=== PATIENT | female | born 1940 | race Caucasian/White ===

== ENCOUNTER → 2018-04-18 | Outpatient (CLI) | payer MEDICARE ==
--- NOTE | 2018-04-19 16:42 | BD ---
EXAMINATION TYPE: Axial Bone Density DATE OF EXAM: 04/18/2018 COMPARISON: 2013 CLINICAL HISTORY: post menopausal Height: 4'11 Weight: 190 FRAX RISK QUESTIONS: History of Fracture in Adulthood: y Secondary Osteoporosis: RISK FACTORS HISTORY OF: History of Wrist Fracture: left When: Surgery to )/Wrist (/left): When: 1998 Active: n Diet low in dairy products/other sources of calcium: n Postmenopausal woman: y Frequent falls: y MEDICATIONS: Additional Medications: blood pressure, pain Additional History: EXAM MEASUREMENTS: Bone mineral densitometry was performed using the [employer] System. Bone mineral density as measured about the Lumbar spine is: ----- L1-L4(G/cm2): 1.598 T Score Values are as follows: ----- L2: 3.3 ----- L3: 2.5 ----- L4: 4.5 ----- L1-L4:3.5 Bone mineral density has: Increased 8.7% since study of: 12/07/2013 Bone mineral density about the R hip (g/cm2): 0.774 Bone mineral density about the L hip (g/cm2): 0.856 T Score values are as follows -----R Neck: -1.9 -----L Neck: -1.3 -----R Total: -1.5 -----L Total: -0.7 Bone mineral density has: Decreased -5.4% since study of: 12/07/2013 IMPRESSION: Osteopenia (T Score between -2.5 and -1). There is slightly increased risk of fracture and the patient may be considered for treatment. Re-Screen 2-5 years. NOTE: T-SCORE=SD OF THE YOUNG ADULT MEAN.
--- NOTE | 2018-04-20 12:08 | MM ---
Reason for exam: screening (asymptomatic). Last mammogram was performed 2 years and 5 months ago. History: Patient is postmenopausal. Benign MG stereo VAD BX LT of the left breast, December 25, 2013. Benign excisional biopsy of the left breast, 2003. Physical Findings: A clinical breast exam by your physician is recommended on an annual basis and results should be correlated with mammographic findings. MG 3D Screening Mammo W/Cad Bilateral CC and MLO view(s) were taken. Prior study comparison: November 05, 2015, bilateral MG diagnostic mammo w CAD [facility]. December 03, 2014, bilateral MG screening mammo w CAD. There are scattered fibroglandular densities. Finding: There are stable, fine, diffuse/scattered calcifications in both breasts. Previous mammotome biopsy in the left breast. Post surgical changes in the left breast. ASSESSMENT: Benign, BI-RAD 2 RECOMMENDATION: Routine screening mammogram of both breasts in 1 year.
== END ==
LOC: RADMAMWWP 14:45
PROVIDERS: ATTEND Family Medicine
DX: Z12.31 Encounter for screening mammogram for malignant neoplasm of breast (principal); M85.80 Other specified disorders of bone density and structure, unspecified site; Z78.0 Asymptomatic menopausal state
CPT/HCPCS: 77063; 77067; 77080

== ENCOUNTER → 2018-12-14 | Outpatient (CLI) | payer MEDICARE ==
--- NOTE | 2018-12-14 11:37 | US ---
EXAMINATION TYPE: US abdomen complete DATE OF EXAM: 12/14/2018 COMPARISON: us CLINICAL HISTORY: R10.11 right upper quad pain. EXAM MEASUREMENTS: Liver Length: 11.99 cm Gallbladder Wall: 0.17 cm CBD: 0.21 cm Spleen: cm Right Kidney: 10.4 x 4.0 x 4.8 cm cm Left Kidney: 10.2 x 4.4 x 4.4 cm cm Patient morbidly obese with severe overlying midline bowel gas. Technically difficult and limited hossein dy. Pancreas: Obscured by bowel gas Liver: Increased attenuation, decreased visualization of vessels suggestive of fatty infiltrate Gallbladder: wnl Evidence for sonographic Brooks's sign: no CBD: wnl Spleen: wnl Right Kidney: No hydronephrosis or masses seen Left Kidney: No hydronephrosis or masses seen, inferior pole obscured by bowel gas Upper IVC: wnl Abd Aorta: partially obscured by overlying bowel gas, portions visualized wnl The intrahepatic portion of the IVC and proximal abdominal aorta are within normal limits. There is no evidence of cholelithiasis. Common bile duct is unremarkable. The visualized portions of the pa ncreas are homogenous. The spleen is unremarkable. Kidneys are symmetric and free of hydronephrosis . No renal lesions are seen. IMPRESSION: 1. Hepatic steatosis
== END | disposition home or self-care (01) ==
LOC: RADUSWWP 10:10
PROVIDERS: ATTEND Nurse Practitioner Family
DX: K76.0 Fatty (change of) liver, not elsewhere classified (principal)
CPT/HCPCS: 76700

== ENCOUNTER → 2019-08-28 | Outpatient (CLI) | payer MEDICARE ==
--- NOTE | 2019-09-04 08:04 | MM ---
Reason for exam: screening (asymptomatic). Last mammogram was performed 1 year and 4 months ago. History: Patient is postmenopausal. Benign MG stereo VAD BX LT of the left breast, December 25, 2013. Benign excisional biopsy of the left breast, 2003. Physical Findings: A clinical breast exam by your physician is recommended on an annual basis and results should be correlated with mammographic findings. MG 3D Screening Mammo W/Cad Bilateral CC, MLO, and XCCL view(s) were taken. Prior study comparison: April 18, 2018, bilateral MG 3d screening mammo w/cad. November 05, 2015, bilateral MG diagnostic mammo w CAD [facility]. There are scattered fibroglandular densities. There is chronic nodularity bilaterally. Increasing grouped calcifications near a previous 2 o'clock left breast biopsy site. Surgical clips left axilla. ASSESSMENT: Incomplete: need additional imaging evaluation, BI-RAD 0 RECOMMENDATION: Special view mammogram of the left breast. (magnifications) [facility] will attempt to contact patient to return for supplemental views.
== END | disposition home or self-care (01) ==
LOC: RADMAMWWP 11:51
PROVIDERS: ATTEND Family Medicine
DX: Z12.31 Encounter for screening mammogram for malignant neoplasm of breast (principal)
CPT/HCPCS: 77063; 77067

== ENCOUNTER → 2019-09-20 | Outpatient (CLI) | payer MEDICARE ==
--- NOTE | 2019-09-21 09:24 | MM ---
Reason for exam: additional evaluation requested from abnormal screening. Last mammogram was performed 1 month ago. History: Patient is postmenopausal. Benign MG stereo VAD BX LT of the left breast, December 25, 2013. Benign excisional biopsy of the left breast, 2003. Physical Findings: Nurse did not find any significant physical abnormalities on exam. MG 3D Work Up W/Cad LT CC with magnification, MLO with magnification, and LM view(s) were taken of the left breast. Prior study comparison: August 28, 2019, bilateral MG 3d screening mammo w/cad. April 18, 2018, bilateral MG 3d screening mammo w/cad. There are scattered fibroglandular densities. Finding: There are typically benign round, coarse, grouped/clustered calcifications in the upper outer quadrant of the left breast consistent with dystrophic calcifications post biopsy. These results were verbally communicated with the patient and result sheet given to the patient on 09/20/19. ASSESSMENT: Probably benign, BI-RAD 3 RECOMMENDATION: Follow-up diagnostic mammogram of the left breast in 6 months.
== END | disposition home or self-care (01) ==
LOC: RADMAMWWP 13:51
PROVIDERS: ATTEND Family Medicine
DX: R92.8 Other abnormal and inconclusive findings on diagnostic imaging of breast (principal)
CPT/HCPCS: 77065; G0279; 77061

== ENCOUNTER → 2020-05-10 | Outpatient (CLI) | payer MEDICARE ==
--- NOTE | 2020-05-10 13:53 | MM ---
Reason for exam: screening (asymptomatic). Last mammogram was performed 8 months ago. History: Patient is postmenopausal. Benign MG stereo VAD BX LT of the left breast, December 25, 2013. Benign excisional biopsy of the left breast, 2003. Physical Findings: A clinical breast exam by your physician is recommended on an annual basis and results should be correlated with mammographic findings. MG 3D Diag Mammo W/Cad LT CC and MLO view(s) were taken of the left breast. Prior study comparison: September 20, 2019, left breast MG 3d work up w/cad LT. August 28, 2019, bilateral MG 3d screening mammo w/cad. There are scattered fibroglandular densities. Finding: There are stable coarse heterogeneous, grouped/clustered calcifications in the upper outer quadrant, middle position of the left breast. No significant changes in finding since September 20, 2019 and August 28, 2019. These results were verbally communicated with the patient and result sheet given to the patient on 05/10/20. ASSESSMENT: Benign, BI-RAD 2 RECOMMENDATION: Return to routine screening mammogram schedule for both breasts. Back on schedule for August 2020.
== END | disposition home or self-care (01) ==
LOC: RADMAMWWP 12:46
PROVIDERS: ATTEND Family Medicine
DX: R92.8 Other abnormal and inconclusive findings on diagnostic imaging of breast (principal)
CPT/HCPCS: 77065; G0279; 77061

== ENCOUNTER → 2020-11-22 | Outpatient (CLI) | payer MEDICARE ==
--- NOTE | 2020-11-25 10:21 | MM ---
Reason for exam: screening (asymptomatic). Last mammogram was performed 6 months ago. History: Patient is postmenopausal. Benign MG stereo VAD BX LT of the left breast, December 25, 2013. Benign excisional biopsy of the left breast, 2003. Physical Findings: A clinical breast exam by your physician is recommended on an annual basis and results should be correlated with mammographic findings. MG 3D Screening Mammo W/Cad Bilateral CC, MLO, and XCCL view(s) were taken. Prior study comparison: May 10, 2020, left breast MG 3d diag mammo w/cad LT. September 20, 2019, left breast MG 3d work up w/cad LT. The breast tissue is heterogeneously dense. This may lower the sensitivity of mammography. Stable benign calcifications. There is no discrete abnormality. No significant changes when compared with prior studies. ASSESSMENT: Benign, BI-RAD 2 RECOMMENDATION: Routine screening mammogram of both breasts in 1 year.
== END | disposition home or self-care (01) ==
LOC: RADMAMWWP 13:43
PROVIDERS: ATTEND Family Medicine
DX: Z12.31 Encounter for screening mammogram for malignant neoplasm of breast (principal); Z78.0 Asymptomatic menopausal state
CPT/HCPCS: 77063; 77067

== ENCOUNTER → 2022-07-28 | Outpatient (CLI) | payer MEDICARE ==
--- NOTE | 2022-07-29 08:55 | CT ---
EXAMINATION TYPE: CT abdomen pelvis w con DATE OF EXAM: 07/28/2022 COMPARISON: 03/27/2014 HISTORY: 81-year-old female R10.32, left LOWER ABDOMINAL PAIN TECHNIQUE: Contiguous axial scanning of the abdomen and pelvis following administration of 100 ml Iso bria 300 IV contrast. Delayed images through the kidneys and coronal/sagittal reconstructions perform ed. CT DLP: 1528.70 mGycm Automated exposure control for dose reduction was used. FINDINGS: Heart upper limits of normal in size without pericardial effusion. Lung bases clear without pleural e ffusion. Tiny hiatal hernia. A couple tiny benign hepatic cysts are present measuring up to 7 mm. Portal venous system is patent. No biliary ductal dilatation. The gallbladder, adrenal glands, right kidney, spleen, and pancreas within normal limits. Symmetric u ptake and excretion of contrast from both kidneys. Tiny 1.2 cm cortical cyst upper pole left kidney. No dilated small bowel, free fluid, or free air. No mesenteric or retroperitoneal lymphadenopathy. The appendix is not clearly identified. No secondary findings of acute appendicitis in the right lowe r quadrant. Oral contrast progressed to the mid transverse colon. There is mild overall stool burden. Left-sided colonic diverticulosis, greatest in the lower descending and proximal sigmoid colon. Ther e is previous staple line from prior resection and reanastomosis of the mid sigmoid colon and adjacen t surgical clips. No pericolonic inflammatory change. There is pelvic floor relaxation redemonstrated. Mild to moderate circumferential bladder wall thicke ange. Uterus surgically absent. Neither ovary clearly seen. No abnormal fluid collections pelvis or p elvic lymphadenopathy. Bones: Mild degenerative change of both hips. Advanced spondylotic change throughout the visualized l umbar spine. Dictation the lower thoracic spine. Possible multiple levels of severe secondary spinal canal stenosis in the lumbar spine. IMPRESSION: 1. LEFT-SIDED COLONIC DIVERTICULOSIS. PREVIOUS RESECTION AND RE-ANASTOMOSIS ALONG THE MID SIGMOID COL ON AND SOME ADJACENT SURGICAL CLIPS IN THE MESENTERY. NO CT EVIDENCE FOR ACUTE DIVERTICULITIS AT THIS TIME. 2. PELVIC FLOOR RELAXATION. STATUS POST HYSTERECTOMY. 3. CIRCUMFERENTIAL BLADDER WALL THICKENING MAY BE CHRONIC FROM THE PATIENT. CORRELATE TO EXCLUDE CYST ITIS. 4. ADVANCED SPONDYLOTIC CHANGE THROUGHOUT THE LUMBAR SPINE. 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 THERE M AY BE LEVELS OF FOCAL SEVERE SPINAL CANAL STENOSIS THROUGHOUT THE LUMBAR SPINE. 5. TINY HIATAL HERNIA.
== END | disposition home or self-care (01) ==
LOC: RADCTMAIN 12:01
PROVIDERS: ATTEND Family Medicine
DX: K44.9 Diaphragmatic hernia without obstruction or gangrene (principal); N32.89 Other specified disorders of bladder; K57.30 Diverticulosis of large intestine without perforation or abscess without bleeding; M47.816 Spondylosis without myelopathy or radiculopathy, lumbar region
CPT/HCPCS: 82565; 84520; 74177; 36415; Q9967

== ENCOUNTER → 2022-12-21 | Outpatient (CLI) | payer MEDICARE ==
--- NOTE | 2022-12-21 10:14 | MM ---
Reason for Exam: Screening (asymptomatic). Last mammogram was performed 2 year(s) and 1 month(s) ago. Patient History: Menarche at age 15. First Full-Term at age 25. Left ovary removed at age 58. Right ovary removed at age 58. Hysterectomy at age 58. Postmenopausal. 2003, Benign Excisional Biopsy on the left side. 12/25/2013, Benign Core Biopsy on the left side. Risk Values: Irena 5 year model risk: 2.2%. NCI Lifetime model risk: 3.4%. Prior Study Comparison: 09/20/2019 Left Diagnostic Mammogram, [facility]. 05/10/2020 Left Diagnostic Mammogram, [facility]. 11/22/2020 Bilateral Screening Mammogram, [facility]. Tissue Density: There are scattered fibroglandular densities. Findings: Analyzed By CAD. There is no suspicious group of microcalcifications or new suspicious mass in either breast. Stable benign calcifications within both breasts. Biopsy clips within the left breast. There is no suspicious group of microcalcifications or new suspicious mass in either breast. Stable benign calcifications within both breasts. Biopsy clips within the left breast. Surgical clips within the left axilla. There is no suspicious group of microcalcifications or new suspicious mass in either breast. Stable benign calcifications within both breasts. Biopsy clips within the left breast. Surgical clips within the left axilla. Chronic nodularity within the right breast. Overall Assessment: Benign, BI-RAD 2 Management: Screening Mammogram of both breasts in 1 year. A clinical breast exam by your physician is recommended on an annual basis and results should be correlated with mammographic findings. Note on Irena scores and lifetime risk: 1. A Irena score greater than 3% is considered moderate risk. If this is the case, consider specialist referral to assess eligibility for a risk reducing agent. If overall lifetime risk for the development of breast cancer is 20% or higher, the patient may qualify for future screening with alternating mammogram and breast MRI. Electronically signed and approved by: Jethro Mercado D.O.
== END | disposition home or self-care (01) ==
LOC: RADMAMWWP 09:45
PROVIDERS: ATTEND Family Medicine
DX: Z12.31 Encounter for screening mammogram for malignant neoplasm of breast (principal); Z78.0 Asymptomatic menopausal state
CPT/HCPCS: 77063; 77067

== ENCOUNTER → 2023-03-31 | Outpatient (CLI) | payer MEDICARE ==
--- NOTE | 2023-03-31 18:29 | BD ---
EXAMINATION TYPE: Axial Bone Density DATE OF EXAM: 03/31/2023 CLINICAL HISTORY: 82 years old Female. ICD-10 CODE: Z78.0 ASYMPTOMATIC MENOPAUSAL STATE Height: 60 Weight: 177 FRAX RISK QUESTIONS: Alcohol (3 or more units per day): no Family History (Parent hip fracture): no Glucocorticoids (More than 3mos): no (Ex: prednisone, prednisolone, methylprednisolone, dexamethasone, and hydrocortisone). History of Fracture in Adulthood: yes Secondary Osteoporosis: 1. Type 1 Diabetes: no 2. Hyperthyroidism: no 3. Menopause before 45: no 4. Malnutrition: no 5. Chronic liver disease: no Rheumatoid Arthritis: no Current Tobacco Use: no RISK FACTORS HISTORY OF: left wrist fx -1998 Surgery to Spine/Hip(right/left)/Wrist (right/left): no Additional History: EXAM MEASUREMENTS: Bone mineral densitometry was performed using the [employer] System. Bone mineral density as measured about the Lumbar spine is: ----- L1-L4(G/cm2): 1.741 T Score Values are as follows: ----- L1: 2.5 ----- L2: 2.8 ----- L3: 5.5 ----- L4: 7.1 ----- L1-L4: 4.7 Z Score Values are as follows: ----- L1: 3.8 ----- L2: 4.1 ----- L3: 6.9 ----- L4: 8.5 ----- L1-L4: 6.0 Bone mineral density has: increased 8.9 % since study of: 2019 Bone mineral density about the R hip (g/cm2): 0.700 Bone mineral density about the L hip (g/cm2): 0.787 T Score values are as follows: -----R Neck: -2.7 -----L Neck: -2.2 -----R Total: -2.4 -----L Total: -1.8 Z Score values are as follows: -----R Neck: -0.9 -----L Neck: -0.4 -----R Total: -0.8 -----L Total: -0.1 Bone mineral density has: decreased -14.7 % since study of: 2019 FRAX%s: The graph provided illustrates a 17.8% chance for a major osteoporotic fx and a 5.7% chance f or the hips probability for fx in 10 years time. IMPRESSION: Osteoporosis (T Score less than -2.5). There is increased fracture risk and therapy is usually indicated based on age. Re-Screen 1-2 years. NOTE: T-SCORE=SD OF THE YOUNG ADULT MEAN.
== END | disposition home or self-care (01) ==
LOC: RADBDWWP 12:44
PROVIDERS: ATTEND Family Medicine
DX: M81.0 Age-related osteoporosis without current pathological fracture (principal); Z78.0 Asymptomatic menopausal state
CPT/HCPCS: 77080

== ENCOUNTER 2023-05-14 21:49 | Observation (INO) | payer MEDICARE ==
--- NOTE | 2023-05-14 22:08 | ED ---
Chest Pain HPI - General Source: patient, RN notes reviewed Mode of arrival: EMS Limitations: no limitations <Mandy Kelly - Last Filed: 05/14/23 22:07> - General Source: patient, RN notes reviewed, old records reviewed <Ozzie Crawford - Last Filed: 05/15/23 03:58> - General Chief Complaint: Chest Pain Stated Complaint: chest pain Time Seen by Provider: 05/14/23 22:07 - History of Present Illness Initial Comments: Patient is an 82-year-old female presented ER via EMS with chief complaint chest pain. Patient states this started about 8 PM. (Mandy Kelly) Patient is an 82-year-old female who presents emergency department for chest pain. Received 324 mg of aspirin as well as nitro for the pain. States it is in the center of her chest with occasional radiation of the left shoulder. 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 Denies any cardiac history in the past. States this has happened previously though having the chest pain. Started at approximately 8 PM. Is improved at this time. Unknown if the nitro on the way here improved it. Presents for further evaluation. Describes the pain as sharp, achy (Ozzie Crawford) - Related Data Home Medications Medication Instructions Recorded Confirmed HYDROcodone/APAP 10-325MG [[place] 1 tab PO TID 05/19/22 05/19/22 10-325] Losartan Potassium [Cozaar] 100 mg PO DAILY 05/19/22 05/19/22 amLODIPine [Norvasc] 5 mg PO DAILY 05/19/22 05/19/22 Previous Rx's Medication Instructions Recorded Pantoprazole [Protonix] 40 mg PO DAILY #10 tab 05/19/22 Allergies Allergy/AdvReac Type Severity Reaction Status Date / Time No Known Allergies Allergy Verified 05/19/22 07:24 Review of Systems ROS Other: All systems not noted in ROS Statement are negative. <Mandy Kelly - Last Filed: 05/14/23 22:07> ROS Other: All systems not noted in ROS Statement are negative. <Ozzie Crawford - Last Filed: 05/15/23 03:58> ROS Statement: Those systems with pertinent positive or pertinent negative responses have been documented in the HPI. Review of Systems: CONST: Denies fever EYES: Denies blurry vision ENT: Denies nasal congestion C/V: Endorses chest pain RESP: Denies shortness of breath GI: Denies abdominal pain : Denies dysuria SKIN: Denies rash. MSK: Denies joint pain. NEURO: Denies headache (Ozzie Crawford) EKG Findings - EKG Comments: EKG Findings:: 12-lead Electrocardiogram Interpretation Note. EKG was reviewed and interpreted by myself. 12-lead ECG performed at 2208 is interpreted by me as revealing normal sinus rhythm at a rate of 89 beats per minute. [place] is normal. RI interval is 175 ms, QRS duration is 87 ms, QTc is 394 ms. PVC present.. There were no ST or T wave abnormalities to suggest myocardial ischemia or injury. R wave progression across the precordium was satisfactory. By my interpretation this EKG is non-diagnostic for obvious acute ischemia. - EKG Results: EKG: interpreted by ERMD <Ozzie Crawford - Last Filed: 05/15/23 03:58> Past Medical History Past Medical History: Chest Pain / Angina, GERD/Reflux, Hypertension, Pneumonia Additional Past Medical History / Comment(s): left ankle pain, DIVERTICULAR DISEASE,ARTHRITIS, Vertigo History of Any Multi-Drug Resistant Organisms: None Reported Past Surgical History: Appendectomy, Bladder Surgery, Heart Catheterization, Hysterectomy Additional Past Surgical History / Comment(s): BOWEL RESECTION, UMB HERNIA REPAIR, MILLER CATARACTS,COLONOSCOPY Past Anesthesia/Blood Transfusion Reactions: Motion Sickness Past Psychological History: Anxiety Past Alcohol Use History: None Reported Past Drug Use History: None Reported - Past Family History Mother Family Medical History: CVA/TIA, Dementia, Hypertension, Seizure Disorder Additional Family Medical History / Comment(s): AT AGE 83 Father Family Medical History: Diabetes Mellitus, Hypertension Additional Family Medical History / Comment(s): HERNIA <Mandy Kelly - Last Filed: 05/14/23 22:07> General Exam Limitations: no limitations <Mandy Kelly - Last Filed: 05/14/23 22:07> <Ozzie Crawford - Last Filed: 05/15/23 03:58> - General Exam Comments Initial Comments: Visual Physical Exam Vital signs reviewed General: Well-appearing, nontoxic, no acute distress. Head: Normocephalic, atraumatic Eyes: PERRLA, EOMI ENT: Airway patent Chest: Nonlabored breathing Skin: No visual rash, normal skin tone Neuro: Alert and oriented 3 Musculoskeletal: No gross abnormalities (Mandy Kelly) General: Appears in no acute distress. HEAD: Normal with no signs of head trauma. EYES: PERRLA, EOMI, conjunctiva normal, no discharge. ENT: Hearing grossly intact, normal oropharynx. RESPIRATORY: Clear breath sounds bilaterally. No wheezes, rales, or rhonchi. C/V: Regular rate and rhythm. S1 and S2 auscultated, no edema, peripheral pulses 2+ and intact throughout. Chest pain not reproducible on palpation. ABD: Abd is soft, nontender, nondistended EXT: Normal range of motion, no obvious deformity SKIN: No rashes or lesions observed on exposed skin. NEURO: Alert and oriented x 4. (Ozzie Crawford) Course Vital Signs 05/14/23 05/14/23 05/15/23 22:01 23:59 01:10 Temperature 98.5 F Pulse Rate 87 67 61 Respiratory 18 18 18 Rate Blood Pressure 124/67 148/88 142/74 O2 Sat by Pulse 98 97 97 Oximetry 05/15/23 03:00 Temperature Pulse Rate 62 Respiratory 18 Rate Blood Pressure 122/72 O2 Sat by Pulse 96 Oximetry Chest Pain MDM <Mandy Kelly - Last Filed: 05/14/23 22:07> <Ozzie Crawford - Last Filed: 05/15/23 03:58> - MDM I performed the quick note portion of the exam. Electronically signed by Mandy Kelly PA-C (Mandy Kelly) Was pt. sent in by a medical professional or institution ([facility], [employer], urgent care, hospital, or intermediate...) When possible be specific @ -No Did you speak to anyone other than the patient for history (EMS, parent, family, police, friend...)? What history was obtained from this source @ -No Did you review nursing and triage notes (agree or disagree)? Why? @ -I reviewed and agree with nursing and triage notes Were old charts reviewed (outside hosp., previous admission, EMS record, old EKG, old radiological studies, urgent care reports/EKG's, intermediate records)? Report findings @ -Old charts reviewed Differential Diagnosis (chest pain, altered mental status, abdominal pain women, abdominal pain men, vaginal bleeding, weakness, fever, dyspnea, syncope, headache, dizziness, GI bleed, back pain, seizure, CVA, palpatations, mental health, musculoskeletal)? @ -Differential Chest Pain: Stable Angina, Unstable Angina, STEMI, NSTEMI Aortic Dissection, Pneumothorax, Musculoskeletal, Esophageal Spasm GERD, Cholecystitis, Pancreatitis, Zoster, this is not meant to be an all-inclusive list. EKG interpreted by me (3pts min.). @ -As above X-rays interpreted by me (1pt min.). @ -Chest x-ray reveals no obvious acute cardiopulmonary process. Appears to be a atelectasis that she is having no upper respiratory symptoms. CT interpreted by me (1pt min.). @ -None done U/S interpreted by me (1pt. min.). @ -None done What testing was considered but not performed or refused? (CT, X-rays, U/S, labs)? Why? @ -None What meds were considered but not given or refused? Why? @ -None Did you discuss the management of the patient with other professionals (professionals i.e. , PA, [employer]GER [employer], lab, RT, psych nurse, director social service, fountain clerk, teacher, ski patrol officer, telephonic case manager)? Give summary @ -Discussed with the admitting team, Dr. Hill of [facility] who accepted the admission. Was smoking cessation discussed for >3mins.? @ -No Was critical care preformed (if so, how long)? @ -No Were there social determinants of health that impacted care today? How? (Homelessness, low income, unemployed, alcoholism, drug addiction, transportation, low edu. Level, literacy, decrease access to med. care, prison, rehab)? @ -No Was there de-escalation of care discussed even if they declined (Discuss DNR or withdrawal of care, Hospice)? DNR status @ -No What co-morbidities impacted this encounter? (DM, HTN, Smoking, COPD, CAD, Cancer, CVA, ARF, Chemo, Hep., AIDS, mental health diagnosis, sleep apnea, morbid obesity)? @ -None Was patient admitted / discharged? Hospital course, mention meds given and route, prescriptions, significant lab abnormalities, going to OR and other pertinent info. @ -Based on the patient's presentation and physical exam, presents with chest pain. We will obtain cardiopulmonary workup. She will be given nitroglycerin tablets. Originally seen as a quick note. Vital signs within acceptable limits. Patient is feeling improved versus earlier. Has been ongoing for multiple hours. She has already received aspirin from EMS. Additional nitro will be administered. Patient's labs remarkable for undetectable troponin. Slight leukocytosis. EKG shows no signs of acute ischemia. Chest x-ray shows bibasilar atelectasis versus pneumonia but she is having no upper respiratory symptoms and therefore I do believe it is likely atelectasis. Chest pain does improve with typical analgesia medications. I discussed results with the patient. Nitro did nothing for her pain however she is feeling improved at this time. I did recommend admission observation as her heart score is moderate. She was in agreement this plan. Cardiology will be consulted. I spoke with the admitting physician, Dr. Hill of [facility] who accepted the admission. Undiagnosed new problem with uncertain prognosis? @ -No Drug Therapy requiring intensive monitoring for toxicity (Heparin, Nitro, Insulin, Cardizem)? @ -No Were any procedures done? @ -No Diagnosis/symptom? @ -Chest pain Acute, or Chronic, or Acute on Chronic? @ -Acute Uncomplicated (without systemic symptoms) or Complicated (systemic symptoms)? @ -Complicated Side effects of treatment? @ -No Exacerbation, Progression, or Severe Exacerbation? @ -No Poses a threat to life or bodily function? How? (Chest pain, [place], [place], pneumonia, PE, COPD, DKA, ARF, appy, cholecystitis, CVA, Diverticulitis, Homicidal, Suicidal, threat to staff... and all critical care pts) @ -Possibly, yes (Ozzie Crawford) Disposition <Mandy Kelly - Last Filed: 05/14/23 22:07> Time of Disposition: 01:00 <Ozzie Crawford - Last Filed: 05/15/23 03:58> Clinical Impression: Chest pain Disposition: ADMITTED IP TO THIS HOSP Condition: Stable
[2023-05-14 22:22] LABS: Basophils # (A) 0.1 k/uL (0-0.2); Basophils % (A) 0 %; Eosinophils # (A) 0.2 k/uL (0-0.7); Eosinophils % (A) 2 %; HCT 38.5 % (34.0-46.0); Lymphocytes # (A) 1.3 k/uL (1.0-4.8); Lymphocytes % (A) 10 %; MCH 30.9 pg (25.0-35.0); MCHC 33.8 g/dL (31.0-37.0); MCV 91.4 fL (80.0-100.0); Mean Platelet Volume 7.4; Monocytes # (A) 0.3 k/uL (0-1.0); Monocytes % (A) 3 %; Neutrophils # (A) 11.4 k/uL (1.3-7.7); Neutrophils % (A) 85 %; Platelet Count 278 k/uL (150-450); RBC 4.21 m/uL (3.80-5.40); RDW 13.2 % (11.5-15.5); WBC 13.5 k/uL (3.8-10.6)
[2023-05-14 22:32] LABS: ALT 16 U/L (4-34); AST 28 U/L (14-36); African American GFR (CKD) 48 (>60 ml/min/1.73 sqM); Albumin 4.2 g/dL (3.5-5.0); Alkaline Phosphatase 115 U/L (38-126); Anion Gap 8 mmol/L; Blood Urea Nitrogen 37 mg/dL (7-17); Calcium 8.8 mg/dL (8.4-10.2); Carbon Dioxide 23 mmol/L (22-30); Chloride 105 mmol/L (98-107); Glucose 129 mg/dL (74-99); Non-African American GFR(CKD) 42 (>60 ml/min/1.73 sqM); Potassium 4.5 mmol/L (3.5-5.1); Sodium 136 mmol/L (137-145); Total Bilirubin 0.5 mg/dL (0.2-1.3); Total Protein 7.5 g/dL (6.3-8.2)
[2023-05-14 22:37] LABS: INR 0.9 (<1.2); Partial Thromboplastin Time 24.5 sec (22.0-30.0); Prothrombin Time 10.4 sec (10.0-12.5)
--- NOTE | 2023-05-14 23:10 | XR ---
EXAM: XR Chest, 2 Views CLINICAL HISTORY: ITS.REASON XR Reason: Chest Pain TECHNIQUE: Frontal and lateral views of the chest. COMPARISON: 05/19/2022 FINDINGS: Lungs: Mild bibasilar opacities. Pleural space: Unremarkable. No pneumothorax. Heart: No cardiomegaly. Bones/joints: Thoracic degenerative disc disease. Vasculature: Tortuous thoracic aorta. IMPRESSION: Mild bibasilar opacities. Atelectasis versus pneumonia.
[2023-05-15] MEDS: SODIUM CHLORIDE 0.9% 1,000 ML IV STA (00:45)
[2023-05-15] MEDS ORDERED: NALOXONE 0.4 MG/ML 1 ML VIAL IV PRN (01:05)
[2023-05-15] MEDS: NITROGLYCERIN SL TABS 0.4 MG TAB SUBLINGUAL PRN (01:08)
[2023-05-15] MEDS: KETOROLAC 15 MG/ML 1 ML VIAL IVP STA (02:10)
[2023-05-15] MEDS: HEPARIN SODIUM,PORCINE 5,000 UNIT/ML 1 ML VIAL SQ SCH (09:11)
[2023-05-15] MEDS ORDERED: ACETAMINOPHEN TAB 500 MG TAB PO PRN (11:47)
[2023-05-15] MEDS ORDERED: cloNIDine HCL 0.1 MG TAB PO PRN (11:47)
[2023-05-15] MEDS: HYDROcodone/APAP 10-325MG 1 EACH TAB PO PRN (12:11)
--- NOTE | 2023-05-15 12:49 | P.CRDCN ---
History of Present Illness Consult date: 05/15/23 Chief complaint: CP History of present illness: The patient is a pleasant 82-year-old female patient with a past medical history significant for hypertension presented to the hospital complaining of chest discomfort. She was in her usual state of health till yesterday when she was doing some home work including cooking and started experiencing discomfort in the chest. The discomfort was in the middle of the chest as a dull kind of discomfort radiated to her neck. No associated symptoms of shortness of breath or dizziness or lightheadedness or any feeling of heart racing or fluttering or any presyncope or syncope. She has no history of coronary artery disease or congestive heart failure or cardiac arrhythmia but does have hypertension and she is overweight. She underwent further workup including an EKG and that showed sinus mechanism with T wave inversion inferiorly similar to an EKG was performed in 2018 but different from an EKG was performed in 2022. Beside that her cardiac enzymes came in to be unremarkable. The chest x-ray did not show any acute abnormalities. The rest of the blood work came in to be unremarkable with currently she is chest pain-free. She was seen by our service in 2022 with chest discomfort and at that point she underwent an echo which revealed normal LV systolic function with no significant valvular abnormalities. She had a stress test which was dobutamine stress echocardiogram in 2018 came in to be unremarkable. The pressure has been elevated and consistent with a stage II hypertension in spite of being compliant with her medications. The examination revealed regular rhythm with a distant heart sounds and clear breathing sounds bilaterally and soft nontender abdomen and no bilateral lower extremities edema Assessment Chest discomfort Hypertension Overweight Plan Acute coronary syndrome was ruled out Increase the dose of amlodipine [facility] Follow-up with the patient Past Medical History Past Medical History: Chest Pain / Angina, GERD/Reflux, Hypertension, Pneumonia Additional Past Medical History / Comment(s): left ankle pain, DIVERTICULAR DISEASE,ARTHRITIS, Vertigo History of Any Multi-Drug Resistant Organisms: None Reported Past Surgical History: Appendectomy, Bladder Surgery, Heart Catheterization, Hysterectomy Additional Past Surgical History / Comment(s): BOWEL RESECTION, UMB HERNIA REPAIR, MILLER CATARACTS,COLONOSCOPY Past Anesthesia/Blood Transfusion Reactions: Motion Sickness Past Psychological History: Anxiety Past Alcohol Use History: None Reported Past Drug Use History: None Reported - Past Family History Mother Family Medical History: CVA/TIA, Dementia, Hypertension, Seizure Disorder Additional Family Medical History / Comment(s): AT AGE 83 Father Family Medical History: Diabetes Mellitus, Hypertension Additional Family Medical History / Comment(s): HERNIA Medications and Allergies Home Medications Medication Instructions Recorded Confirmed Type HYDROcodone/APAP 10-325MG [[place] 1 tab PO TID PRN 05/19/22 05/15/23 History 10-325] Losartan Potassium [Cozaar] 100 mg PO DAILY 05/19/22 05/15/23 History amLODIPine [Norvasc] 5 mg PO DAILY 05/19/22 05/15/23 History Acetaminophen Tab [Tylenol Tab] 500 mg PO Q6H PRN 05/15/23 05/15/23 History Ascorbic Acid [Vitamin C] 1,000 mg PO DAILY 05/15/23 05/15/23 History Cholecalciferol [Vitamin D3 (25 25 mcg PO DAILY 05/15/23 05/15/23 History Mcg = 1000 Iu)] Cyanocobalamin [Vitamin B-12] 500 mcg PO DAILY 05/15/23 05/15/23 History Gabapentin [Neurontin] 300 mg PO DAILY 05/15/23 05/15/23 History Naproxen Sodium [Aleve] 220 mg PO BID PRN 05/15/23 05/15/23 History cloNIDine HCL 0.1 mg PO TID PRN 05/15/23 05/15/23 History Allergies Allergy/AdvReac Type Severity Reaction Status Date / Time No Known Allergies Allergy Verified 05/15/23 10:44 Physical Exam Vitals: Vital Signs Temp Pulse Resp BP Pulse Ox 05/15/23 11:45 66 20 170/81 95 05/15/23 10:00 68 16 142/69 98 05/15/23 09:00 98 F 68 16 153/79 98 05/15/23 07:47 65 16 146/79 97 05/15/23 06:03 68 18 146/79 96 05/15/23 03:00 62 18 122/72 96 05/15/23 01:10 61 18 142/74 97 05/14/23 23:59 67 18 148/88 97 05/14/23 22:01 98.5 F 87 18 124/67 98 Intake and Output 05/14/23 05/15/23 05/15/23 22:59 06:59 14:59 Other: Weight 80.739 kg Results 05/14/23 22:13 05/14/23 22:13 Cardiac Enzymes 05/14/23 05/14/23 05/15/23 Range/Units 22:13 22:13 04:49 AST 28 (14-36) U/L Troponin I <0.012 <0.012 (0.000-0.034) ng/mL 05/15/23 Range/Units 09:12 AST (14-36) U/L Troponin I <0.012 (0.000-0.034) ng/mL Coagulation 05/14/23 Range/Units 22:13 PT 10.4 (10.0-12.5) sec APTT 24.5 (22.0-30.0) sec CBC 05/14/23 Range/Units 22:13 WBC 13.5 H (3.8-10.6) k/uL RBC 4.21 (3.80-5.40) m/uL Hgb 13.0 (11.4-16.0) gm/dL Hct 38.5 (34.0-46.0) % Plt Count 278 (150-450) k/uL Comprehensive Metabolic Panel 05/14/23 Range/Units 22:13 Sodium 136 L (137-145) mmol/L Potassium 4.5 (3.5-5.1) mmol/L Chloride 105 (98-107) mmol/L Carbon Dioxide 23 (22-30) mmol/L BUN 37 H (7-17) mg/dL Creatinine 1.23 H (0.52-1.04) mg/dL Glucose 129 H (74-99) mg/dL Calcium 8.8 (8.4-10.2) mg/dL AST 28 (14-36) U/L ALT 16 (4-34) U/L Alkaline Phosphatase 115 (38-126) U/L Total Protein 7.5 (6.3-8.2) g/dL Albumin 4.2 (3.5-5.0) g/dL Current Medications Generic Name Dose Route Start Last Admin Trade Name Freq PRN Reason Stop Dose Admin Acetaminophen 500 mg 05/15/23 11:47 Acetaminophen Tab 500 Mg Tab PO Q6H PRN Pain or Fever > 100.5 Hydrocodone Bitart/Acetaminophen 1 each 05/15/23 11:47 05/15/23 12:11 Hydrocodone/Apap 10-325mg 1 Each Tab PO 1 each TID PRN Administration Pain Amlodipine Besylate 5 mg 05/16/23 09:00 Amlodipine 5 Mg Tab PO DAILY [facility] Ascorbic Acid 1,000 mg 05/16/23 09:00 Ascorbic Acid 500 Mg Tab PO DAILY [facility] Cholecalciferol 25 mcg 05/16/23 09:00 Cholecalciferol 25 Mcg (1000 Iu) Tablet PO DAILY [facility] Clonidine 0.1 mg 05/15/23 11:47 Clonidine Hcl 0.1 Mg Tab PO TID PRN high bp Cyanocobalamin 500 mcg 05/16/23 09:00 Cyanocobalamin 500 Mcg Tab PO DAILY [facility] Gabapentin 300 mg 05/16/23 09:00 Gabapentin 300 Mg Cap PO DAILY [facility] Heparin Sodium (Porcine) 5,000 unit 05/15/23 09:00 05/15/23 09:11 Heparin Sodium,Porcine 5,000 Unit/Ml 1 Ml Vial SQ 5,000 unit Q12HR STEFF Administration Losartan Potassium 100 mg 05/16/23 09:00 Losartan 50 Mg Tab PO DAILY [facility] Naloxone HCl 0.2 mg 05/15/23 01:05 Naloxone 0.4 Mg/Ml 1 Ml Vial IV Q2M PRN Opioid Reversal Nitroglycerin 0.4 mg 05/15/23 00:28 05/15/23 01:08 Nitroglycerin Sl Tabs 0.4 Mg Tab SUBLINGUAL 0.4 mg Q5M PRN Administration Chest Pain Intake and Output 05/14/23 05/15/23 05/15/23 22:59 06:59 14:59 Other: Weight 80.739 kg 05/14/23 22:13 05/14/23 22:13
[2023-05-15] MEDS: GABAPENTIN 300 MG CAP PO STA (13:28)
[2023-05-15] MEDS: amLODIPine 10 MG TAB PO SCH (13:28)
[2023-05-15] MEDS ORDERED: AMINOPHYLLINE 500 MG/20 ML VIAL IV PRN (14:46)
[2023-05-15] MEDS ORDERED: CAFFEINE CITRATE 60 MG/3 ML VIAL IV PRN (14:46)
--- NOTE | 2023-05-15 18:50 | P.HPIM ---
History of Present Illness H&P Date: 05/15/23 Chief Complaint: Chest pain 82-year-old female presented ER via EMS with chief complaint chest pain. Patient states this started about 8 PM. (Mandy Klely) Patient is an 82-year-old female who presents emergency department for chest pain. Received 324 mg of aspirin as well as nitro for the pain. States it is in the center of her chest with occasional radiation of the left shoulder. 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 Denies any cardiac history in the past. States this has happened previo usly though having the chest pain. Started at approximately 8 PM. Is improved at this time. Unknown if the nitro on the way here improved it. Presents for further evaluation. Describes the pain as sharp, achy EKG and that showed sinus mechanism with T wave inversion inferiorly similar to an EKG was performed in 2018 but different from an EKG was performed in 2022. Blood work completed in ED reveals a WBC of 13.5, hemoglobin of 13 and platelet count of 78, sodium 136, potassium 4.5, BUNs/creatinine of 37/1.23, blood glucose of 129, troponin less than 0.012 Chest x-ray reveals mild bibasilar opacities, atelectasis versus pneumonia Review of Systems REVIEW OF SYSTEMS: CONSTITUTIONAL: No fever, no malaise, no fatigue. HEENT: No recent visual problems or hearing problems. Denied any sore throat. CARDIOVASCULAR: No chest pain, orthopnea, PND, no palpitations, no syncope. PULMONARY: No shortness of breath, no cough, no hemoptysis. GASTROINTESTINAL: No diarrhea, no nausea, no vomiting, no abdominal pain. NEUROLOGICAL: No headaches, no weakness, no numbness. HEMATOLOGICAL: Denies any bleeding or petechiae. GENITOURINARY: Denies any burning micturition, frequency, or urgency. MUSCULOSKELETAL/RHEUMATOLOGICAL: Denies any joint pain, swelling, or any muscle pain. ENDOCRINE: Denies any polyuria or polydipsia. The rest of the 14-point review of systems is negative. Past Medical History Past Medical History: Chest Pain / Angina, GERD/Reflux, Hypertension, Pneumonia Additional Past Medical History / Comment(s): left ankle pain, DIVERTICULAR DISEASE,ARTHRITIS, Vertigo History of Any Multi-Drug Resistant Organisms: None Reported Past Surgical History: Appendectomy, Bladder Surgery, Heart Catheterization, Hysterectomy Additional Past Surgical History / Comment(s): BOWEL RESECTION, UMB HERNIA REPAIR, MILLER CATARACTS,COLONOSCOPY Past Anesthesia/Blood Transfusion Reactions: Motion Sickness Past Psychological History: Anxiety Past Alcohol Use History: None Reported Past Drug Use History: None Reported - Past Family History Mother Family Medical History: CVA/TIA, Dementia, Hypertension, Seizure Disorder Additional Family Medical History / Comment(s): AT AGE 83 Father Family Medical History: Diabetes Mellitus, Hypertension Additional Family Medical History / Comment(s): HERNIA Medications and Allergies Home Medications Medication Instructions Recorded Confirmed Type HYDROcodone/APAP 10-325MG [[place] 1 tab PO TID PRN 05/19/22 05/15/23 History 10-325] Losartan Potassium [Cozaar] 100 mg PO DAILY 05/19/22 05/15/23 History amLODIPine [Norvasc] 5 mg PO DAILY 05/19/22 05/15/23 History Acetaminophen Tab [Tylenol Tab] 500 mg PO Q6H PRN 05/15/23 05/15/23 History Ascorbic Acid [Vitamin C] 1,000 mg PO DAILY 05/15/23 05/15/23 History Cholecalciferol [Vitamin D3 (25 25 mcg PO DAILY 05/15/23 05/15/23 History Mcg = 1000 Iu)] Cyanocobalamin [Vitamin B-12] 500 mcg PO DAILY 05/15/23 05/15/23 History Gabapentin [Neurontin] 300 mg PO DAILY 05/15/23 05/15/23 History Naproxen Sodium [Aleve] 220 mg PO BID PRN 05/15/23 05/15/23 History cloNIDine HCL 0.1 mg PO TID PRN 05/15/23 05/15/23 History Allergies Allergy/AdvReac Type Severity Reaction Status Date / Time No Known Allergies Allergy Verified 05/15/23 10:44 Physical Exam Vitals: Vital Signs Temp Pulse Resp BP Pulse Ox 05/15/23 11:45 66 20 170/81 95 05/15/23 10:00 68 16 142/69 98 05/15/23 09:00 98 F 68 16 153/79 98 05/15/23 07:47 65 16 146/79 97 05/15/23 06:03 68 18 146/79 96 05/15/23 03:00 62 18 122/72 96 03/02/24 01:10 61 18 142/74 97 05/14/23 23:59 67 18 148/88 97 05/14/23 22:01 98.5 F 87 18 124/67 98 Intake and Output 05/14/23 05/15/23 05/15/23 22:59 06:59 14:59 Other: Weight 80.739 kg General: Appears in no acute distress. HEAD: Normal with no signs of head trauma. EYES: PERRLA, EOMI, conjunctiva normal, no discharge. ENT: Hearing grossly intact, normal oropharynx. RESPIRATORY: Clear breath sounds bilaterally. No wheezes, rales, or rhonchi. C/V: Regular rate and rhythm. S1 and S2 auscultated, no edema, peripheral pulses 2+ and intact throughout. Chest pain not reproducible on palpation. ABD: Abd is soft, nontender, nondistended EXT: Normal range of motion, no obvious deformity SKIN: No rashes or lesions observed on exposed skin. NEURO: Alert and oriented x 4. Results CBC & Chem 7: 05/14/23 22:13 05/14/23 22:13 Labs: Abnormal Lab Results - Last 24 Hours (Table) 05/14/23 05/14/23 Range/Units 22:13 22:13 WBC 13.5 H (3.8-10.6) k/uL Neutrophils # 11.4 H (1.3-7.7) k/uL Sodium 136 L (137-145) mmol/L BUN 37 H (7-17) mg/dL Creatinine 1.23 H (0.52-1.04) mg/dL Glucose 129 H (74-99) mg/dL Assessment and Plan Assessment: 1. Chest pain; acute coronary syndrome has been ruled out -Patient has been admitted to telemetry; monitor EKG; troponin remains normal at less than 0.012 -- Cardiology is consulted; recommending Cardiolite stress test and 2D echo 2. Acute renal injury; we will start patient on slow IV fluid hydration with normal saline at a rate of 75 cc an hour; monitor strict GHISLAINE's, daily weights, renal function electrolytes; avoid nephrotoxins and hypotension 3. Uncontrolled hypertension; Norvasc has been increased to 10 mg daily; losartan 100 mg daily; continue home dose of clonidine 0.1 mg p.o. 3 times daily as needed 4. Peripheral neuropathy; Neurontin 300 mg daily 5. DJD; patient remains on home dose of [place] 6. Gastroesophageal reflux disease; PPI DVT prophylaxis; SCDs/subcu heparin CODE STATUS; full code
[2023-05-15] MEDS: SODIUM CHLORIDE 0.45% 1,000 ML IV SCH (22:30)
[2023-05-16 08:14] LABS: Basophils # (A) 0.1 k/uL (0-0.2); Basophils % (A) 1 %; Eosinophils # (A) 0.4 k/uL (0-0.7); Eosinophils % (A) 5 %; HGB 13.5 gm/dL (11.4-16.0); Lymphocytes # (A) 2.8 k/uL (1.0-4.8); Lymphocytes % (A) 30 %; MCH 30.6 pg (25.0-35.0); MCHC 32.9 g/dL (31.0-37.0); MCV 92.9 fL (80.0-100.0); Mean Platelet Volume 7.1; Monocytes # (A) 0.4 k/uL (0-1.0); Monocytes % (A) 5 %; Neutrophils # (A) 5.4 k/uL (1.3-7.7); Neutrophils % (A) 58 %; Platelet Count 285 k/uL (150-450); RBC 4.41 m/uL (3.80-5.40); RDW 13.2 % (11.5-15.5); WBC 9.3 k/uL (3.8-10.6)
[2023-05-16] MEDS: LOSARTAN 50 MG TAB PO SCH (08:15)
[2023-05-16] MEDS: GABAPENTIN 300 MG CAP PO SCH (08:16)
[2023-05-16] MEDS: CYANOCOBALAMIN 500 MCG TAB PO SCH (08:16)
[2023-05-16] MEDS: ASCORBIC ACID 500 MG TAB PO SCH (08:17)
[2023-05-16 08:26] LABS: African American GFR (CKD) 87 (>60 ml/min/1.73 sqM); Anion Gap 9 mmol/L; Blood Urea Nitrogen 24 mg/dL (7-17); Calcium 9.4 mg/dL (8.4-10.2); Carbon Dioxide 25 mmol/L (22-30); Chloride 107 mmol/L (98-107); Glucose 87 mg/dL (74-99); Non-African American GFR(CKD) 76 (>60 ml/min/1.73 sqM); Potassium 4.3 mmol/L (3.5-5.1); Sodium 141 mmol/L (137-145)
[2023-05-16] MEDS: CHOLECALCIFEROL 25 MCG (1000 IU) TABLET PO SCH (08:29)
[2023-05-16] MEDS ORDERED: amLODIPine 5 MG TAB PO SCH (09:00)
--- NOTE | 2023-05-16 17:27 | P.PN ---
Subjective Progress Note Date: 05/16/23 82-year-old female presented ER via EMS with chief complaint chest pain. Patient states this started about 8 PM. (Mandy Kelly) Patient is an 82-year-old female who presents emergency department for chest pain. Received 324 mg of aspirin as well as nitro for the pain. States it is in the center of her chest with occasional radiation of the left shoulder. 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 Denies any cardiac history in the past. States this has happened previously though having the chest pain. Started at approximately 8 PM. Is improved at this time. Unknown if the nitro on the way here improved it. Presents for further evaluation. Describes the pain as sharp, achy EKG and that showed sinus mechanism with T wave inversion inferiorly similar to an EKG was performed in 2018 but different from an EKG was performed in 2022. Blood work completed in ED reveals a WBC of 13.5, hemoglobin of 13 and platelet count of 78, sodium 136, potassium 4.5, BUNs/creatinine of 37/1.23, blood glucose of 129, troponin less than 0.012 Chest x-ray reveals mild bibasilar opacities, atelectasis versus pneumonia --Patient has been evaluated by cardiology and is recommended Lexiscan stress test which is scheduled for tomorrow -- Patient remains chest pain-free -- Amlodipine is increased to improve blood pressure control Objective - Vital Signs Vital signs: Vital Signs Temp 98.7 F 05/16/23 14:15 Pulse 72 05/16/23 14:15 Resp 16 05/16/23 14:15 BP 139/75 05/16/23 14:15 Pulse Ox 96 05/16/23 14:15 FiO2 Intake & Output 05/15/23 05/16/23 05/16/23 18:59 06:59 18:59 Other: Voiding Method Toilet # Voids 3 # Bowel Movements 0 - Exam General: Appears in no acute distress. HEAD: Normal with no signs of head trauma. EYES: PERRLA, EOMI, conjunctiva normal, no discharge. ENT: Hearing grossly intact, normal oropharynx. RESPIRATORY: Clear breath sounds bilaterally. No wheezes, rales, or rhonchi. C/V: Regular rate and rhythm. S1 and S2 auscultated, no edema, peripheral pulses 2+ and intact throughout. Chest pain not reproducible on palpation. ABD: Abd is soft, nontender, nondistended EXT: Normal range of motion, no obvious deformity SKIN: No rashes or lesions observed on exposed skin. NEURO: Alert and oriented x 4. - Labs CBC & Chem 7: 05/16/23 07:49 05/16/23 07:49 Labs: Abnormal Lab Results - Last 24 Hours (Table) 05/16/23 Range/Units 07:49 BUN 24 H (7-17) mg/dL Assessment and Plan Assessment: 1. Chest pain; acute coronary syndrome has been ruled out -Patient has been admitted to telemetry; monitor EKG; troponin remains normal at less than 0.012 -- Cardiology is consulted; recommending Cardiolite stress test and 2D echo 2. Acute renal injury; we will start patient on slow IV fluid hydration with normal saline at a rate of 75 cc an hour; monitor strict GHISLAINE's, daily weights, renal function electrolytes; avoid nephrotoxins and hypotension 3. Uncontrolled hypertension; Norvasc has been increased to 10 mg daily; losartan 100 mg daily; continue home dose of clonidine 0.1 mg p.o. 3 times daily as needed 4. Peripheral neuropathy; Neurontin 300 mg daily 5. DJD; patient remains on home dose of Cade 6. Gastroesophageal reflux disease; PPI DVT prophylaxis; SCDs/subcu heparin CODE STATUS; full code
--- NOTE | 2023-05-16 18:11 | P.PN ---
Subjective Progress Note Date: 05/16/23 Principal diagnosis: Chest pain The patient is a pleasant 82-year-old female patient with a past medical history significant for hypertension presented to the hospital complaining of chest discomfort. She was in her usual state of health till yesterday when she was doing some home work including cooking and started experiencing discomfort in the chest. The discomfort was in the middle of the chest as a dull kind of discomfort radiated to her neck. No associated symptoms of shortness of breath or dizziness or lightheadedness or any feeling of heart racing or fluttering or any presyncope or syncope. She has no history of coronary artery disease or congestive heart failure or cardiac arrhythmia but does have hypertension and she is overweight. She underwent further workup including an EKG and that showed sinus mechanism with T wave inversion inferiorly similar to an EKG was performed in 2018 but different from an EKG was performed in 2022. Beside that her cardiac enzymes came in to be unremarkable. The chest x-ray did not show any acute abnormalities. The rest of the blood work came in to be unremarkable with currently she is chest pain-free. She was seen by our service in 2022 with chest discomfort and at that point she underwent an echo which revealed normal LV systolic function with no significant valvular abnormalities. She had a stress test which was dobutamine stress echocardiogram in 2018 came in to be unremarkable. The pressure has been elevated and consistent with a stage II hypertension in spite of being compliant with her medications. The examination revealed regular rhythm with a distant heart sounds and clear breathing sounds bilaterally and soft nontender abdomen and no bilateral lower extremities edema May 16, 2023 The patient was seen and evaluated this afternoon. Currently she states she is chest pain-free. The pressure appears to be under reasonable control on the current medical regimen. No shortness of breath and no dizziness or lightheadedness and no feeling of heart racing or fluttering. She is scheduled to undergo a stress test tomorrow morning. Will follow-up with that. The physical examination is remarkable for regular rhythm with a distant heart sounds and clear breathing sounds bilaterally and no lower extremities edema noted Assessment Chest discomfort Hypertension Overweight Plan Acute coronary syndrome was ruled out Obtain Lexiscan Cardiolite Follow-up with the patient Objective - Vital Signs Vital signs: Vital Signs Temp 98.7 F 05/16/23 14:15 Pulse 72 05/16/23 14:15 Resp 16 05/16/23 14:15 BP 139/75 05/16/23 14:15 Pulse Ox 96 05/16/23 14:15 FiO2 Intake & Output 05/15/23 05/16/23 05/16/23 18:59 06:59 18:59 Other: Voiding Method Toilet # Voids 3 # Bowel Movements 0 - Labs CBC & Chem 7: 05/16/23 07:49 05/16/23 07:49 Labs: Abnormal Lab Results - Last 24 Hours (Table) 05/16/23 Range/Units 07:49 BUN 24 H (7-17) mg/dL
--- NOTE | 2023-05-16 19:55 | CA ---
Transthoracic Echo Report Name: Celine Aaron Age: 82 Gender: F : 1940 Exam Date: 05/15/2023 16:59 Exam Location: [facility] Ht (in): 60 Wt (lb): 178 Ordering Physician: Filemon Brody MD ([id number]) Attending/Referring Phys: African Studies Professor Faraz Baron RDCS Procedure CPT: Indications: Chest Pain Cardiac Hx: Technical Quality: Contrast 1: Definity Total Dose (mL): 2 Contrast 2: Total Dose (mL): MEASUREMENTS (Male / Female) Normal Values 2D ECHO LV Diastolic Diameter PLAX 5.4 cm 4.2 - 5.9 / 3.9 - 5.3 cm LV Systolic Diameter PLAX 3.7 cm IVS Diastolic Thickness 1.4 cm 0.6 - 1.0 / 0.6 - 0.9 cm LVPW Diastolic Thickness 1.4 cm 0.6 - 1.0 / 0.6 - 0.9 cm LV Relative Wall Thickness 0.5 LVOT Diameter 2.4 cm Aortic Root Diameter 3.3 cm LA Systolic Diameter LX 3.3 cm 3.0 - 4.0 / 2.7 - 3.8 cm DOPPLER AV Peak Velocity 109.4 cm/s AV Peak Gradient 4.8 mmHg AV Mean Velocity 78.7 cm/s AV Mean Gradient 2.7 mmHg AV Velocity Time Integral 25.0 cm LVOT Peak Velocity 96.7 cm/s LVOT Peak Gradient 3.7 mmHg LVOT Velocity Time Integral 23.1 cm LVOT Stroke Volume 105.9 cm??? LVOT Stroke Volume Index 59.6 ml/m??? LVOT Cardiac Index 3421.6 cm???/min???m??? AV Area Cont Eq vti 4.2 cm??? AV Area Cont Eq pk 4.0 cm??? Mitral E Point Velocity 85.8 cm/s Mitral A Point Velocity 103.5 cm/s Mitral E to A Ratio 0.8 MV Deceleration Time 267.8 ms MV E' Velocity 7.1 cm/s Mitral E to MV E' Ratio 12.1 TR Peak Velocity 247.0 cm/s TR Peak Gradient 24.4 mmHg PV Peak Velocity 70.0 cm/s PV Peak Gradient 2.0 mmHg FINDINGS Left Ventricle Moderately increased septal wall thickness. Moderately increased posterior wall thickness. Mildly increased left ventricular diastolic diameter. Left ventricular ejection fraction is estimated at 55-60 %. Right Ventricle Normal right ventricular size. Right Atrium Normal right atrial size. Left Atrium Normal left atrial size. Mitral Valve Trace mitral regurgitation. Aortic Valve Trace aortic regurgitation. Tricuspid Valve Mild tricuspid regurgitation. Pulmonic Valve Pulmonic valve not well visualized. Pericardium No pericardial effusion. Aorta Normal size aortic root. CONCLUSIONS Previous echo recorded on 05/19/2022. Technically difficult study for interpretation Normal LV systolic function Previewed by: Dr. Filemon Brody MD (Electronically Signed) Final Date: 16 May 2023 19:54
[2023-05-17] MEDS ORDERED: REGADENOSON 0.4 MG/5 ML SYRINGE IV PRN (07:00)
[2023-05-17] MEDS ORDERED: REGADENOSON 0.4 MG/5 ML SYRINGE IV ONE (08:00)
[2023-05-17 08:50] LABS: BUN/Creat Ratio 21.88 Ratio (12.00-20.00); Blood Urea Nitrogen 17.5 mg/dL (9.0-27.0); Calcium 9.3 mg/dL (8.7-10.3); Carbon Dioxide 26.1 mmol/L (21.6-31.8); Chloride 104 mmol/L (96-109); Glucose 85 mg/dL (70-110); Potassium 4.4 mmol/L (3.5-5.5); Sodium 144 mmol/L (135-145)
[2023-05-17 09:08] VITALS: RESP 16
--- NOTE | 2023-05-17 10:43 | P.PN ---
Subjective Progress Note Date: 05/17/23 Principal diagnosis: Chest pain The patient is a pleasant 82-year-old female patient with a past medical history significant for hypertension presented to the hospital complaining of chest discomfort. She was in her usual state of health till yesterday when she was doing some home work including cooking and started experiencing discomfort in the chest. The discomfort was in the middle of the chest as a dull kind of discomfort radiated to her neck. No associated symptoms of shortness of breath or dizziness or lightheadedness or any feeling of heart racing or fluttering or any presyncope or syncope. She has no history of coronary artery disease or congestive heart failure or cardiac arrhythmia but does have hypertension and she is overweight. She underwent further workup including an EKG and that showed sinus mechanism with T wave inversion inferiorly similar to an EKG was performed in 2018 but different from an EKG was performed in 2022. Beside that her cardiac enzymes came in to be unremarkable. The chest x-ray did not show any acute abnormalities. The rest of the blood work came in to be unremarkable with currently she is chest pain-free. She was seen by our service in 2022 with chest discomfort and at that point she underwent an echo which revealed normal LV systolic function with no significant valvular abnormalities. She had a stress test which was dobutamine stress echocardiogram in 2018 came in to be unremarkable. The pressure has been elevated and consistent with a stage II hypertension in spite of being compliant with her medications. The examination revealed regular rhythm with a distant heart sounds and clear breathing sounds bilaterally and soft nontender abdomen and no bilateral lower extremities edema May 16, 2023 The patient was seen and evaluated this afternoon. Currently she states she is chest pain-free. The pressure appears to be under reasonable control on the current medical regimen. No shortness of breath and no dizziness or lightheadedness and no feeling of heart racing or fluttering. She is scheduled to undergo a stress test tomorrow morning. Will follow-up with that. The physical examination is remarkable for regular rhythm with a distant heart sounds and clear breathing sounds bilaterally and no lower extremities edema noted 3/4 Patient is scheduled for Lexiscan stress test today. Blood pressure 129/86, heart rate 79, pulse ox 94% on room air. Repeat blood work reveals sodium 144, potassium 4.4, creatinine 0.8. Echocardiogram reveals EF 55 to 60%. Technically difficult study for interpretation. The physical examination is remarkable for regular rhythm with a distant heart sounds and clear breathing sounds bilaterally and no lower extremities edema noted Assessment Chest discomfort Hypertension Overweight Plan Acute coronary syndrome was ruled out Obtain Lexiscan Cardiolite today If Lexiscan stress test is unremarkable, patient is cleared for discharge and may follow-up in 1 to 2 weeks in the office. Nurse practitioner note has been reviewed, I agree with documented findings and plan of care. Patient was seen and examined. Objective - Vital Signs Vital signs: Vital Signs Temp 98.9 F 05/17/23 07:00 Pulse 79 05/17/23 07:00 Resp 16 05/17/23 07:00 BP 129/86 05/17/23 07:00 Pulse Ox 94 L 05/17/23 07:00 FiO2 Intake & Output 05/16/23 05/17/23 05/17/23 18:59 06:59 18:59 Other: Voiding Method Toilet # Voids 3 2 # Bowel Movements 0 - Labs CBC & Chem 7: 05/16/23 07:49 05/17/23 04:08 Labs: Abnormal Lab Results - Last 24 Hours (Table) 05/17/23 Range/Units 04:08 Anion Gap 13.90 H (4.00-12.00) mmol/L BUN/Creatinine Ratio 21.88 H (12.00-20.00) Ratio
--- NOTE | 2023-05-17 11:00 | CA ---
Lexiscan Nuclear Stress Test Report Name: Celine Aaron Exam Date: 05/17/2023 10:11 Exam Location: [facility] Ht (in): 60 Wt (lb): 178 BSA: 1.78 Ordering Phys: Filemon Brody MD Referring Phys: JUDY Technologist: ANICETO Age: 82 Gender: F : 1940 Procedure CPT: Indications: Reflex order-Stress test ICD-10 Codes: Patient History: Chest pain and shortness of breath Medications: Meds past 24 hrs: Pretest Chest Pain: STRESS TEST Lexiscan Protocol Exercise Duration (min:sec): 01:[address] Depressions (mm): Angina Score: Edwards Score: Resting HR (bpm): 69 Peak HR (bpm): 123 Resting BP (mmHg): 152 / 82 Peak BP (mmHg): 168 / 86 MPHR: 140 Target HR: 119 % MPHR: 88 METS: 1.0 Total Dose: Peak Dose: Atropine: Double Product: 44997 BP Response: Stress Termination: Infusion complete Stress Symptoms: Nausea and short of breath Stress Summary: ECG ANALYSIS Resting ECG: Normal sinus rhythm with nonspecific ST-T wave changes Stress ECG: Patient was given intravenous Lexiscan as a protocol did not have chest pain and the EKG has worsened compared to the baseline EKG CONCLUSIONS Inconclusive EKG part of the stress test due to baseline EKG abnormalities Cardiolite portion of the stress test will be reported separately Dr. Ace Hightower MD (Electronically Signed) Final Date: 17 May 2023 10:59
--- NOTE | 2023-05-17 13:22 | NM ---
EXAMINATION TYPE: NM stress lexiscan cardiolite DATE OF EXAM: 05/17/2023 COMPARISON: 10/22/2015 CLINICAL INDICATION: Female, 82 years old with history of Chest pain; TECHNIQUE: After the intravenous administration of 10.1 mCi Tc 99m Sestamibi - Cardiolite resting SP ECT images acquired 45 minutes post injection. The patient received 0.4mg Lexiscan, 25.0 mCi Tc 99m Sestamibi - Stress images obtained [address] injection FINDINGS: Review of stress and rest SPECT images demonstrates no distinct perfusion abnormality. The previous lateral wall defect is no longer identified. Gated analysis shows normal wall motion with an estimate d left ventricular ejection fraction of 64 %. TID is calculated at 0.89, within normal limits. IMPRESSION: No scintigraphic evidence for reversible ischemia. The previous lateral wall defect seen in 2015 is n o longer identified.
[2023-05-17 14:53] VITALS: BP 117/72; PULSE 73; TEMP 97.4
--- NOTE | 2023-05-18 06:39 | P.DS ---
Providers Date of admission: 05/15/23 01:06 Expected date of discharge: 05/17/23 Attending physician: Bryanna Lan Consults: 05/15/23 01:05 Consult Physician Routine Consulting Provider: [facility] Consult Reason/Comments: chest pain Do you want consulting provider notified?: Yes Primary care physician: Racquel Mxi Hospital Course: Final diagnosis 1. Chest pain; acute coronary syndrome has been ruled out, stress test was negative 2. Acute renal injury, improving 3. Uncontrolled hypertension 4. Peripheral neuropathy 5. DJD history 6. Gastroesophageal reflux disease GI prophylaxis DVT prophylaxis Full code Discharge disposition Patient is being discharged in a stable condition with guarded prognosis to home. Patient will follow-up with Dr. Mix in the outpatient setting upon discharge. Patient is to continue with current medications and outpatient follow up with cardiology as scheduled. Total time taken is greater than 35 minutes. Hospital course This is a 82-year-old female who was recently admitted with chest pain and being monitored by cardiology and underwent stress test which was negative. Patient has been cleared by cardiology for discharge home today and outpatient follow up. Please refer to consultation notes for further HPI. Currently no reports of chest pain, shortness of breath, or palpitations. Patient is afebrile. No reports of nausea or vomiting and patient is tolerating diet. Patient will be discharged home today. Guarded prognosis Physical exam: Gen: This is a 82-year-old female who is awake, alert and oriented x 3, well- developed, well-nourished, obese HEENT: Head is atraumatic, normocephalic. Pupils equal, round. Sclerae is anicteric. NECK: Supple. No JVD. No lymphadenopathy. No thyromegaly. LUNGS: Diminished breath sounds bilaterally otherwise clear to auscultation. No wheezes or rhonchi. No intercostal retractions. HEART: S1, S2 muffled ABDOMEN: Soft. Obese. Bowel sounds are present. No masses. No tenderness. EXTREMITIES: No pedal edema. No calf tenderness. NEUROLOGICAL: Patient is awake, alert and oriented x3. Cranial nerves 2 through 12 are grossly intact. Please refer to medication reconciliation sheet for a list of medications. The impression and plan of care has been dictated by Dorcas Zheng, Nurse Practitioner as directed. Dr. Riky MD I have performed a history and examination and MDM of this patient, discussed the same with the dictator, and agree with the dictator's assessment and plan as written ,documented as a scribe. Based on total visit time, I have performed more than 50% of the visit. Patient Condition at Discharge: Stable Plan - Discharge Summary Discharge Rx Participant: No New Discharge Prescriptions: New Nitroglycerin Sl Tabs [Nitrostat] 0.4 mg SUBLINGUAL Q5M PRN #20 tab PRN Reason: Chest Pain amLODIPine [Norvasc] 10 mg PO DAILY #30 tab Continue Losartan Potassium [Cozaar] 100 mg PO DAILY HYDROcodone/APAP 10-325MG [[place] 10-325] 1 tab PO TID PRN PRN Reason: Pain Cyanocobalamin [Vitamin B-12] 500 mcg PO DAILY Acetaminophen Tab [Tylenol] 500 mg PO Q6H PRN PRN Reason: Pain Or Fever > 100.5 cloNIDine HCL 0.1 mg PO TID PRN PRN Reason: high bp Ascorbic Acid [Vitamin C] 1,000 mg PO DAILY Naproxen Sodium [Aleve] 220 mg PO BID PRN PRN Reason: Pain Cholecalciferol [Vitamin D3 (25 Mcg = 1000 Iu)] 25 mcg PO DAILY Gabapentin [Neurontin] 300 mg PO DAILY Discontinued amLODIPine [Norvasc] 5 mg PO DAILY Discharge Medication List HYDROcodone/APAP 10-325MG [[place] 10-325] 1 tab PO TID PRN 05/19/22 [History] Losartan Potassium [Cozaar] 100 mg PO DAILY 05/19/22 [History] Acetaminophen Tab [Tylenol] 500 mg PO Q6H PRN 05/15/23 [History] Ascorbic Acid [Vitamin C] 1,000 mg PO DAILY 05/15/23 [History] Cholecalciferol [Vitamin D3 (25 Mcg = 1000 Iu)] 25 mcg PO DAILY 05/15/23 [History] Cyanocobalamin [Vitamin B-12] 500 mcg PO DAILY 05/15/23 [History] Gabapentin [Neurontin] 300 mg PO DAILY 05/15/23 [History] Naproxen Sodium [Aleve] 220 mg PO BID PRN 05/15/23 [History] cloNIDine HCL 0.1 mg PO TID PRN 05/15/23 [History] Nitroglycerin Sl Tabs [Nitrostat] 0.4 mg SUBLINGUAL Q5M PRN #20 tab 05/17/23 [Rx] amLODIPine [Norvasc] 10 mg PO DAILY #30 tab 05/17/23 [Rx] Follow up Appointment(s)/Referral(s): Filemon Brody MD [STAFF PHYSICIAN] - 1 Week (Office will call with appointment time and date.) Racquel Mix DO [Primary Care Provider] - 1-2 days Patient Instructions/Handouts: Chest Pain (DC) Activity/Diet/Wound Care/Special Instructions: Activity limited until follow-up Follow-up with primary care provider on discharge Follow-up with cardiology outpatient Continue taking medications as prescribed Discharge Disposition: HOME SELF-CARE
== END 2023-05-17 15:39 | disposition home or self-care (01) ==
LOC: EC 21:49 → 6NMEDSUR 05-15 01:06
PROVIDERS: ADMIT Hospitalist; ATTEND Hospitalist
DX: R07.89 Other chest pain (principal); K21.9 Gastro-esophageal reflux disease without esophagitis; I10 Essential (primary) hypertension; F41.9 Anxiety disorder, unspecified; N17.9 Acute kidney failure, unspecified; G62.9 Polyneuropathy, unspecified; E66.9 Obesity, unspecified; M19.032 Primary osteoarthritis, left wrist; Z87.01 Personal history of pneumonia (recurrent); Z79.899 Other long term (current) drug therapy
CPT/HCPCS: 96361 ×3; 96365; 96372 ×2; 99285; 36415; 93005; 93017; 80053; 80048 ×2; 83735; 84484 ×2; 85025 ×2; 85610; 85730; 84145; 71046; 78452; G0378 ×3; C8929; A9500; J1644 ×3; Q9957; J2785; J1885; 93306

== ENCOUNTER 2023-08-29 09:14 | Observation (INO) | payer MEDICARE ==
--- NOTE | 2023-08-29 09:46 | ED ---
General Adult HPI - General Chief complaint: Chest Pain Stated complaint: Chest Pain Time Seen by Provider: 08/29/23 09:20 Source: patient, RN notes reviewed, old records reviewed Mode of arrival: ambulatory Limitations: no limitations - History of Present Illness Initial comments: This is an 82-year-old female who presents to the emergency department stating that she had significant chest pain on Wednesday night. Patient states that it lasted for 5 to 10 minutes and went away she said it was quite significant and radiated across her chest. Patient states it felt like there was a vice squeezing her chest. Patient states she was also short of breath at that time. Patient states yesterday she did not feel back to her baseline but she did not have any significant chest pain. Patient states this morning she woke up and started having that left-sided chest pain again and shortness of breath so she decided to come to the emergency department. Patient is any fever or chills. Patient denies any abdominal pain patient has nausea vomiting. Patient states she does have a history of high blood pressure and recently had a stress test that was normal. - Related Data Home Medications Medication Instructions Recorded Confirmed HYDROcodone/APAP 10-325MG [[place] 1 tab PO TID PRN 05/19/22 05/15/23 10-325] Losartan Potassium [Cozaar] 100 mg PO DAILY 05/19/22 05/15/23 Acetaminophen Tab [Tylenol] 500 mg PO Q6H PRN 05/15/23 05/15/23 Ascorbic Acid [Vitamin C] 1,000 mg PO DAILY 05/15/23 05/15/23 Cholecalciferol [Vitamin D3 (25 25 mcg PO DAILY 05/15/23 05/15/23 Mcg = 1000 Iu)] Cyanocobalamin [Vitamin B-12] 500 mcg PO DAILY 05/15/23 05/15/23 Gabapentin [Neurontin] 300 mg PO DAILY 05/15/23 05/15/23 Naproxen Sodium [Aleve] 220 mg PO BID PRN 05/15/23 05/15/23 cloNIDine HCL 0.1 mg PO TID PRN 05/15/23 05/15/23 Previous Rx's Medication Instructions Recorded Nitroglycerin Sl Tabs [Nitrostat] 0.4 mg SUBLINGUAL Q5M PRN #20 tab 05/17/23 amLODIPine [Norvasc] 10 mg PO DAILY #30 tab 05/17/23 Allergies Allergy/AdvReac Type Severity Reaction Status Date / Time No Known Allergies Allergy Verified 08/29/23 09:18 Review of Systems ROS Statement: Those systems with pertinent positive or pertinent negative responses have been documented in the HPI. ROS Other: All systems not noted in ROS Statement are negative. Past Medical History Past Medical History: Chest Pain / Angina, GERD/Reflux, Hypertension, Pneumonia Additional Past Medical History / Comment(s): left ankle pain, DIVERTICULAR DISEASE,ARTHRITIS, Vertigo History of Any Multi-Drug Resistant Organisms: None Reported Past Surgical History: Appendectomy, Bladder Surgery, Heart Catheterization, Hysterectomy Additional Past Surgical History / Comment(s): BOWEL RESECTION, UMB HERNIA REPAIR, MILLER CATARACTS,COLONOSCOPY Past Anesthesia/Blood Transfusion Reactions: Motion Sickness Past Psychological History: Anxiety Smoking Status: Never smoker Past Alcohol Use History: None Reported Past Drug Use History: None Reported - Past Family History Mother Family Medical History: CVA/TIA, Dementia, Hypertension, Seizure Disorder Additional Family Medical History / Comment(s): AT AGE 83 Father Family Medical History: Diabetes Mellitus, Hypertension Additional Family Medical History / Comment(s): HERNIA General Exam - General Exam Comments Initial Comments: GENERAL: Patient is well-developed and well-nourished. Patient is nontoxic and well- hydrated and is in mild distress. ENT: Neck is soft and supple. No significant lymphadenopathy is noted. Oropharynx is clear. Moist mucous membranes. Neck has full range of motion without eliciting any pain. EYES: The sclera were anicteric and conjunctiva were pink and moist. Extraocular movements were intact and pupils were equal round and reactive to light. Eyelids were unremarkable. PULMONARY: Unlabored respirations. Good breath sounds bilaterally. No audible rales rhonchi or wheezing was noted. CARDIOVASCULAR: There is a regular rate and rhythm without any murmurs gallops or rubs. ABDOMEN: Soft and nontender with normal bowel sounds. SKIN: Skin is clear with no lesions or rashes and otherwise unremarkable. NEUROLOGIC: Patient is alert and oriented x3. Cranial nerves II through XII are grossly intact. Motor and sensory are also intact. Normal speech, volume and content. Symmetrical smile. MUSCULOSKELETAL: Normal extremities with adequate strength and full range of motion. LYMPHATICS: No significant lymphadenopathy is noted PSYCHIATRIC: Normal psychiatric evaluation. Limitations: no limitations Course Vital Signs 08/29/23 08/29/23 08/29/23 09:16 09:22 10:13 Temperature 98.1 F 98.6 F 98.9 F Pulse Rate 74 66 63 Respiratory 20 16 18 Rate Blood Pressure 168/111 133/86 127/68 O2 Sat by Pulse 96 95 96 Oximetry 08/29/23 11:53 Temperature 98.2 F Pulse Rate 80 Respiratory 17 Rate Blood Pressure 105/87 O2 Sat by Pulse 96 Oximetry Medical Decision Making - Medical Decision Making EKG is interpreted by myself but EKG shows a sinus rhythm at 76 bpm parables 169 QRS 75 QT interval is 369 QTc is 399. Patient's EKG shows T wave inversions in leads I to III and aVF as well as precordial leads Was pt. sent in by a medical professional or institution (JOANNE Bocanegra, ADHESIVE BANDAGE MAKING OPERATOR, urgent care, hospital, or assisted...) When possible be specific @ -No Did you speak to anyone other than the patient for history (EMS, parent, family, police, friend...)? What history was obtained from this source @ -No Did you review nursing and triage notes (agree or disagree)? Why? @ -I reviewed and agree with nursing and triage notes Were old charts reviewed (outside hosp., previous admission, EMS record, old EKG, old radiological studies, urgent care reports/EKG's, assisted records)? Report findings @ -I compared today's lab work with prior lab work from an admission and he saw no significant change Differential Diagnosis (chest pain, altered mental status, abdominal pain women, abdominal pain men, vaginal bleeding, weakness, fever, dyspnea, syncope, headache, dizziness, GI bleed, back pain, seizure, CVA, palpatations, mental health, musculoskeletal)? @ -Differential Chest Pain: Stable Angina, Unstable Angina, STEMI, NSTEMI Aortic Dissection, Pneumothorax, Musculoskeletal, Esophageal Spasm GERD, Cholecystitis, Pancreatitis, Zoster, this is not meant to be an all-inclusive list. EKG interpreted by me (3pts min.). @ -As above X-rays interpreted by me (1pt min.). @ -Chest x-ray shows no acute normality CT interpreted by me (1pt min.). @ -None done U/S interpreted by me (1pt. min.). @ -None done What testing was considered but not performed or refused? (CT, X-rays, U/S, labs)? Why? @ -None What meds were considered but not given or refused? Why? @ -None Did you discuss the management of the patient with other professionals (professionals i.e. , PA, ADHESIVE BANDAGE MAKING OPERATOR, lab, RT, psych nurse, hospital social worker, marine service station attendant, teacher, compliance review officer, case technician)? Give summary @ -I spoke with [facility] they agreed to admit the patient to the patient wrote admitting orders Was smoking cessation discussed for >3mins.? @ -No Was critical care preformed (if so, how long)? @ -No Were there social determinants of health that impacted care today? How? (Homelessness, low income, unemployed, alcoholism, drug addiction, transportation, low edu. Level, literacy, decrease access to med. care, residential, rehab)? @ -No Was there de-escalation of care discussed even if they declined (Discuss DNR or withdrawal of care, Hospice)? DNR status @ -No What co-morbidities impacted this encounter? (DM, HTN, Smoking, COPD, CAD, Cancer, CVA, ARF, Chemo, Hep., AIDS, mental health diagnosis, sleep apnea, morbid obesity)? @ -None Was patient admitted / discharged? Hospital course, mention meds given and route, prescriptions, significant lab abnormalities, going to OR and other pertinent info. @ -Patient was given aspirin Nitropaste patient was feeling better when I reexamined her lab work came back within normal range as did the x-ray but I spoke with [facility] we will admit the patient to rule out cardiac etiology of the pain. Patient will have a cardiology consult Undiagnosed new problem with uncertain prognosis? @ -No Drug Therapy requiring intensive monitoring for toxicity (Heparin, Nitro, Insulin, Cardizem)? @ -No Were any procedures done? @ -No Diagnosis/symptom? @ -Chest pain Acute, or Chronic, or Acute on Chronic? @ -Acute Uncomplicated (without systemic symptoms) or Complicated (systemic symptoms)? @ -Default Side effects of treatment? @ -No Exacerbation, Progression, or Severe Exacerbation? @ -No Poses a threat to life or bodily function? How? (Chest pain, [place], MD, pneumonia, PE, COPD, DKA, ARF, appy, cholecystitis, CVA, Diverticulitis, Homicidal, Suicidal, threat to staff... and all critical care pts) @ -Yes this can lead to an MD and endorgan dysfunction - Lab Data Result diagrams: 08/29/23 10:00 08/29/23 10:00 Lab Results 08/29/23 08/29/23 08/29/23 Range/Units 10:00 10:00 10:00 WBC 11.2 H (3.8-10.6) k/uL RBC 4.70 (3.80-5.40) m/uL Hgb 14.0 (11.4-16.0) gm/dL Hct 43.4 (34.0-46.0) % MCV 92.2 (80.0-100.0) fL MCH 29.8 (25.0-35.0) pg MCHC 32.3 (31.0-37.0) g/dL RDW 13.0 (11.5-15.5) % Plt Count 293 (150-450) k/uL MPV 7.0 Neutrophils % 76 % Lymphocytes % 16 % Monocytes % 4 % Eosinophils % 2 % Basophils % 1 % Neutrophils # 8.6 H (1.3-7.7) k/uL Lymphocytes # 1.7 (1.0-4.8) k/uL Monocytes # 0.4 (0-1.0) k/uL Eosinophils # 0.3 (0-0.7) k/uL Basophils # 0.1 (0-0.2) k/uL PT 10.5 (10.0-12.5) sec INR 1.0 (<1.2) APTT 25.3 (22.0-30.0) sec Sodium 141 (137-145) mmol/L Potassium 4.4 (3.5-5.1) mmol/L Chloride 109 H (98-107) mmol/L Carbon Dioxide 26 (22-30) mmol/L Anion Gap 6 mmol/L BUN 25 H (7-17) mg/dL Creatinine 1.02 (0.52-1.04) mg/dL Est GFR (CKD-EPI)AfAm 60 (>60 ml/min/1.73 sqM) Est GFR (CKD-EPI)NonAf 52 (>60 ml/min/1.73 sqM) Glucose 106 H (74-99) mg/dL Calcium 9.3 (8.4-10.2) mg/dL Magnesium 1.9 (1.6-2.3) mg/dL Total Bilirubin 0.8 (0.2-1.3) mg/dL AST 25 (14-36) U/L ALT 16 (4-34) U/L Alkaline Phosphatase 102 (38-126) U/L Troponin I (0.000-0.034) ng/mL NT-Pro-B Natriuret Pep 338 pg/mL Total Protein 7.9 (6.3-8.2) g/dL Albumin 4.3 (3.5-5.0) g/dL 08/29/23 Range/Units 10:00 WBC (3.8-10.6) k/uL RBC (3.80-5.40) m/uL Hgb (11.4-16.0) gm/dL Hct (34.0-46.0) % MCV (80.0-100.0) fL MCH (25.0-35.0) pg MCHC (31.0-37.0) g/dL RDW (11.5-15.5) % Plt Count (150-450) k/uL MPV Neutrophils % % Lymphocytes % % Monocytes % % Eosinophils % % Basophils % % Neutrophils # (1.3-7.7) k/uL Lymphocytes # (1.0-4.8) k/uL Monocytes # (0-1.0) k/uL Eosinophils # (0-0.7) k/uL Basophils # (0-0.2) k/uL PT (10.0-12.5) sec INR (<1.2) APTT (22.0-30.0) sec Sodium (137-145) mmol/L Potassium (3.5-5.1) mmol/L Chloride (98-107) mmol/L Carbon Dioxide (22-30) mmol/L Anion Gap mmol/L BUN (7-17) mg/dL Creatinine (0.52-1.04) mg/dL Est GFR (CKD-EPI)AfAm (>60 ml/min/1.73 sqM) Est GFR (CKD-EPI)NonAf (>60 ml/min/1.73 sqM) Glucose (74-99) mg/dL Calcium (8.4-10.2) mg/dL Magnesium (1.6-2.3) mg/dL Total Bilirubin (0.2-1.3) mg/dL AST (14-36) U/L ALT (4-34) U/L Alkaline Phosphatase (38-126) U/L Troponin I <0.012 (0.000-0.034) ng/mL NT-Pro-B Natriuret Pep pg/mL Total Protein (6.3-8.2) g/dL Albumin (3.5-5.0) g/dL Disposition Clinical Impression: Chest pain Disposition: ADMITTED IP TO THIS HOSP Referrals: Racquel Aggarwal DO [Primary Care Provider] - 1-2 days Time of Disposition: 13:04
[2023-08-29 10:11] LABS: Basophils # (A) 0.1 k/uL (0-0.2); Basophils % (A) 1 %; Eosinophils # (A) 0.3 k/uL (0-0.7); Eosinophils % (A) 2 %; HCT 43.4 % (34.0-46.0); Lymphocytes # (A) 1.7 k/uL (1.0-4.8); Lymphocytes % (A) 16 %; MCH 29.8 pg (25.0-35.0); MCHC 32.3 g/dL (31.0-37.0); MCV 92.2 fL (80.0-100.0); Monocytes # (A) 0.4 k/uL (0-1.0); Monocytes % (A) 4 %; Neutrophils # (A) 8.6 k/uL (1.3-7.7); Neutrophils % (A) 76 %; Platelet Count 293 k/uL (150-450); WBC 11.2 k/uL (3.8-10.6)
[2023-08-29] MEDS: ASPIRIN 81 MG PO STA (10:16)
[2023-08-29] MEDS: NITROGLYCERIN OINT 1 INCH/GM PACKET TOPICAL STA (10:17)
[2023-08-29 10:29] LABS: Partial Thromboplastin Time 25.3 sec (22.0-30.0); Prothrombin Time 10.5 sec (10.0-12.5)
[2023-08-29 10:32] LABS: ALT 16 U/L (4-34); AST 25 U/L (14-36); African American GFR (CKD) 60 (>60 ml/min/1.73 sqM); Albumin 4.3 g/dL (3.5-5.0); Alkaline Phosphatase 102 U/L (38-126); Anion Gap 6 mmol/L; Blood Urea Nitrogen 25 mg/dL (7-17); Calcium 9.3 mg/dL (8.4-10.2); Carbon Dioxide 26 mmol/L (22-30); Chloride 109 mmol/L (98-107); Glucose 106 mg/dL (74-99); Magnesium 1.9 mg/dL (1.6-2.3); Non-African American GFR(CKD) 52 (>60 ml/min/1.73 sqM); Potassium 4.4 mmol/L (3.5-5.1); Sodium 141 mmol/L (137-145); Total Bilirubin 0.8 mg/dL (0.2-1.3); Total Protein 7.9 g/dL (6.3-8.2)
[2023-08-29 10:40] LABS: NT-Pro-B-Type Natriuretic Pept 338 pg/mL
--- NOTE | 2023-08-29 11:22 | XR ---
EXAMINATION TYPE: XR chest 2V DATE OF EXAM: 08/29/2023 10:41 AM CLINICAL INDICATION:Female, 82 years old with history of Chest Pain; COMPARISON: Chest radiographs from 05/14/2023 TECHNIQUE: XR chest 2V Frontal and lateral views of the chest. FINDINGS: Lungs/Pleura: There is no evidence of pleural effusion, focal consolidation, or pneumothorax. Pulmonary vascularity: Unremarkable. Heart/mediastinum: Cardiomediastinal silhouette is unremarkable. Musculoskeletal: No acute osseous pathology. Large osteophytes project over the spine on lateral view IMPRESSION: No acute cardiopulmonary disease/process.
[2023-08-29] MEDS ORDERED: NITROGLYCERIN SL TABS 0.4 MG TAB SUBLINGUAL PRN (13:04)
--- NOTE | 2023-08-29 13:23 | P.HPIM ---
History of Present Illness H&P Date: 08/29/23 History of present illness; patient is a 82-year-old lady with past medical history significant for hypertension who presented to ER because of chest pain. Patient stated that she was all right when on Wednesday she started noticing that she was having right-sided chest pain which was squeezing in nature, intense, radiating across the chest, no aggravating or alleviating factor associated chest pain. Patient did feel short of breath at the time. Patient stated that the chest pain lasted a few minutes and after that it eased up. Patient was all right yesterday but still did not feel normal. This morning patient again had chest pain but this time was left-sided, pressure-like, nonradiating and no aggravating or relieving associated with this pain either. There was no complaint of nausea, vomiting, pain. No complaint of lightheadedness dizziness. Patient denies any swelling of feet. There is no complaint orthopnea or PND. Because of chest pain, patient came to the ER Initial lab work done in the ER showed BBC 11.2, hemoglobin 14, platelet count 293, sodium 141, potassium 4.4, BUN 25, creatinine 1.02, glucose 106, calcium 9.3, bilirubin 0.8, AST 25, ALT 16, troponin 0.012, proBNP 338, EKG done in the ER showed heart rate of 76 , no ST segment elevation or depression seen, no T-wave inversions seen. Chest x-ray done in the ER showed no acute cardiopulmonary process Patient admitted to internal medicine service REVIEW OF SYSTEMS: CONSTITUTIONAL: No fever, no malaise, no fatigue. HEENT: No recent visual problems or hearing problems. Denied any sore throat. CARDIOVASCULAR: As mentioned HPI PULMONARY: As mentioned in HPI GASTROINTESTINAL: No diarrhea, no nausea, no vomiting, no abdominal pain. NEUROLOGICAL: No headaches, no weakness, no numbness. HEMATOLOGICAL: Denies any bleeding or petechiae. GENITOURINARY: Denies any burning micturition, frequency, or urgency. MUSCULOSKELETAL/RHEUMATOLOGICAL: Denies any joint pain, swelling, or any muscle pain. ENDOCRINE: Denies any polyuria or polydipsia. The rest of the 14-point review of systems is negative. PHYSICAL EXAMINATION: GENERAL: The patient is alert and oriented x3, not in any acute distress. Well d eveloped, well nourished. HEENT: Pupils are round and equally reacting to light. EOMI. No scleral icterus. No conjunctival pallor. Normocephalic, atraumatic. No pharyngeal erythema. No thyromegaly. CARDIOVASCULAR: S1 and S2 present. No murmurs, rubs, or gallops. PULMONARY: Chest is clear to auscultation, no wheezing or crackles. ABDOMEN: Soft, nontender, nondistended, normoactive bowel sounds. No palpable organomegaly. MUSCULOSKELETAL: No joint swelling or deformity. EXTREMITIES: No cyanosis, clubbing, or pedal edema. NEUROLOGICAL: Gross neurological examination did not reveal any focal deficits. SKIN: No rashes. Assessment and plan Chest pain, rule out acute coronary syndrome Hypertension GERD Monitor vital signs Monitor CBC Monitor CMP Continue telemetry monitoring Trend troponin. Order D-dimer Ordered lipid panel Ordered HbA1c Ordered 2D echo Resume Home meds Consult cardiology Labs and medication were reviewed.. Continue same treatment. Continue with symptomatic treatment. Resume home medication. Monitor labs and vitals. DVT and GI prophylaxis. Further recommendations as per clinical course of the patient Dictation was produced using [employer] dictation software. please excuse any grammatical, word or spelling errors. Past Medical History Past Medical History: Chest Pain / Angina, GERD/Reflux, Hypertension, Pneumonia Additional Past Medical History / Comment(s): left ankle pain, DIVERTICULAR DI SEASE,ARTHRITIS, Vertigo History of Any Multi-Drug Resistant Organisms: None Reported Past Surgical History: Appendectomy, Bladder Surgery, Heart Catheterization, Hysterectomy Additional Past Surgical History / Comment(s): BOWEL RESECTION, UMB HERNIA REPAIR, MILLER CATARACTS,COLONOSCOPY Past Anesthesia/Blood Transfusion Reactions: Motion Sickness Past Psychological History: Anxiety Smoking Status: Never smoker Past Alcohol Use History: None Reported Past Drug Use History: None Reported - Past Family History Mother Family Medical History: CVA/TIA, Dementia, Hypertension, Seizure Disorder Additional Family Medical History / Comment(s): AT AGE 83 Father Family Medical History: Diabetes Mellitus, Hypertension Additional Family Medical History / Comment(s): HERNIA Medications and Allergies Home Medications Medication Instructions Recorded Confirmed Type HYDROcodone/APAP 10-325MG [[place] 1 tab PO TID PRN 05/19/22 05/15/23 History 10-325] Losartan Potassium [Cozaar] 100 mg PO DAILY 05/19/22 05/15/23 History Acetaminophen Tab [Tylenol] 500 mg PO Q6H PRN 05/15/23 05/15/23 History Ascorbic Acid [Vitamin C] 1,000 mg PO DAILY 05/15/23 05/15/23 History Cholecalciferol [Vitamin D3 (25 25 mcg PO DAILY 05/15/23 05/15/23 History Mcg = 1000 Iu)] Cyanocobalamin [Vitamin B-12] 500 mcg PO DAILY 05/15/23 05/15/23 History Gabapentin [Neurontin] 300 mg PO DAILY 05/15/23 05/15/23 History Naproxen Sodium [Aleve] 220 mg PO BID PRN 05/15/23 05/15/23 History cloNIDine HCL 0.1 mg PO TID PRN 05/15/23 05/15/23 History Nitroglycerin Sl Tabs [Nitrostat] 0.4 mg SUBLINGUAL Q5M PRN #20 tab 05/17/23 Rx amLODIPine [Norvasc] 10 mg PO DAILY #30 tab 05/17/23 Rx Allergies Allergy/AdvReac Type Severity Reaction Status Date / Time No Known Allergies Allergy Verified 08/29/23 09:18 Physical Exam Vitals: Vital Signs Temp Pulse Resp BP Pulse Ox 08/29/23 11:53 98.2 F 80 17 105/87 96 08/29/23 10:13 98.9 F 63 18 127/68 96 08/29/23 09:22 98.6 F 66 16 133/86 95 08/29/23 09:16 98.1 F 74 20 168/111 96 Intake and Output 08/28/23 08/29/23 08/29/23 22:59 06:59 14:59 Other: Weight 79.379 kg Results CBC & Chem 7: 08/29/23 10:00 08/29/23 10:00 Labs: Abnormal Lab Results - Last 24 Hours (Table) 08/29/23 08/29/23 Range/Units 10:00 10:00 WBC 11.2 H (3.8-10.6) k/uL Neutrophils # 8.6 H (1.3-7.7) k/uL Chloride 109 H (98-107) mmol/L BUN 25 H (7-17) mg/dL Glucose 106 H (74-99) mg/dL
--- NOTE | 2023-08-29 18:35 | CT ---
EXAMINATION TYPE: CT angio chest CT DLP: 533.2 mGycm, Automated exposure control for dose reduction was used. DATE OF EXAM: 08/29/2023 5:57 PM COMPARISON: Chest radiograph from same day. Multiple CTs of the chest with most recent on 05/19/2022. CLINICAL INDICATION:Female, 82 years old with history of PE; pain, dizziness, SOB. TECHNIQUE/CONTRAST: CTA scan of the thorax is performed with IV Contrast, patient injected with 80ml mL of Isovue 370, SD P images are created and reviewed these are created on a separate workstation.. FINDINGS: Pulmonary Artery: There is no evidence for a filling defect within the pulmonary vasculature to sugge st acute pulmonary embolism. The pulmonary artery is of normal size. Lungs/Pleura: No evidence of focal consolidation, pleural effusion or pneumothorax. Airway: Large airways are patent. Heart: Heart is within normal limits for size. Vasculature: No evidence of aortic aneurysm. Mediastinum: No gross evidence of adenopathy. Musculoskeletal: Moderate degenerative disc disease changes are present throughout the thoracolumbar spine. Soft Tissues/lymph nodes: Left axilla surgical clips. Lower neck: No significant findings. Upper Abdomen: No significant findings. IMPRESSION: No evidence of pulmonary embolism.
[2023-08-29] MEDS: NITROGLYCERIN OINT 1 INCH/GM PACKET TOPICAL SCH (18:44)
[2023-08-29] MEDS ORDERED: cloNIDine HCL 0.1 MG TAB PO PRN (20:19)
[2023-08-29] MEDS ORDERED: ACETAMINOPHEN TAB 500 MG TAB PO PRN (20:19)
[2023-08-29] MEDS: HYDROcodone/APAP 10-325MG 1 EACH TAB PO PRN (20:37)
[2023-08-29] MEDS: GABAPENTIN 300 MG CAP PO SCH (20:37)
[2023-08-30] MEDS ORDERED: ASPIRIN 325 MG TAB PO SCH (09:00)
[2023-08-30] MEDS: CHOLECALCIFEROL 25 MCG (1000 IU) TABLET PO SCH (09:18)
[2023-08-30] MEDS: ASCORBIC ACID 500 MG TAB PO SCH (09:18)
[2023-08-30] MEDS: CYANOCOBALAMIN 500 MCG TAB PO SCH (09:18)
[2023-08-30] MEDS: LOSARTAN 50 MG TAB PO SCH (09:18)
[2023-08-30] MEDS: amLODIPine 5 MG TAB PO SCH (09:18)
[2023-08-30] MEDS: ASPIRIN 81 MG PO SCH (09:19)
--- NOTE | 2023-08-30 10:00 | CA ---
Transthoracic Echo Report Name: Celine Aaron Age: 82 Gender: F : 1940 Exam Date: 08/30/2023 08:44 Exam Location: [facility] Ht (in): 60 Wt (lb): 175 Ordering Physician: Nasir Mccracken MD Attending/Referring Phys: Medical Record Transcriber Fifi Paul RDCS Procedure CPT: Indications: Chest Pain Cardiac Hx: Technical Quality: Fair Contrast 1: Total Dose (mL): Contrast 2: Total Dose (mL): MEASUREMENTS (Male / Female) Normal Values 2D ECHO LV Diastolic Diameter PLAX 4.6 cm 4.2 - 5.9 / 3.9 - 5.3 cm LV Systolic Diameter PLAX 3.1 cm IVS Diastolic Thickness 1.1 cm 0.6 - 1.0 / 0.6 - 0.9 cm LVPW Diastolic Thickness 1.1 cm 0.6 - 1.0 / 0.6 - 0.9 cm LV Relative Wall Thickness 0.5 RV Internal Dim ED PLAX 2.0 cm Aortic Root Diameter 3.3 cm LV Diastolic Volume MOD BP 53.2 cm??? 67 - 155 / 56 - 104 cm??? LV Systolic Volume MOD BP 17.1 cm??? 22 - 58 / 19 - 49 cm??? LV Ejection Fraction MOD BP 67.9 % >= 55 % LV Cardiac Index MOD BP 1159.6 cm???/min???m??? LV Diastolic Volume MOD 4C 50.0 cm??? LV Systolic Volume MOD 4C 18.4 cm??? LV Ejection Fraction MOD 4C 63.2 % LV Cardiac Index MOD 4C 1013.1 cm???/min???m??? LV Diastolic Length 4C 7.5 cm LV Systolic Length 4C 5.6 cm LV Diastolic Volume MOD 2C 52.6 cm??? LV Systolic Volume MOD 2C 16.0 cm??? LV Ejection Fraction MOD 2C 69.5 % LV Cardiac Index MOD 2C 1171.2 cm???/min???m??? LV Diastolic Length 2C 6.9 cm LV Systolic Length 2C 5.7 cm FINDINGS Left Ventricle Left ventricular ejection fraction is estimated at 60-65 %. Mildly increased septal wall thickness. Mildly increased posterior wall thickness. No obvious regional wall motion abnormalities. Left ventricular cavity size normal. Right Ventricle Normal right ventricular size. Right Atrium Normal right atrial size. Left Atrium Normal left atrial size. Mitral Valve Aortic Valve Tricuspid Valve Pulmonic Valve Pericardium No pericardial or pleural effusion. Aorta Normal size aortic root and proximal ascending aorta. CONCLUSIONS Normal LV systolic function. Mild LVH Previewed by: Dr. Filemon Brody MD (Electronically Signed) Final Date: 30 August 2023 09:59
[2023-08-30 10:15] LABS: Basophils # (A) 0.06 X 10*3/uL (0.00-0.10); Basophils % (A) 0.6 %; Eosinophils # (A) 0.43 X 10*3/uL (0.04-0.35); Eosinophils % (A) 4.2 %; HCT 37.9 % (37.2-46.3); HGB 12.6 g/dL (12.0-15.0); Lymphocytes # (A) 2.52 X 10*3/uL (0.90-5.00); Lymphocytes % (A) 24.3 %; MCH 30.4 pg (27.0-32.0); MCHC 33.2 g/dL (32.0-37.0); MCV 91.3 FL (80.0-97.0); Mean Platelet Volume 9.8 FL (9.5-12.2); Monocytes # (A) 0.79 X 10*3/uL (0.20-1.00); Monocytes % (A) 7.6 %; NRBC Per 100 WBC 0 X 10*3/uL (0.00-0.01); Neutrophils # (A) 6.51 X 10*3/uL (1.80-7.70); Neutrophils % (A) 62.8 %; Platelet Count 254 X 10*3/uL (140-440); RBC 4.15 X 10*6/uL (4.10-5.20); RDW 13.3 % (11.5-14.5); WBC 10.36 X 10*3/uL (4.50-10.00)
--- NOTE | 2023-08-30 10:15 | P.CRDCN ---
History of Present Illness History of present illness: HISTORY OF PRESENT ILLNESS: This is a 82-year-old female with a past medical history significant for hypertension. 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 We have been asked to see the patient in consultation for chest pain. Patient examined at the bedside. Patient states on Wednesday she began having pain in her chest. She states it felt like somebody was squeezing her left breast. She states that she sat down to rest and the pain eventually subsided. She states on Wednesday she began to feel short of breath and was having some left-sided pain. This morning she states she is still having trouble taking a full breath but denies any significant chest pain or pressure. Vital signs are stable. DIAGNOSTICS: - EKG reveals sinus mechanism with T wave inversions in inferior leads and precordial leads, new from 2022 - Chest xray negative for acute process - Chest CT: Negative for pulmonary embolism - Laboratory data: WBC 11.2. Hemoglobin 14.0. Platelet count 293. D-dimer 0.81. Sodium 141. Potassium 4.4. BUN 25. Creatinine 1.02. Magnesium 1.9. Troponin negative x 3. proBNP 338. - Current home cardiac medications include amlodipine 5 mg daily, clonidine 0.1 mg 3 times a day as needed, losartan 100 mg daily. - Most recent echocardiogram obtained in May 2023 revealing ejection fraction 55 to 60%, trace MR - Cardiac catheterization history: 2015 revealing no significant CAD - Patient underwent Lexiscan stress test on 05/17/2023 which was negative for reversible ischemia REVIEW OF SYSTEMS: At the time of my exam: CONSTITUTIONAL: Denies fever or chills. HEENT: Denies blurred vision, vision changes, or eye pain. Denies hemoptysis CARDIOVASCULAR: Denies chest pain. Denies orthopnea. Denies PND. Denies palpitations RESPIRATORY: Denies shortness of breath. GASTROINTESTINAL: Denies abdominal pain. Denies nausea or vomiting. HEMATOLOGIC: Denies bleeding disorders. GENITOURINARY: Denies any blood in urine. SKIN: Denies pruitis. Denies rash. PHYSICAL EXAM: VITAL SIGNS: Reviewed. GENERAL: Well-developed in no acute distress. HEENT: Head is normocephalic. Pupils are equal, round. Sclerae anicteric. Mucous membranes of the mouth are moist. Neck supple. No JVD or thyromegaly LUNGS: Respirations even and unlabored. Lungs essentially clear to auscultation bilaterally. HEART: Regular rate and rhythm. S1 and S2 heard. ABDOMEN: Soft. Nondistended. Nontender. EXTREMITIES: Normal range of motion. No clubbing or cyanosis. Peripheral pulses intact. No lower extremity edema NEUROLOGIC: Awake and alert. Oriented x 3. ASSESSMENT: Chest pain Hypertension Normal coronary arteries, per cath in 2016 Obesity: BMI 34.2 PLAN: An acute coronary event has been ruled out Resume home cardiac medications Patient with recent negative Lexiscan in May 2023. However due to patient's continued symptoms and EKG changes that are new from 2022, recommend cardiac catheterization for definitive diagnosis. Patient to think about procedure and will let staff know when she has made a decision. Further recommendations pending patient course Nurse practitioner note has been reviewed by physician. Signing provider agrees with the documented findings, assessment, and plan of care documented by CHIEF MECHANICAL OFFICER as a scribe. Past Medical History Past Medical History: Chest Pain / Angina, GERD/Reflux, Hypertension, Pneumonia Additional Past Medical History / Comment(s): left ankle pain, DIVERTICULAR D ISEASE,ARTHRITIS, Vertigo History of Any Multi-Drug Resistant Organisms: None Reported Past Surgical History: Appendectomy, Bladder Surgery, Heart Catheterization, Hysterectomy Additional Past Surgical History / Comment(s): BOWEL RESECTION, UMB HERNIA REPAIR, MILLER CATARACTS,COLONOSCOPY Past Anesthesia/Blood Transfusion Reactions: Motion Sickness Past Psychological History: Anxiety Smoking Status: Never smoker Past Alcohol Use History: None Reported Additional Past Alcohol Use History / Comment(s): STARTED SMOKED 1969, QUIT 1979 SMOKED 1 PACK PER WEEK Past Drug Use History: None Reported - Past Family History Mother Family Medical History: CVA/TIA, Dementia, Hypertension, Seizure Disorder Additional Family Medical History / Comment(s): AT AGE 83 Father Family Medical History: Diabetes Mellitus, Hypertension Additional Family Medical History / Comment(s): HERNIA Medications and Allergies Home Medications Medication Instructions Recorded Confirmed Type HYDROcodone/APAP 10-325MG [English 1 tab PO TID PRN 05/19/22 08/29/23 History 10-325] Losartan Potassium [Cozaar] 100 mg PO DAILY 05/19/22 08/29/23 History Acetaminophen Tab [Tylenol] 500 mg PO Q6H PRN 05/15/23 08/29/23 History Ascorbic Acid [Vitamin C] 1,000 mg PO DAILY 05/15/23 08/29/23 History Cholecalciferol [Vitamin D3 (25 25 mcg PO DAILY 05/15/23 08/29/23 History Mcg = 1000 Iu)] Cyanocobalamin [Vitamin B-12] 500 mcg PO DAILY 05/15/23 08/29/23 History Gabapentin [Neurontin] 300 mg PO HS 05/15/23 08/29/23 History Naproxen Sodium [Aleve] 220 mg PO BID PRN 05/15/23 08/29/23 History cloNIDine HCL 0.1 mg PO TID PRN 05/15/23 08/29/23 History Nitroglycerin Sl Tabs [Nitrostat] 0.4 mg SUBLINGUAL Q5M PRN #20 tab 05/17/23 08/29/23 Rx amLODIPine [Norvasc] 5 mg PO DAILY 08/29/23 08/29/23 History Allergies Allergy/AdvReac Type Severity Reaction Status Date / Time No Known Allergies Allergy Verified 08/29/23 18:00 Physical Exam Vitals: Vital Signs Temp Pulse Pulse Resp BP BP Pulse Ox 08/30/23 07:00 98.5 F 77 16 132/65 95 08/30/23 02:05 98.5 F 65 15 123/76 98 08/29/23 19:16 98.5 F 64 16 133/70 97 08/29/23 18:03 98.5 F 64 17 146/65 97 08/29/23 17:24 98.4 F 55 L 16 131/65 98 08/29/23 14:08 98.2 F 69 20 132/52 96 08/29/23 11:53 98.2 F 80 17 105/87 96 08/29/23 10:13 98.9 F 63 18 127/68 96 08/29/23 09:22 98.6 F 66 16 133/86 95 08/29/23 09:16 98.1 F 74 20 168/111 96 Intake and Output 08/29/23 08/30/23 08/30/23 22:59 06:59 14:59 Intake Total 120 Balance 120 Intake: Oral 120 Other: # Voids 1 1 Weight 79.379 kg Results 08/29/23 10:00 08/29/23 10:00 Cardiac Enzymes 08/29/23 08/29/23 08/29/23 Range/Units 10:00 10:00 13:42 AST 25 (14-36) U/L Troponin I <0.012 <0.012 (0.000-0.034) ng/mL 08/29/23 Range/Units 16:46 AST (14-36) U/L Troponin I <0.012 (0.000-0.034) ng/mL Coagulation 08/29/23 Range/Units 10:00 PT 10.5 (10.0-12.5) sec APTT 25.3 (22.0-30.0) sec CBC 08/29/23 Range/Units 10:00 WBC 11.2 H (3.8-10.6) k/uL RBC 4.70 (3.80-5.40) m/uL Hgb 14.0 (11.4-16.0) gm/dL Hct 43.4 (34.0-46.0) % Plt Count 293 (150-450) k/uL Comprehensive Metabolic Panel 08/29/23 Range/Units 10:00 Sodium 141 (137-145) mmol/L Potassium 4.4 (3.5-5.1) mmol/L Chloride 109 H (98-107) mmol/L Carbon Dioxide 26 (22-30) mmol/L BUN 25 H (7-17) mg/dL Creatinine 1.02 (0.52-1.04) mg/dL Glucose 106 H (74-99) mg/dL Calcium 9.3 (8.4-10.2) mg/dL AST 25 (14-36) U/L ALT 16 (4-34) U/L Alkaline Phosphatase 102 (38-126) U/L Total Protein 7.9 (6.3-8.2) g/dL Albumin 4.3 (3.5-5.0) g/dL Current Medications Generic Name Dose Route Start Last Admin Trade Name Freq PRN Reason Stop Dose Admin Acetaminophen 500 mg 08/29/23 20:19 Acetaminophen Tab 500 Mg Tab PO Q6H PRN Pain or Fever > 100.5 Hydrocodone Bitart/Acetaminophen 1 each 08/29/23 20:19 08/29/23 20:37 Hydrocodone/Apap 10-325mg 1 Each Tab PO 1 each TID PRN Administration Pain Amlodipine Besylate 5 mg 08/30/23 09:00 Amlodipine 5 Mg Tab PO DAILY [facility] Ascorbic Acid 1,000 mg 08/30/23 09:00 Ascorbic Acid 500 Mg Tab PO DAILY [facility] Aspirin 325 mg 08/30/23 09:00 Aspirin 325 Mg Tab PO DAILY [facility] Cholecalciferol 25 mcg 08/30/23 09:00 Cholecalciferol 25 Mcg (1000 Iu) Tablet PO DAILY [facility] Clonidine 0.1 mg 08/29/23 20:19 Clonidine Hcl 0.1 Mg Tab PO TID PRN high bp Cyanocobalamin 500 mcg 08/30/23 09:00 Cyanocobalamin 500 Mcg Tab PO DAILY [facility] Gabapentin 300 mg 08/29/23 21:00 08/29/23 20:37 Gabapentin 300 Mg Cap PO 300 mg HS [facility] Administration Losartan Potassium 100 mg 08/30/23 09:00 Losartan 50 Mg Tab PO DAILY [facility] Nitroglycerin 0.4 mg 08/29/23 13:04 Nitroglycerin Sl Tabs 0.4 Mg Tab SUBLINGUAL Q5M PRN Chest Pain Nitroglycerin 1 inch 08/29/23 18:00 08/30/23 05:01 Nitroglycerin Oint 1 Inch/Gm Packet TOPICAL Not Given Q6HR [facility] Intake and Output 08/29/23 08/30/23 08/30/23 22:59 06:59 14:59 Intake Total 120 Balance 120 Intake: Oral 120 Other: # Voids 1 1 Weight 79.379 kg 08/29/23 10:00 08/29/23 10:00
[2023-08-30 10:25] LABS: ALT 11 U/L (8-44); AST 17 U/L (13-35); Albumin 3.9 g/dL (3.8-4.9); Albumin/Globulin Ratio 1.34 Ratio (1.60-3.17); Alkaline Phosphatase 77 U/L (41-126); BUN/Creat Ratio 25.36 Ratio (12.00-20.00); Blood Urea Nitrogen 27.9 mg/dL (9.0-27.0); Calcium 8.9 mg/dL (8.7-10.3); Carbon Dioxide 24.5 mmol/L (21.6-31.8); Chloride 106 mmol/L (96-109); Chol/HDL Ratio 3.45 Ratio; Globulin 2.9 g/dL (1.6-3.3); Glucose 78 mg/dL (70-110); Potassium 4.3 mmol/L (3.5-5.5); Sodium 142 mmol/L (135-145); Total Bilirubin 0.4 mg/dL (0.3-1.2); Total Protein 6.8 g/dL (6.2-8.2)
[2023-08-30] MEDS ORDERED: NITROGLYCERIN SL TABS 0.4 MG TAB SUBLINGUAL PRN (11:24)
[2023-08-30] MEDS ORDERED: ALPRAZolam 0.5 MG TAB PO PRN (11:24)
[2023-08-30] MEDS ORDERED: ALPRAZolam 0.25 MG TAB PO PRN (11:24)
[2023-08-30 11:32] LABS: Glucose,Whole Blood 100 mg/dL (70-110)
[2023-08-30] MEDS: ASPIRIN 325 MG TAB PO STA (11:33)
[2023-08-30] MEDS: ATORVASTATIN 80 MG TAB PO STA (11:33)
[2023-08-30] MEDS: SODIUM CHLORIDE 0.9% 1,000 ML in EMPTY BAG 1 BAG IV SCH (11:34)
[2023-08-30] MEDS: SODIUM CHLORIDE 0.9% 1,000 ML IV ONE (11:52)
[2023-08-30] MEDS: MIDAZOLAM 2 MG/2 ML VIAL IVP ONE (12:18)
[2023-08-30] MEDS: VERAPAMIL SYRINGE (5 MG/10 ML) INTRAARTER ONE ×2 (12:20→12:21)
[2023-08-30] MEDS: LIDOCAINE 1% INJ 10MG/ML (30 ML VIAL-PF) SQ ONE (12:20)
[2023-08-30] MEDS: LIDOCAINE 1% INJ 10MG/ML (20 ML MDV) SQ ONE (12:39)
[2023-08-30] MEDS: fentaNYL (PF) 50 MCG/1 ML VIAL IVP ONE (12:41)
[2023-08-30] MEDS ORDERED: RX INFO: IV CONTRAST WAS GIVEN 1 EACH MISC MISCELLANE PRN (12:50)
--- NOTE | 2023-08-30 12:53 | P.PCN ---
Date of Procedure: 08/30/23 Operative Findings: CARDIAC CATHETERIZATION PERFORMING PHYSICIAN: Filemon Brody MD, RPVI PROCEDURE PERFORMED: 1. Selective right and left coronary angiogram 2. Left heart catheterization 3. Ultrasound-guided access of the right radial artery 4. Ultrasound-guided access of the right common femoral artery and right common femoral artery angiogram INDICATION: Unstable angina COMPLICATION: None APPROACH: Right radial artery LEVEL OF SEDATION: Moderate with a sedation length of 24 minutes PROCEDURE DESCRIPTION: After obtaining an informed consent, the patient was brought to cardiac engineering laboratory technician. Local anesthesia was performed using lidocaine subcutaneously. The right radial artery was cannulated using Seldinger technique, the guidewire passed easily, following that we advanced a 5-[place] sheath dilator assembly, the wire and dilator were removed and sheath was flushed. Following that, 2 mg of verapamil along with 5000 unit heparin were given. Attempting engaging the right coronary artery from right radial approach was unsuccessful and for that reason we decided to go from the right common femoral artery. The right common femoral artery was cannulated using micropuncture technique under ultrasound guidance the micropuncture wire passed easily and placed a 6 [place] 11 cm sheath at the right common femoral artery. Selective right and left coronary angiogram performed using JR4 and JL 4 catheters and left heart catheterization was performed using 6 [place] pigtail catheter The procedure was completed there was no complication. SELECTIVE CORONARY ANGIOGRAM: The right coronary artery: Large-caliber vessel and a dominant vessel and appears to be angiographically normal Left main: Short but angiographically normal The left circumflex: Is angiographically normal. Is a nondominant vessel. The left anterior descending artery: Large-caliber vessel and appears to be angiographically normal and gives rise into multiple diagonal branches HEMODYNAMICS: The LVEDP was 5 mmHg with no significant gradient across aortic valve CONCLUSION: 1. Normal coronary angiogram 2. Normal left-sided filling pressure POSTPROCEDURE MANAGEMENT: Medical treatment
[2023-08-30] MEDS: IOPAMIDOL-370 200ML BTL INJ ONE (13:00)
--- NOTE | 2023-08-30 13:25 | P.PN ---
Subjective Progress Note Date: 08/30/23 patient is a 82-year-old lady with past medical history significant for hypertension who presented to ER because of chest pain. Patient stated that she was all right when on Wednesday she started noticing that she was having right- sided chest pain which was squeezing in nature, intense, radiating across the chest, no aggravating or alleviating factor associated chest pain. Patient did feel short of breath at the time. Patient stated that the chest pain lasted a few minutes and after that it eased up. Patient was all right yesterday but still did not feel normal. This morning patient again had chest pain but this time was left-sided, pressure-like, nonradiating and no aggravating or relieving associated with this pain either. There was no complaint of nausea, vomiting, pain. No complaint of lightheadedness dizziness. Patient denies any swelling of feet. There is no complaint orthopnea or PND. Because of chest pain, patient came to the ER Initial lab work done in the ER showed BBC 11.2, hemoglobin 14, platelet count 293, sodium 141, potassium 4.4, BUN 25, creatinine 1.02, glucose 106, calcium 9.3, bilirubin 0.8, AST 25, ALT 16, troponin 0.012, proBNP 338, EKG done in the ER showed heart rate of 76 , no ST segment elevation or depression seen, no T-wave inversions seen. Chest x-ray done in the ER showed no acute cardiopulmonary process Patient admitted to internal medicine service 08/29. Patient seen and examined. CTA chest done was negative for PE. 2D echo done showed normal LV systolic function, mild LVH. REVIEW OF SYSTEMS: CONSTITUTIONAL: No fever, no malaise,. CARDIOVASCULAR: No chest pain, no palpitations, no syncope. PULMONARY: No shortness of breath, no cough, GASTROINTESTINAL: No diarrhea, no nausea, no vomiting, no abdominal pain. NEUROLOGICAL: No headaches, no weakness, PHYSICAL EXAMINATION: GENERAL: The patient is alert and oriented x3, not in any acute distress. Well developed, well nourished. HEENT: Pupils are round and equally reacting to light. EOMI. No scleral icterus. No conjunctival pallor. Normocephalic, atraumatic. No pharyngeal erythema. No thyromegaly. CARDIOVASCULAR: S1 and S2 present. No murmurs, rubs, or gallops. PULMONARY: Chest is clear to auscultation, no wheezing or crackles. ABDOMEN: Soft, nontender, nondistended, normoactive bowel sounds. No palpable organomegaly. MUSCULOSKELETAL: No joint swelling or deformity. EXTREMITIES: No cyanosis, clubbing, or pedal edema. NEUROLOGICAL: Gross neurological examination did not reveal any focal deficits. SKIN: No rashes. Assessment and plan Chest pain, rule out acute coronary syndrome Hypertension GERD Monitor vital signs Monitor CBC Monitor CMP Continue telemetry monitoring Continue aspirin Continue losartan, Norvasc, clonidine Cardiology eval the patient, recommended cardiac cath, patient still undecided about the procedure Labs and medication were reviewed.. Continue same treatment. Continue with symptomatic treatment. Resume home medication. Monitor labs and vitals. DVT and GI prophylaxis. Further recommendations as per clinical course of the pa bacilio Dictation was produced using [employer] dictation software. please excuse any grammatical, word or spelling errors. Objective - Vital Signs Vital signs: Vital Signs Temp 98.5 F 08/30/23 07:00 Pulse 77 08/30/23 07:00 Resp 16 08/30/23 07:00 BP 132/65 08/30/23 07:00 Pulse Ox 95 08/30/23 07:00 FiO2 Intake & Output 08/29/23 08/30/23 08/30/23 18:59 06:59 18:59 Intake Total 120 Balance 120 Weight 79.379 kg Intake: Oral 120 Other: # Voids 1 - Labs CBC & Chem 7: 08/30/23 05:49 08/30/23 05:49 Labs: Abnormal Lab Results - Last 24 Hours (Table) 08/29/23 08/29/23 08/30/23 Range/Units 10:00 13:42 05:49 WBC (4.50-10.00) X 10*3/uL Immature Gran # (0.00-0.04) X 10*3/uL Eosinophils # (0.04-0.35) X 10*3/uL D-Dimer 0.81 H (<0.60) mg/L FEU Chloride 109 H (98-107) mmol/L BUN 25 H 27.9 H (7-17) mg/dL Est GFR (CKD-EPI) 51 L (>=60) BUN/Creatinine Ratio 25.36 H (12.00-20.00) Ratio Glucose 106 H (74-99) mg/dL Albumin/Globulin Ratio 1.34 L (1.60-3.17) Ratio 08/30/23 Range/Units 05:49 WBC 10.36 H (4.50-10.00) X 10*3/uL Immature Gran # 0.05 H (0.00-0.04) X 10*3/uL Eosinophils # 0.43 H (0.04-0.35) X 10*3/uL D-Dimer (<0.60) mg/L FEU Chloride (98-107) mmol/L BUN (7-17) mg/dL Est GFR (CKD-EPI) (>=60) BUN/Creatinine Ratio (12.00-20.00) Ratio Glucose (74-99) mg/dL Albumin/Globulin Ratio (1.60-3.17) Ratio
[2023-08-30] MEDS: SODIUM CHLORIDE 0.9% 1,000 ML IV SCH (13:31)
[2023-08-30 15:23] VITALS: RESP 14; TEMP 98
[2023-08-30 17:44] VITALS: BP 147/77; PULSE 64
[2023-08-31] MEDS ORDERED: HEPARIN SODIUM,PORCINE 10,000 UNIT in SODIUM CHLORIDE 0.9% 1,000 ML IRRIGATION PRN (07:00)
[2023-08-31] MEDS ORDERED: HEPARIN SODIUM,PORCINE (1 ML) 2,500 UNIT in SODIUM CHLORIDE 0.9% 250 ML IRRIGATION PRN (07:00)
--- NOTE | 2023-08-31 09:56 | P.DS ---
Providers Date of admission: 08/29/23 13:04 Expected date of discharge: 08/30/23 Attending physician: Nasir Mccracken MD Consults: 08/29/23 13:04 Consult Physician Urgent Consulting Provider: [facility] Consult Reason/Comments: Chest pain Do you want consulting provider notified?: Yes Primary care physician: Racquel Aggarwal [facility] Course: Discharge diagnoses; Chest pain unstable angina Hypertension GERD Hospital course; patient is a 82-year-old lady with past medical history significant for hypertension who presented to ER because of chest pain. Patient stated that she was all right when on Wednesday she started noticing that she was having right- sided chest pain which was squeezing in nature, intense, radiating across the chest, no aggravating or alleviating factor associated chest pain. Patient did feel short of breath at the time. Patient stated that the chest pain lasted a few minutes and after that it eased up. Patient was all right yesterday but sti ll did not feel normal. This morning patient again had chest pain but this time was left-sided, pressure-like, nonradiating and no aggravating or relieving associated with this pain either. There was no complaint of nausea, vomiting, pain. No complaint of lightheadedness dizziness. Patient denies any swelling of feet. There is no complaint orthopnea or PND. Because of chest pain, patient came to the ER Initial lab work done in the ER showed BBC 11.2, hemoglobin 14, platelet count 293, sodium 141, potassium 4.4, BUN 25, creatinine 1.02, glucose 106, calcium 9.3, bilirubin 0.8, AST 25, ALT 16, troponin 0.012, proBNP 338, EKG done in the ER showed heart rate of 76 , no ST segment elevation or depression seen, no T-wave inversions seen. Chest x-ray done in the ER showed no acute cardiopulmonary process Patient admitted to internal medicine service 08/29. Patient seen and examined. CTA chest done was negative for PE. 2D echo done showed normal LV systolic function, mild LVH. Cath done showed normal coronaries. Cardiology cleared the patient for discharge PHYSICAL EXAMINATION: GENERAL: The patient is alert and oriented x3, not in any acute distress. Well developed, well nourished. HEENT: Pupils are round and equally reacting to light. EOMI. No scleral icterus. No conjunctival pallor. Normocephalic, atraumatic. No pharyngeal erythema. No thyromegaly. CARDIOVASCULAR: S1 and S2 present. No murmurs, rubs, or gallops. PULMONARY: Chest is clear to auscultation, no wheezing or crackles. ABDOMEN: Soft, nontender, nondistended, normoactive bowel sounds. No palpable organomegaly. MUSCULOSKELETAL: No joint swelling or deformity. EXTREMITIES: No cyanosis, clubbing, or pedal edema. NEUROLOGICAL: Gross neurological examination did not reveal any focal deficits. SKIN: No rashes. Dictation was produced using [employer] dictation software. please excuse any grammatical, word or spelling errors. Patient Condition at Discharge: Good Plan - Discharge Summary New Discharge Prescriptions: Continue Losartan Potassium [Cozaar] 100 mg PO DAILY HYDROcodone/APAP 10-325MG [Solomon 10-325] 1 tab PO TID PRN PRN Reason: Pain Cyanocobalamin [Vitamin B-12] 500 mcg PO DAILY Acetaminophen Tab [Tylenol] 500 mg PO Q6H PRN PRN Reason: Pain Or Fever > 100.5 cloNIDine HCL 0.1 mg PO TID PRN PRN Reason: high bp Ascorbic Acid [Vitamin C] 1,000 mg PO DAILY Nitroglycerin Sl Tabs [Nitrostat] 0.4 mg SUBLINGUAL Q5M PRN #20 tab PRN Reason: Chest Pain amLODIPine [Norvasc] 5 mg PO DAILY Naproxen Sodium [Aleve] 220 mg PO BID PRN PRN Reason: Pain Cholecalciferol [Vitamin D3 (25 Mcg = 1000 Iu)] 25 mcg PO DAILY Gabapentin [Neurontin] 300 mg PO HS Discharge Medication List HYDROcodone/APAP 10-325MG [Solomon 10-325] 1 tab PO TID PRN 05/19/22 [History] Losartan Potassium [Cozaar] 100 mg PO DAILY 05/19/22 [History] Acetaminophen Tab [Tylenol] 500 mg PO Q6H PRN 05/15/23 [History] Ascorbic Acid [Vitamin C] 1,000 mg PO DAILY 05/15/23 [History] Cholecalciferol [Vitamin D3 (25 Mcg = 1000 Iu)] 25 mcg PO DAILY 05/15/23 [History] Cyanocobalamin [Vitamin B-12] 500 mcg PO DAILY 05/15/23 [History] Gabapentin [Neurontin] 300 mg PO HS 05/15/23 [History] Naproxen Sodium [Aleve] 220 mg PO BID PRN 05/15/23 [History] cloNIDine HCL 0.1 mg PO TID PRN 05/15/23 [History] Nitroglycerin Sl Tabs [Nitrostat] 0.4 mg SUBLINGUAL Q5M PRN #20 tab 05/17/23 [Rx] amLODIPine [Norvasc] 5 mg PO DAILY 08/29/23 [History] Follow up Appointment(s)/Referral(s): Filemon Brody MD [STAFF PHYSICIAN] - 1 Week (office will call patient with appointment ) Racquel Aggarwal DO [Primary Care Provider] - 1-2 days Patient Instructions/Handouts: Chest Pain (DC), Heart Catheterization (DC) Discharge Disposition: HOME SELF-CARE
== END 2023-08-30 19:30 | disposition home or self-care (01) ==
LOC: EC 09:14 → 6NMEDSUR 13:04
PROVIDERS: ADMIT Internal Medicine; ATTEND Internal Medicine
DX: I25.110 Atherosclerotic heart disease of native coronary artery with unstable angina pectoris (principal); I10 Essential (primary) hypertension; K21.9 Gastro-esophageal reflux disease without esophagitis; Z90.49 Acquired absence of other specified parts of digestive tract; Z90.710 Acquired absence of both cervix and uterus; Z83.3 Family history of diabetes mellitus; Z82.0 Family history of epilepsy and other diseases of the nervous system; Z82.49 Family history of ischemic heart disease and other diseases of the circulatory system; Z79.899 Other long term (current) drug therapy; Z68.34 Body mass index [BMI] 34.0-34.9, adult; E66.9 Obesity, unspecified
CPT/HCPCS: 99285; 36415; 93005 ×2; 93306; 93458; 76937; 85379; 83880; 80061; 80053 ×2; 83735; 84484; 85025 ×2; 85610; 85730; 83036; 71046; 71275; G0378 ×2; C1769 ×4; C1894 ×2; J2250; J2001 ×2; Q9967 ×2; J3010

== ENCOUNTER 2023-09-05 21:20 | Emergency (ER) | payer MEDICARE ==
[2023-09-05 21:31] VITALS: TEMP 98.8
--- NOTE | 2023-09-05 21:31 | ED ---
Chest Pain HPI - General Stated Complaint: Chest pain Time Seen by Provider: 09/05/23 21:23 Source: patient, EMS, RN notes reviewed, old records reviewed Mode of arrival: EMS Limitations: no limitations - History of Present Illness Initial Comments: This is a 82-year-old female with history of hypertension coming in for chest pain today. Patient took aspirin prior to arrival nitro prior to arrival chest pain is right-sided squeezing and tight with no symptoms of shortness of breath. No recent fever cough or congestion no travel or sick contacts. Patient does have history of similar chest pain in the past with no cause found. Patient symptoms are improved on arrival to the ER MD Complaint: chest pain -: hour(s) Onset: during rest, during exertion Pain Location: right chest Severity: mild Severity scale (1-10): 2 Quality: aching Consistency: intermittent, now resolved Improves With: nothing Worsens With: nothing Other Symptoms: palpitations Treatments Prior to Arrival: none - Related Data Home Medications Medication Instructions Recorded Confirmed HYDROcodone/APAP 10-325MG [[place] 1 tab PO TID PRN 05/19/22 08/29/23 10-325] Losartan Potassium [Cozaar] 100 mg PO DAILY 05/19/22 08/29/23 Acetaminophen Tab [Tylenol] 500 mg PO Q6H PRN 05/15/23 08/29/23 Ascorbic Acid [Vitamin C] 1,000 mg PO DAILY 05/15/23 08/29/23 Cholecalciferol [Vitamin D3 (25 25 mcg PO DAILY 05/15/23 08/29/23 Mcg = 1000 Iu)] Cyanocobalamin [Vitamin B-12] 500 mcg PO DAILY 05/15/23 08/29/23 Gabapentin [Neurontin] 300 mg PO HS 05/15/23 08/29/23 Naproxen Sodium [Aleve] 220 mg PO BID PRN 05/15/23 08/29/23 cloNIDine HCL 0.1 mg PO TID PRN 05/15/23 08/29/23 amLODIPine [Norvasc] 5 mg PO DAILY 08/29/23 08/29/23 Previous Rx's Medication Instructions Recorded Nitroglycerin Sl Tabs [Nitrostat] 0.4 mg SUBLINGUAL Q5M PRN #20 tab 05/17/23 Allergies Allergy/AdvReac Type Severity Reaction Status Date / Time No Known Allergies Allergy Verified 08/29/23 18:00 Review of Systems ROS Statement: Those systems with pertinent positive or pertinent negative responses have been documented in the HPI. ROS Other: All systems not noted in ROS Statement are negative. EKG Findings - EKG Comments: EKG Findings:: EKG is sinus 62 WI 163 QRS 78 QTc 369 - EKG Results: EKG: interpreted by [facility] Past Medical History Past Medical History: Chest Pain / Angina, GERD/Reflux, Hypertension, Pneumonia Additional Past Medical History / Comment(s): left ankle pain, DIVERTICULAR DISEASE,ARTHRITIS, Vertigo History of Any Multi-Drug Resistant Organisms: None Reported Past Surgical History: Appendectomy, Bladder Surgery, Heart Catheterization, Hysterectomy Additional Past Surgical History / Comment(s): BOWEL RESECTION, UMB HERNIA REPAIR, MILLER CATARACTS,COLONOSCOPY Past Anesthesia/Blood Transfusion Reactions: Motion Sickness Past Psychological History: Anxiety Smoking Status: Never smoker Past Alcohol Use History: None Reported Past Drug Use History: None Reported - Past Family History Mother Family Medical History: CVA/TIA, Dementia, Hypertension, Seizure Disorder Additional Family Medical History / Comment(s): AT AGE 83 Father Family Medical History: Diabetes Mellitus, Hypertension Additional Family Medical History / Comment(s): HERNIA General Exam Limitations: no limitations General appearance: alert, in no apparent distress Head exam: Present: atraumatic, normocephalic, normal inspection Eye exam: Present: normal appearance, PERRL, EOMI. Absent: scleral icterus, conjunctival injection, periorbital swelling ENT exam: Present: normal exam, mucous membranes moist Neck exam: Present: normal inspection. Absent: tenderness, meningismus, lymphadenopathy Respiratory exam: Present: normal lung sounds bilaterally. Absent: respiratory distress, wheezes, rales, rhonchi, stridor Cardiovascular Exam: Present: regular rate, normal rhythm, normal heart sounds. Absent: systolic murmur, diastolic murmur, rubs, gallop, clicks GI/Abdominal exam: Present: soft, normal bowel sounds. Absent: distended, tenderness, guarding, rebound, rigid Extremities exam: Present: normal inspection, full ROM, normal capillary refill. Absent: tenderness, pedal edema, joint swelling, calf tenderness Back exam: Present: normal inspection Neurological exam: Present: alert, oriented X3, CN II-XII intact Psychiatric exam: Present: normal affect, normal mood Skin exam: Present: warm, dry, intact, normal color. Absent: rash Course Vital Signs 09/05/23 09/05/23 09/06/23 21:27 22:00 00:09 Temperature 98.8 F Pulse Rate 67 64 70 Respiratory 18 16 18 Rate Blood Pressure 151/82 153/82 134/62 O2 Sat by Pulse 97 94 L 97 Oximetry - Reevaluation(s) Reevaluation #1: Medical records reviewed Reevaluation #2: Patient symptoms are unchanged Reevaluation #3: Patient symptoms are improved patient informed of results and questions answered Reevaluation #4: Was pt. sent in by a medical professional or institution (, JOANNE, CHEMISTRY TECHNOLOGIST, urgent care, hospital, or residential...) When possible be specific @ -no Did you speak to anyone other than the patient for history (EMS, parent, family, police, friend...)? What history was obtained from this source @ -no Did you review nursing and triage notes (agree or disagree)? Why? @ -agree Are old charts reviewed (outside hosp., previous admission, EMS record, old EKG, old radiological studies, urgent care reports/EKG's, residential records)? Report findings @ -yes Differential Diagnosis (chest pain, altered mental status, abdominal pain women, abdominal pain men, vaginal bleeding, weakness, fever, dyspnea, syncope, headache, dizziness, GI bleed, back pain, seizure, CVA, palpatations, mental health, musculoskeletal)? @ -prior EKG interpreted by me (3pts min.). @ -yes X-rays interpreted by me (1pt min.). @ -yes negative for acute disease CT interpreted by me (1pt min.). @ -no U/S interpreted by me (1pt. min.). @ -no What testing was considered but not performed or refused? (CT, X-rays, U/S, labs)? Why? @ -none What meds were considered but not given or refused? Why? @ -none Did you discuss the management of the patient with other professionals (professionals i.e. JOANNE Bocanegra, CHEMISTRY TECHNOLOGIST, lab, RT, psych nurse, social services director, insurance verify rep, teacher, wildlife conservation officer, case packer and sealer)? Give summary @ -no Was smoking cessation discussed for >3mins.? @ -no Was critical care preformed (if so, how long)? @ -no Were there social determinants of health that impacted care today? How? (Homelessness, low income, unemployed, alcoholism, drug addiction, transportation, low edu. Level, literacy, decrease access to med. care, alf, rehab)? @ -none Was there de-escalation of care discussed even if they declined (Discuss DNR or withdrawal of care, Hospice)? DNR status @ -no What co-morbidities impacted this encounter? (DM, HTN, Smoking, COPD, CAD, Cancer, CVA, ARF, Chemo, Hep., AIDS, mental health diagnosis, sleep apnea, morbid obesity)? @ -none Was patient admitted / discharged? Hospital course, mention meds given and route, prescriptions, significant lab abnormalities, going to OR and other pertinent info. @ - 82 female to ER with chest pain, atypical chest pain with normal testing here in the ER, patient feels well can be discharged home Discharge Undiagnosed new problem with uncertain prognosis? @ -no Drug Therapy requiring intensive monitoring for toxicity (Heparin, Nitro, Insulin, Cardizem)? @ -no Were any procedures done? @ -no Diagnosis/symptom? @ - Acute, or Chronic, or Acute on Chronic? @ -Acute Uncomplicated (without systemic symptoms) or Complicated (systemic symptoms)? @ -Complicated Side effects of treatment? @ -no Exacerbation, Progression, or Severe Exacerbation? @ -exacerbation Poses a threat to life or bodily function? How? (Chest pain, USA, [place], pneumonia, PE, COPD, DKA, ARF, appy, cholecystitis, CVA, Diverticulitis, Homicidal, Suicidal, threat to staff... and all critical care pts) @ -yes seems of age chest pain 52 Reevaluation #5: Differential Chest Pain: Stable Angina, Unstable Angina, STEMI, NSTEMI Aortic Dissection, Pneumothorax, Musculoskeletal, Esophageal Spasm GERD, Cholecystitis, Pancreatitis, Zoster, this is not meant to be an all-inclusive list. Chest Pain MDM - MDM 82 female to ER with chest pain, atypical chest pain with normal testing here in the ER, patient feels well can be discharged home Disposition Clinical Impression: Chest pain, Atypical chest pain Disposition: HOME SELF-CARE Condition: Fair Instructions (If sedation given, give patient instructions): Chest Pain (ED) Is patient prescribed a controlled substance at d/c from ED?: No Referrals: Racquel Aggarwal DO [Primary Care Provider] - 1-2 days Time of Disposition: 23:45
[2023-09-05 22:28] LABS: Basophils # (A) 0.1 k/uL (0-0.2); Basophils % (A) 1 %; Eosinophils # (A) 0.6 k/uL (0-0.7); Eosinophils % (A) 5 %; HCT 38.7 % (34.0-46.0); HGB 12.5 gm/dL (11.4-16.0); Lymphocytes # (A) 2.8 k/uL (1.0-4.8); Lymphocytes % (A) 23 %; MCH 29.9 pg (25.0-35.0); MCHC 32.3 g/dL (31.0-37.0); MCV 92.4 fL (80.0-100.0); Mean Platelet Volume 7.6; Monocytes # (A) 0.7 k/uL (0-1.0); Monocytes % (A) 6 %; Neutrophils # (A) 7.7 k/uL (1.3-7.7); Neutrophils % (A) 63 %; Platelet Count 297 k/uL (150-450); RBC 4.19 m/uL (3.80-5.40); RDW 13.4 % (11.5-15.5); WBC 12.2 k/uL (3.8-10.6)
[2023-09-05 22:31] LABS: INR 0.9 (<1.2); Partial Thromboplastin Time 23.9 sec (22.0-30.0); Prothrombin Time 10.4 sec (10.0-12.5)
[2023-09-05 22:36] LABS: ALT 14 U/L (4-34); AST 24 U/L (14-36); African American GFR (CKD) 48 (>60 ml/min/1.73 sqM); Albumin 3.9 g/dL (3.5-5.0); Alkaline Phosphatase 111 U/L (38-126); Anion Gap 12 mmol/L; Blood Urea Nitrogen 28 mg/dL (7-17); Calcium 8.5 mg/dL (8.4-10.2); Carbon Dioxide 17 mmol/L (22-30); Chloride 108 mmol/L (98-107); Glucose 115 mg/dL (74-99); Magnesium 1.9 mg/dL (1.6-2.3); Non-African American GFR(CKD) 42 (>60 ml/min/1.73 sqM); Phosphorus 5.2 mg/dL (2.5-4.5); Potassium 3.8 mmol/L (3.5-5.1); Sodium 137 mmol/L (137-145); Total Bilirubin 0.4 mg/dL (0.2-1.3); Total Protein 6.9 g/dL (6.3-8.2)
[2023-09-05] MEDS: SODIUM CHLORIDE 0.9% 1,000 ML IV STA (22:37)
[2023-09-05 22:43] LABS: NT-Pro-B-Type Natriuretic Pept 413 pg/mL
[2023-09-06 00:10] VITALS: BP 134/62; PULSE 70; RESP 18
--- NOTE | 2023-09-06 11:13 | XR ---
EXAM: XR Chest, 2 Views CLINICAL HISTORY: ITS.REASON XR Reason: Weakness TECHNIQUE: Frontal and lateral views of the chest. COMPARISON: No relevant prior studies available. FINDINGS: Lungs: Retrocardiac opacity on the lateral view, concerning for LEFT lower lobe pneumonia. Pleural space: Unremarkable. No pneumothorax. Heart: Unremarkable. No cardiomegaly. Mediastinum: Unremarkable. Normal mediastinal contour. Bones/joints: Unremarkable. No acute fracture. IMPRESSION: Retrocardiac opacity on the lateral view, concerning for LEFT lower lobe pneumonia. Cardiomegaly.
== END 2023-09-06 00:28 | disposition home or self-care (01) ==
LOC: EC 21:20
DX: R07.89 Other chest pain (principal)
CPT/HCPCS: 36415; 71046; 80053; 83735; 83880; 84100; 84484; 85025; 85610; 85730; 93005; 96360; 96361; 99285

== ENCOUNTER → 2023-09-15 | Outpatient (CLI) | payer MEDICARE ==
--- NOTE | 2023-09-15 10:38 | MM ---
Reason for Exam: Clinical finding. Last screening mammogram was performed 9 month(s) ago. Patient History: Menarche at age 15. First Full-Term at age 25. Left ovary removed at age 58. Right ovary removed at age 58. Hysterectomy at age 58. Postmenopausal. 2003, Benign Excisional Biopsy on the left side. 12/25/2013, Benign Core Biopsy on the left side. Risk Values: Irena 5 year model risk: 1.3%. NCI Lifetime model risk: 2.1%. Prior Study Comparison: 11/09/2007 Bilateral Screening Mammogram, [facility]. 04/15/2009 Bilateral Screening Mammogram, [facility]. 07/02/2010 Bilateral Screening Mammogram, [facility]. 12/07/2013 Bilateral Screening Mammogram, [facility]. 12/12/2013 Left Diagnostic Mammogram, [facility]. 08/10/2014 Left Diagnostic Mammogram, [facility]. 12/03/2014 Bilateral Screening Mammogram, [facility] 11/05/2015 Bilateral Diagnostic Mammogram, [facility]. 04/18/2018 Bilateral Screening Mammogram, [facility]. 08/28/2019 Bilateral Screening Mammogram, [facility]. 09/20/2019 Left Diagnostic Mammogram, [facility]. 05/10/2020 Left Diagnostic Mammogram, [facility]. 11/22/2020 Bilateral Screening Mammogram, [facility]. 12/21/2022 Bilateral MG 3D screening mammo w/cad, [facility]. Tissue Density: There are scattered areas of fibroglandular density. Findings: Analyzed By CAD. Chronic nodularity on the right. 2 marker clips left breast from prior biopsies. The upper outer quadrant with its again noted to be adjacent to unchanged grouped microcalcifications and associated vague density. Surgical clips at the left axilla. No significant change from prior exams. Overall Assessment: Benign, BI-RAD 2 Management: Screening Mammogram of both breasts in 1 year. Further clinical management of patient's bilateral breast pain. Results were given to the patient verbally at the time of exam. Patient should continue monthly self-breast exams. A clinical breast exam by your physician is recommended on an annual basis. This exam should not preclude additional follow-up of suspicious palpable abnormalities. Note on Irena scores and lifetime risk: 1. A Irena score greater than 3% is considered moderate risk. If this is the case, consider specialist referral to assess eligibility for a risk reducing agent. 2. If overall lifetime risk for the development of breast cancer is 20% or higher, the patient may qualify for future screening with alternating mammogram and breast MRI. Electronically signed and approved by: Bre Park M.D. Radiologist
== END | disposition home or self-care (01) ==
LOC: RADMAMWWP 10:03
PROVIDERS: ATTEND Family Medicine
DX: R92.323 Mammographic fibroglandular density, bilateral breasts (principal); N64.4 Mastodynia; Z78.0 Asymptomatic menopausal state
CPT/HCPCS: 77066; G0279; 77062

== ENCOUNTER 2023-12-24 10:33 | Inpatient (IN) | payer MEDICARE ==
--- NOTE | 2023-12-24 11:22 | ED ---
Lower Extremity Injury HPI - General Chief Complaint: Extremity Injury, Lower Stated Complaint: L knee sore Time Seen by Provider: 12/24/23 10:51 Source: patient, RN notes reviewed Mode of arrival: wheelchair Limitations: no limitations - History of Present Illness Initial Comments: 83-year-old female presents to the emergency department with chief complaint of left knee pain. She reports that a week and a half ago she had a scab that progressively became red and swollen. She received antibiotics for which she is not sure the name of and shortly after developed leg weakness so her physician started her on amoxicillin left knee pain has progressively gotten worse with redness extending into the inner thigh which is associated with nausea, vomiti ng, and fever. She reports full range of motion to left knee, denies shortness of breath, chest pain, and syncope. - Related Data Home Medications Medication Instructions Recorded Confirmed HYDROcodone/APAP 10-325MG [[place] 1 tab PO TID PRN 05/19/22 12/24/23 10-325] Losartan Potassium [Cozaar] 100 mg PO DAILY 05/19/22 12/24/23 amLODIPine [Norvasc] 5 mg PO DAILY 08/29/23 12/24/23 Amoxic-Pot Clav 875-125Mg 1 tab PO BID 12/24/23 12/24/23 [Augmentin 875-125] Allergies Allergy/AdvReac Type Severity Reaction Status Date / Time cephalexin [From Keflex] AdvReac Unknown Verified 12/24/23 12:53 Review of Systems ROS Statement: Those systems with pertinent positive or pertinent negative responses have been documented in the HPI. ROS Other: All systems not noted in ROS Statement are negative. Past Medical History Past Medical History: Chest Pain / Angina, GERD/Reflux, Hypertension, Pneumonia Additional Past Medical History / Comment(s): left ankle pain, DIVERTICULAR DISEASE,ARTHRITIS, Vertigo History of Any Multi-Drug Resistant Organisms: None Reported Past Surgical History: Appendectomy, Bladder Surgery, Heart Catheterization, Hysterectomy Additional Past Surgical History / Comment(s): BOWEL RESECTION, UMB HERNIA REPAIR, MILLER CATARACTS,COLONOSCOPY Past Anesthesia/Blood Transfusion Reactions: Motion Sickness Past Psychological History: Anxiety Smoking Status: Never smoker Past Alcohol Use History: None Reported Past Drug Use History: None Reported - Past Family History Mother Family Medical History: CVA/TIA, Dementia, Hypertension, Seizure Disorder Additional Family Medical History / Comment(s): AT AGE 83 Father Family Medical History: Diabetes Mellitus, Hypertension Additional Family Medical History / Comment(s): HERNIA General Exam Limitations: no limitations Left Upper Leg exam: Present: tenderness, swelling, erythema Knee exam: Present: tenderness, swelling, erythema Lower Leg exam: Present: full ROM Ankle exam: Present: normal inspection Foot/Toe exam: Present: normal inspection Course Vital Signs 12/24/23 12/24/23 12/24/23 10:36 11:23 12:14 Temperature 99.1 F 98.6 F Pulse Rate 110 H 89 77 Respiratory 16 20 20 Rate Blood Pressure 138/92 134/81 134/61 O2 Sat by Pulse 96 96 95 Oximetry Medical Decision Making - Medical Decision Making Was pt. sent in by a medical professional or institution (, PA, SERVICE TECHNICIAN COPIER, urgent c are, hospital, or [facility]...) When possible be specific @ -No Did you speak to anyone other than the patient for history (EMS, parent, family, police, friend...)? What history was obtained from this source @ -No Did you review nursing and triage notes (agree or disagree)? Why? @ -I reviewed and agree with nursing and triage notes Were old charts reviewed (outside hosp., previous admission, EMS record, old EKG, old radiological studies, urgent care reports/EKG's, [facility] records)? Report findings @ -No old charts were reviewed Differential Diagnosis (chest pain, altered mental status, abdominal pain women, abdominal pain men, vaginal bleeding, weakness, fever, dyspnea, syncope, h eadache, dizziness, GI bleed, back pain, seizure, CVA, palpatations, mental health, musculoskeletal)? @ -Cellulitis, septic joint, erysipelas, sepsis EKG interpreted by me (3pts min.). @ -[None none X-rays interpreted by me (1pt min.). @ -X-ray left knee showing soft tissue swelling mild osteoarthritis CT interpreted by me (1pt min.). @ -None done U/S interpreted by me (1pt. min.). @ -None done What testing was considered but not performed or refused? (CT, X-rays, U/S, labs)? Why? @ -None What meds were considered but not given or refused? Why? @ -None Did you discuss the management of the patient with other professionals (professionals i.e. , PA, SERVICE TECHNICIAN COPIER, lab, RT, psych nurse, social media marketing specialist, health plan specialist, teacher, lead security officer, supportive employment case manager)? Give summary @ -EMH for admission Was smoking cessation discussed for >3mins.? @ -No Was critical care preformed (if so, how long)? @ -No Were there social determinants of health that impacted care today? How? (Homelessness, low income, unemployed, alcoholism, drug addiction, transportation, low edu. Level, literacy, decrease access to med. care, long term, rehab)? @ -No Was there de-escalation of care discussed even if they declined (Discuss DNR or withdrawal of care, Hospice)? DNR status @ -No What co-morbidities impacted this encounter? (DM, HTN, Smoking, COPD, CAD, Cancer, CVA, ARF, Chemo, Hep., AIDS, mental health diagnosis, sleep apnea, morbi d obesity)? @ -None Was patient admitted / discharged? Hospital course, mention meds given and route , prescriptions, significant lab abnormalities, going to OR and other pertinent info. @ -Admitted patient found to have significant leukocytosis, elevated CRP. Patient does have full range of motion of the joint with minimal discomfort. [place] less likely to be septic joint. Patient was started on vancomycin patient will need ID consult patient had repeat laboratory studies and further management Undiagnosed new problem with uncertain prognosis? @ -No Drug Therapy requiring intensive monitoring for toxicity (Heparin, Nitro, Insulin, Cardizem)? @ -No Were any procedures done? @ -No Diagnosis/symptom? @ -Left leg cellulitis, failure of outpatient treatment Acute, or Chronic, or Acute on Chronic? @ -Acute Uncomplicated (without systemic symptoms) or Complicated (systemic symptoms)? @ -Complicated Side effects of treatment? @ -No Exacerbation, Progression, or Severe Exacerbation? @ -No Poses a threat to life or bodily function? How? (Chest pain, [place], [place], pneumonia, PE, COPD, DKA, ARF, appy, cholecystitis, CVA, Diverticulitis, Homicidal, Suicidal, threat to staff... and all critical care pts) @ -Yes possible sepsis endorgan failure - Lab Data Result diagrams: 12/24/23 11:21 12/24/23 11:21 Lab Results 12/24/23 12/24/23 12/24/23 Range/Units 11:21 11:21 11:21 WBC 25.6 H (3.8-10.6) k/uL RBC 4.55 (3.80-5.40) m/uL Hgb 14.0 (11.4-16.0) gm/dL Hct 40.0 (34.0-46.0) % MCV 87.9 (80.0-100.0) fL MCH 30.7 (25.0-35.0) pg MCHC 34.9 (31.0-37.0) g/dL RDW 13.7 (11.5-15.5) % Plt Count 237 (150-450) k/uL MPV 7.6 Neutrophils % 89 % Lymphocytes % 5 % Monocytes % 4 % Eosinophils % 0 % Basophils % 0 % Neutrophils # 22.8 H (1.3-7.7) k/uL Lymphocytes # 1.3 (1.0-4.8) k/uL Monocytes # 1.0 (0-1.0) k/uL Eosinophils # 0.0 (0-0.7) k/uL Basophils # 0.0 (0-0.2) k/uL Sodium 137 (137-145) mmol/L Potassium 3.7 (3.5-5.1) mmol/L Chloride 107 (98-107) mmol/L Carbon Dioxide 20 L (22-30) mmol/L Anion Gap 10 mmol/L BUN 26 H (7-17) mg/dL Creatinine 0.92 (0.52-1.04) mg/dL Est GFR (CKD-EPI)AfAm 68 (>60 ml/min/1.73 sqM) Est GFR (CKD-EPI)NonAf 59 (>60 ml/min/1.73 sqM) Glucose 130 H (74-99) mg/dL Plasma Lactic Acid Sachin 1.5 (0.7-2.0) mmol/L Calcium 9.1 (8.4-10.2) mg/dL Total Bilirubin 0.8 (0.2-1.3) mg/dL AST 22 (14-36) U/L ALT 17 (4-34) U/L Alkaline Phosphatase 117 (38-126) U/L C-Reactive Protein 42.8 H (<1.0) mg/dL Total Protein 6.8 (6.3-8.2) g/dL Albumin 3.5 (3.5-5.0) g/dL Disposition Clinical Impression: Cellulitis of left knee, Failure of outpatient treatment Disposition: ADMITTED IP TO THIS HOSP Condition: Fair Referrals: Racquel Aggarwal DO [Primary Care Provider] - 1-2 days Time of Disposition: 13:14
[2023-12-24] MEDS: HYDROcodone/APAP 10-325MG 1 EACH TAB PO ONE (11:27)
[2023-12-24 11:41] LABS: Basophils % (A) 0 %; Eosinophils % (A) 0 %; Lymphocytes # (A) 1.3 k/uL (1.0-4.8); Lymphocytes % (A) 5 %; MCH 30.7 pg (25.0-35.0); MCHC 34.9 g/dL (31.0-37.0); MCV 87.9 fL (80.0-100.0); Mean Platelet Volume 7.6; Monocytes % (A) 4 %; Neutrophils # (A) 22.8 k/uL (1.3-7.7); Neutrophils % (A) 89 %; Platelet Count 237 k/uL (150-450); RBC 4.55 m/uL (3.80-5.40); RDW 13.7 % (11.5-15.5); WBC 25.6 k/uL (3.8-10.6)
--- NOTE | 2023-12-24 11:58 | XR ---
EXAMINATION TYPE: XR knee complete LT DATE OF EXAM: 12/24/2023 11:41 AM INDICATION: Patient age:Female; 83 years old; Reason for study: Knee pain; PH[facility]. COMPARISON: None. TECHNIQUE: The Left knee(s) was examined in Frontal, lateral and oblique projections. FINDINGS: Tricompartmental joint space narrowing with sclerosis and marginal osteophytosis. Most pr onounced involving the lateral tibiofemoral joint space. No acute fracture or dislocation. No joint e ffusion. Mild anterior knee soft tissue edema. No soft tissue gas. No osseous erosion. No radiopaque foreign body. IMPRESSION: 1. No acute osseous pathology. 2. Mild to moderate tricompartmental osteoarthritic changes. 3. Anterior knee soft tissue edema. [facility], , 12/24/2023 11:55 AM
[2023-12-24 12:06] LABS: ALT 17 U/L (4-34); AST 22 U/L (14-36); African American GFR (CKD) 68 (>60 ml/min/1.73 sqM); Albumin 3.5 g/dL (3.5-5.0); Alkaline Phosphatase 117 U/L (38-126); Anion Gap 10 mmol/L; Blood Urea Nitrogen 26 mg/dL (7-17); Calcium 9.1 mg/dL (8.4-10.2); Carbon Dioxide 20 mmol/L (22-30); Chloride 107 mmol/L (98-107); Glucose 130 mg/dL (74-99); Non-African American GFR(CKD) 59 (>60 ml/min/1.73 sqM); Potassium 3.7 mmol/L (3.5-5.1); Sodium 137 mmol/L (137-145); Total Bilirubin 0.8 mg/dL (0.2-1.3); Total Protein 6.8 g/dL (6.3-8.2)
[2023-12-24 13:01] LABS: C Reactive Protein 42.8 mg/dL (<1.0)
[2023-12-24] MEDS ORDERED: VANCOMYCIN 1,000 MG in SODIUM CHLORIDE 0.9% 250 ML IVPB STA (13:06)
[2023-12-24] MEDS ORDERED: VANCOMYCIN IV PER PHARMACY 1 EACH MISC MISCELLANE PRN ×2 (13:10→13:12)
[2023-12-24] MEDS ORDERED: HYDROmorphone 1 MG/ML 1 ML SYRINGE IVP PRN (13:14)
[2023-12-24] MEDS ORDERED: NALOXONE 0.4 MG/ML 1 ML VIAL IV PRN (13:14)
[2023-12-24] MEDS ORDERED: ONDANSETRON 4 MG/2 ML VIAL IVP PRN (13:14)
[2023-12-24] MEDS: HYDROmorphone 0.5 MG/0.5 ML SYRINGE IVP STA (13:57)
[2023-12-24] MEDS: VANCOMYCIN 1,500 MG in SODIUM CHLORIDE 0.9% 500 ML 500 ML IVPB ONE (14:02)
[2023-12-24] MEDS: HYDROmorphone 0.5 MG/0.5 ML SYRINGE IVP PRN (18:52)
--- NOTE | 2023-12-24 23:31 | P.HPIM ---
History of Present Illness H&P Date: 12/24/23 Chief Complaint: Fall 83-year-old female presents to the emergency department with chief complaint of left knee pain. She reports that a week and a half ago she had a scab that progressively became red and swollen. She received antibiotics for which she is not sure the name of and shortly after developed leg weakness so her physician started her on amoxicillin left knee pain has progressively gotten worse with redness extending into the inner thigh which is associated with nausea, vomiting, and fever. She reports full range of motion to left knee, denies shortness of breath, chest pain, and syncope. Admitted patient found to have significant leukocytosis, elevated CRP. Patient does have full range of motion of the joint with minimal discomfort. [place] less likely to be septic joint. Patient was started on vancomycin patient will need ID consult patient had repeat laboratory studies and further management Review of Systems Constitutional: Denies chills, Denies fever Cardiovascular: Denies chest pain, Denies shortness of breath Gastrointestinal: Denies abdominal pain Past Medical History Past Medical History: Chest Pain / Angina, GERD/Reflux, Hypertension, Pneumonia Additional Past Medical History / Comment(s): left ankle pain, DIVERTICULAR DISEASE,ARTHRITIS, Vertigo History of Any Multi-Drug Resistant Organisms: None Reported Past Surgical History: Appendectomy, Bladder Surgery, Heart Catheterization, Hysterectomy Additional Past Surgical History / Comment(s): BOWEL RESECTION, UMB HERNIA REPAIR, MILLER CATARACTS,COLONOSCOPY Past Anesthesia/Blood Transfusion Reactions: Motion Sickness Past Psychological History: Anxiety Smoking Status: Never smoker Past Alcohol Use History: None Reported Past Drug Use History: None Reported - Past Family History Mother Family Medical History: CVA/TIA, Dementia, Hypertension, Seizure Disorder Additional Family Medical History / Comment(s): AT AGE 83 Father Family Medical History: Diabetes Mellitus, Hypertension Additional Family Medical History / Comment(s): HERNIA Medications and Allergies Home Medications Medication Instructions Recorded Confirmed Type HYDROcodone/APAP 10-325MG [[place] 1 tab PO TID PRN 05/19/22 12/24/23 History 10-325] Losartan Potassium [Cozaar] 100 mg PO DAILY 05/19/22 12/24/23 History amLODIPine [Norvasc] 5 mg PO DAILY 08/29/23 12/24/23 History Amoxic-Pot Clav 875-125Mg 1 tab PO BID 12/24/23 12/24/23 History [Augmentin 875-125] Allergies Allergy/AdvReac Type Severity Reaction Status Date / Time cephalexin [From Keflex] AdvReac Unknown Verified 12/24/23 12:53 Physical Exam Vitals: Vital Signs Temp Pulse Resp BP Pulse Ox 12/24/23 12:14 77 20 134/61 95 12/24/23 11:23 98.6 F 89 20 134/81 96 12/24/23 10:36 99.1 F 110 H 16 138/92 96 Intake and Output 12/23/23 12/24/23 12/24/23 22:59 06:59 14:59 Other: Weight 80.739 kg - Constitutional General appearance: no acute distress - EENT Eyes: PERRLA - Neck Neck: no lymphadenopathy, normal ROM Carotids: negative: bruit present Thyroid: bilateral: normal size - Respiratory Respiratory: bilateral: CTA, rhonchi - Cardiovascular Rhythm: regular Heart sounds: normal: S1, S2 - Gastrointestinal General gastrointestinal: normal bowel sounds - Integumentary Integumentary: cellulitis, pale - Neurologic Neurologic: CNII-XII intact - Musculoskeletal Musculoskeletal: strength equal bilaterally - Psychiatric Psychiatric: A&O x's 3 Results CBC & Chem 7: 12/24/23 11:21 12/24/23 11:21 Labs: Abnormal Lab Results - Last 24 Hours (Table) 12/24/23 12/24/23 Range/Units 11:21 11:21 WBC 25.6 H (3.8-10.6) k/uL Neutrophils # 22.8 H (1.3-7.7) k/uL Carbon Dioxide 20 L (22-30) mmol/L BUN 26 H (7-17) mg/dL Glucose 130 H (74-99) mg/dL C-Reactive Protein 42.8 H (<1.0) mg/dL Assessment and Plan Assessment: 1. Cellulitis LLE; failing out patient treatment -- WBC markedly elevated upon presentation to ED --patient has been initiated in IV Vancomycin with pharmacy dosing service - will monitor CBC, CRP and procalcitonin -- will consult ID for further recommendations 2. Leukocytosis; likely related to cellulitis; will repeat and trend -- blood cultures ordered and pending 3. Hypertension; takes Norvasc and losartan; will resume DVT Prophylaxis; SCDs Code Status; Full Code
[2023-12-25 07:08] LABS: African American GFR (CKD) 89 (>60 ml/min/1.73 sqM); Anion Gap 7 mmol/L; Blood Urea Nitrogen 25 mg/dL (7-17); Calcium 8.4 mg/dL (8.4-10.2); Carbon Dioxide 20 mmol/L (22-30); Chloride 106 mmol/L (98-107); Glucose 104 mg/dL (74-99); Non-African American GFR(CKD) 77 (>60 ml/min/1.73 sqM); Potassium 3.4 mmol/L (3.5-5.1); Sodium 133 mmol/L (137-145)
[2023-12-25] MEDS: HYDROcodone/APAP 10-325MG 1 EACH TAB PO PRN (08:14)
[2023-12-25] MEDS: amLODIPine 5 MG TAB PO SCH (08:15)
[2023-12-25] MEDS: LOSARTAN 50 MG TAB PO SCH (08:15)
[2023-12-25 09:00] LABS: HCT 34.2 % (37.2-46.3); HGB 11.6 g/dL (12.0-15.0); MCH 28.7 pg (27.0-32.0); MCHC 33.9 g/dL (32.0-37.0); MCV 84.7 FL (80.0-97.0); Mean Platelet Volume 9.1 FL (9.5-12.2); NRBC Per 100 WBC 0 X 10*3/uL (0.00-0.01); Platelet Count 252 X 10*3/uL (140-440); RBC 4.04 X 10*6/uL (4.10-5.20); WBC 23.73 X 10*3/uL (4.50-10.00)
--- NOTE | 2023-12-25 09:29 | P.CONS ---
History of Present Illness - Reason for Consult Consult date: 12/24/23 Cellulitis Requesting physician: Elliott Mayo - Chief Complaint Right knee pain swelling redness x few days - History of Present Illness Patient is a 83-year-old female with a past medical history significant for hypertension reflux angina diverticular disease patient mention she noticed to have a small boil on the left knee area about a week and a half ago which she tried to squeeze out subsequent developing a scab apparently has been evaluated outpatient setting and has been treated with an antibiotic however the patient started having increasing swelling and redness to the left knee area day before presentation to the hospital patient was complaining of pain to be sharp almost 10 out of 10 worse with weightbearing with associated swelling and redness did not have any open wound or any drainage patient on presentation to hospital did have a low-grade fever of 99.1 F patient was mildly tachycardic but not hypotensive or hypoxic patient did have a white count of 25.6 with a left shift creatinine has been normal her liver enzymes are normal CRP is 42.8 patient did have knee x-ray no acute bony abnormality anterior knee soft tissue edema patient was started on vancomycin infectious disease was consulted for further management of antibiotic therapy Review of Systems Positive point and negatives has been mentioned in the HPI, complete review of systems was performed and all other systems are negative Past Medical History Past Medical History: Chest Pain / Angina, GERD/Reflux, Hypertension, Pneumonia Additional Past Medical History / Comment(s): left ankle pain, DIVERTICULAR DISEASE,ARTHRITIS, Vertigo History of Any Multi-Drug Resistant Organisms: None Reported Past Surgical History: Appendectomy, Bladder Surgery, Heart Catheterization, Hysterectomy Additional Past Surgical History / Comment(s): BOWEL RESECTION, UMB HERNIA REPAIR, MILLER CATARACTS,COLONOSCOPY Past Anesthesia/Blood Transfusion Reactions: Motion Sickness Past Psychological History: Anxiety Smoking Status: Never smoker Past Alcohol Use History: None Reported Past Drug Use History: None Reported - Past Family History Mother Family Medical History: CVA/TIA, Dementia, Hypertension, Seizure Disorder Additional Family Medical History / Comment(s): AT AGE 83 Father Family Medical History: Diabetes Mellitus, Hypertension Additional Family Medical History / Comment(s): HERNIA Medications and Allergies Home Medications Medication Instructions Recorded Confirmed Type HYDROcodone/APAP 10-325MG [[place] 1 tab PO TID PRN 05/19/22 12/24/23 History 10-325] Losartan Potassium [Cozaar] 100 mg PO DAILY 05/19/22 12/24/23 History amLODIPine [Norvasc] 5 mg PO DAILY 08/29/23 12/24/23 History Amoxic-Pot Clav 875-125Mg 1 tab PO BID 12/24/23 12/24/23 History [Augmentin 875-125] Allergies Allergy/AdvReac Type Severity Reaction Status Date / Time cephalexin [From Keflex] AdvReac Unknown Verified 12/24/23 12:53 Physical Exam Vitals: Vital Signs Temp Pulse Resp BP Pulse Ox 12/24/23 13:55 98.4 F 79 18 130/79 95 12/24/23 12:14 77 20 134/61 95 12/24/23 11:23 98.6 F 89 20 134/81 96 12/24/23 10:36 99.1 F 110 H 16 138/92 96 Intake and Output 12/23/23 12/24/23 12/24/23 22:59 06:59 14:59 Other: Weight 80.739 kg GENERAL DESCRIPTION: Elderly female lying in bed, no distress. No tachypnea or accessory muscle of respiration use. HEENT: Shows Pallor , no scleral icterus. Oral mucous membrane is dry. No pharyngeal erythema or thrush NECK: Trachea central, no thyromegaly. LUNGS: Unlabored breathing. Clear to auscultation anteriorly. No wheeze or crackle. HEART: S1, S2, regular rate and rhythm. No loud murmur ABDOMEN: Soft, no tenderness , guarding or rigidity, no organomegaly EXTREMITIES: Right knee did have diffuse swelling redness mostly marked the prepatellar area which is warm and tender to touch no drainage SKIN: No rash, no masses palpable. NEUROLOGICAL: The patient is awake, alert, oriented x3, mood and affect normal. Results CBC & Chem 7: 12/25/23 05:24 12/25/23 05:24 Labs: Abnormal Lab Results - Last 24 Hours (Table) 12/24/23 12/24/23 Range/Units 11:21 11:21 WBC 25.6 H (3.8-10.6) k/uL Neutrophils # 22.8 H (1.3-7.7) k/uL Carbon Dioxide 20 L (22-30) mmol/L BUN 26 H (7-17) mg/dL Glucose 130 H (74-99) mg/dL C-Reactive Protein 42.8 H (<1.0) mg/dL Assessment and Plan (1) Septic prepatellar bursitis of right knee Current Visit: Yes Status: Acute Code(s): M71.161 - OTHER INFECTIVE BURSITIS, RIGHT KNEE SNOMED Code(s): 9064669088322632 (2) Allergy to cephalosporin Current Visit: Yes Status: Acute Code(s): Z88.1 - ALLERGY STATUS TO OTHER ANTIBIOTIC AGENTS SNOMED Code(s): 849809823 (3) Cellulitis of left knee Current Visit: Yes Status: Acute Code(s): L03.116 - CELLULITIS OF LEFT LOWER LIMB SNOMED Code(s): 35733140276734090 (4) Failure of outpatient treatment Current Visit: Yes Status: Acute Code(s): Z78.9 - OTHER SPECIFIED HEALTH STATUS SNOMED Code(s): 812780595 Plan: 1patient presented to hospital with left knee pain swelling and redness suspicious for septic prepatellar bursitis failing outpatient oral antibiotic therapy. 2patient with cephalexin allergy that will limit the number of antibiotics safe to use. 3nursing staff has been advised to marjorie the area of redness. 4vancomycin pharmacy to dose with a target of 15 will be continued and clinical course monitor closely if no improvement may benefit from Ortho evaluation for possible I&D of the septic bursa. We will follow on clinical condition and cultures to further adjust medication if needed Thank you for this consultation we will follow the patient along with you Dictation was produced using [employer] dictation software. please excuse any grammatical, word or spelling errors. Time with Patient: Greater than 30
[2023-12-25 11:12] LABS: Basophils % (A) 0.4 %; Eosinophils # (A) 0.14 X 10*3/uL (0.04-0.35); Eosinophils % (A) 0.6 %; Lymphocytes # (A) 2.35 X 10*3/uL (0.90-5.00); Lymphocytes % (A) 9.9 %; Monocytes # (A) 1.57 X 10*3/uL (0.20-1.00); Monocytes % (A) 6.6 %; Neutrophils # (A) 19.35 X 10*3/uL (1.80-7.70); Neutrophils % (A) 81.6 %; RBC Morphology Normal (Normal)
[2023-12-25] MEDS: VANCOMYCIN 1,500 MG in SODIUM CHLORIDE 0.9% 500 ML 500 ML IVPB SCH (12:44)
[2023-12-25] MEDS: POTASSIUM CHLORIDE ER 20 MEQ TAB.ER PO STA (12:44)
--- NOTE | 2023-12-25 13:02 | P.PN ---
Subjective 83-year-old female presents to the emergency department with chief complaint of left knee pain. She reports that a week and a half ago she had a scab that progressively became red and swollen. She received antibiotics for which she is not sure the name of and shortly after developed leg weakness so her physician started her on amoxicillin left knee pain has progressively gotten worse with redness extending into the inner thigh which is associated with nausea, vomiting, and fever. She reports full range of motion to left knee, denies shortness of breath, chest pain, and syncope. Admitted patient found to have significant leukocytosis, elevated CRP. Patient does have full range of motion of the joint with minimal discomfort. [place] less likely to be septic joint. Patient was started on vancomycin patient will need ID consult patient had repeat laboratory studies and further management 12/24 Patient left knee cellulitis improving slowly and gradually She still has extensive cellulitis but is regressing compared to the demarcated line, she has a small dried scab in the middle. No purulent discharge No joint swelling. She remains on IV antibiotics per ID team. Currently on IV vancomycin. She was on Augmentin at home which was discontinued upon admission. She still extensive leukocytosis 25 down to 23,000. Hemoglobin down 14 down to 11.6 with elements of hemodilution. Sodium 133, potassium 3.4 being replaced. Liver enzymes not elevated. Objective - Vital Signs Vital signs: Vital Signs Temp 98.8 F 12/25/23 07:00 Pulse 96 12/25/23 07:00 Resp 16 12/25/23 07:00 BP 152/88 12/25/23 07:00 Pulse Ox 98 12/25/23 07:00 FiO2 Intake & Output 12/24/23 12/25/23 12/25/23 18:59 06:59 18:59 Intake Total 240 Balance 240 Weight 80.739 kg Intake: Oral 240 Other: Voiding Method Toilet Toilet # Voids 1 1 - Exam GENERAL: The patient is alert and oriented x3, not in any acute distress. Well developed, well nourished. HEENT: Pupils are round and equally reacting to light. EOMI. No scleral icterus. No conjunctival pallor. Normocephalic, atraumatic. No pharyngeal erythema. No thyromegaly. CARDIOVASCULAR: S1 and S2 present. No murmurs, rubs, or gallops. PULMONARY: Chest is clear to auscultation, no wheezing , no crackles. ABDOMEN: Soft, nontender, nondistended, normoactive bowel sounds. No palpable organomegaly. MUSCULOSKELETAL: No joint swelling or deformity. -EXTREMITIES: No cyanosis, clubbing, or pedal edema. Left knee cellulitis with central dry scab, small 1. Improving slowly NEUROLOGICAL: Gross neurological examination did not reveal any focal deficits. SKIN: No rashes. no petechiae. - Labs CBC & Chem 7: 12/25/23 05:24 12/25/23 05:24 Labs: Abnormal Lab Results - Last 24 Hours (Table) 12/24/23 12/24/23 12/25/23 Range/Units 11:21 11:21 05:24 WBC 25.6 H (3.8-10.6) k/uL RBC (4.10-5.20) X 10*6/uL Hgb (12.0-15.0) g/dL Hct (37.2-46.3) % MPV (9.5-12.2) FL Neutrophils # 22.8 H (1.3-7.7) k/uL Sodium 133 L (137-145) mmol/L Potassium 3.4 L (3.5-5.1) mmol/L Carbon Dioxide 20 L 20 L (22-30) mmol/L BUN 26 H 25 H (7-17) mg/dL Glucose 130 H 104 H (74-99) mg/dL C-Reactive Protein 42.8 H (<1.0) mg/dL 12/25/23 Range/Units 05:24 WBC 23.73 H (3.8-10.6) k/uL RBC 4.04 L (4.10-5.20) X 10*6/uL Hgb 11.6 L (12.0-15.0) g/dL Hct 34.2 L (37.2-46.3) % MPV 9.1 L (9.5-12.2) FL Neutrophils # (1.3-7.7) k/uL Sodium (137-145) mmol/L Potassium (3.5-5.1) mmol/L Carbon Dioxide (22-30) mmol/L BUN (7-17) mg/dL Glucose (74-99) mg/dL C-Reactive Protein (<1.0) mg/dL Assessment and Plan Assessment: 1. Cellulitis LLE; failing out patient treatment -- WBC markedly elevated upon presentation to ED --patient has been initiated in IV Vancomycin with pharmacy dosing service - will monitor CBC, CRP and procalcitonin -- will consult ID for further recommendations 2. Leukocytosis; likely related to cellulitis; will repeat and trend -- blood cultures ordered and pending 3. Hypertension; takes Norvasc and losartan; will resume DVT Prophylaxis; SCDs Code Status; Full Code
--- NOTE | 2023-12-25 15:10 | P.PN ---
Subjective Progress Note Date: 12/25/23 Principal diagnosis: Reason for follow-up is left knee septic prepatellar bursitis Patient is a 83-year-old female with a past medical history significant for hypertension reflux angina diverticular disease patient was admitted to hospital with left knee pain swelling redness has been diagnosed with left knee prepatellar bursitis/cellulitis On today's evaluation that is 12/25/2023,the patient denies any fever or any chills, patient is breathing comfortably on room air, the patient denies chest pain shortness of breath and no significant cough, patient denies abdominal pain, no nausea vomiting or diarrhea. Patient pain to the left knee has slightly decreased in intensity. Patient white count is 23.73, creatinine 0.74 Objective - Vital Signs Vital signs: Vital Signs Temp 98.4 F 12/25/23 14:47 Pulse 87 12/25/23 14:47 Resp 16 12/25/23 14:47 BP 136/75 12/25/23 14:47 Pulse Ox 98 12/25/23 14:47 FiO2 Intake & Output 12/24/23 12/25/23 12/25/23 18:59 06:59 18:59 Intake Total 240 120 Balance 240 120 Weight 80.739 kg Intake: Oral 240 120 Other: Voiding Method Toilet Toilet # Voids 1 2 - Exam GENERAL DESCRIPTION: An elderly female lying in bed in no distress RESPIRATORY SYSTEM: Unlabored breathing , decreased breath sounds at bases HEART: S1 S2 regular rate and rhythm , ABDOMEN: Soft , no tenderness EXTREMITIES: Left knee swelling redness slightly decreased no drainage - Labs CBC & Chem 7: 12/25/23 05:24 12/25/23 05:24 Labs: Abnormal Lab Results - Last 24 Hours (Table) 12/25/23 12/25/23 Range/Units 05:24 05:24 WBC 23.73 H (4.50-10.00) X 10*3/uL RBC 4.04 L (4.10-5.20) X 10*6/uL Hgb 11.6 L (12.0-15.0) g/dL Hct 34.2 L (37.2-46.3) % MPV 9.1 L (9.5-12.2) FL Immature Gran # 0.22 H (0.00-0.04) X 10*3/uL Neutrophils # 19.35 H (1.80-7.70) X 10*3/uL Monocytes # 1.57 H (0.20-1.00) X 10*3/uL Sodium 133 L (137-145) mmol/L Potassium 3.4 L (3.5-5.1) mmol/L Carbon Dioxide 20 L (22-30) mmol/L BUN 25 H (7-17) mg/dL Glucose 104 H (74-99) mg/dL Assessment and Plan (1) Septic prepatellar bursitis of right knee Current Visit: Yes Status: Acute Code(s): M71.161 - OTHER INFECTIVE BURSITIS, RIGHT KNEE SNOMED Code(s): 6816847812031192 (2) Allergy to cephalosporin Current Visit: Yes Status: Acute Code(s): Z88.1 - ALLERGY STATUS TO OTHER ANTIBIOTIC AGENTS SNOMED Code(s): 228046998 (3) Cellulitis of left knee Current Visit: Yes Status: Acute Code(s): L03.116 - CELLULITIS OF LEFT LOWER LIMB SNOMED Code(s): 62092413894825774 (4) Failure of outpatient treatment Current Visit: Yes Status: Acute Code(s): Z78.9 - OTHER SPECIFIED HEALTH STATUS SNOMED Code(s): 698511628 Plan: 1patient presented to hospital with left knee pain swelling and redness suspicious for septic prepatellar bursitis failing outpatient oral antibiotic therapy. 2patient with cephalexin allergy that will limit the number of antibiotics safe to use. 3patient did have slight decrease in the redness to the left knee we will continue vancomycin pharmacy to dose with a target of 15 and monitor getting her course closely Dictation was produced using [employer] software. please excuse any grammatical, word or spelling errors. Time with Patient: Less than 30
[2023-12-25] MEDS: GABAPENTIN 100 MG CAP PO SCH (17:05)
[2023-12-26 06:24] LABS: African American GFR (CKD) 46 (>60 ml/min/1.73 sqM); Anion Gap 6 mmol/L; Blood Urea Nitrogen 24 mg/dL (7-17); Calcium 8.4 mg/dL (8.4-10.2); Carbon Dioxide 22 mmol/L (22-30); Chloride 109 mmol/L (98-107); Glucose 102 mg/dL (74-99); Non-African American GFR(CKD) 40 (>60 ml/min/1.73 sqM); Potassium 4.2 mmol/L (3.5-5.1); Sodium 137 mmol/L (137-145)
[2023-12-26 09:51] LABS: HCT 35.8 % (37.2-46.3); HGB 11.9 g/dL (12.0-15.0); MCHC 33.2 g/dL (32.0-37.0); MCV 87.3 FL (80.0-97.0); Mean Platelet Volume 9.1 FL (9.5-12.2); NRBC Per 100 WBC 0 X 10*3/uL (0.00-0.01); Platelet Count 292 X 10*3/uL (140-440); RDW 14.1 % (11.5-14.5)
[2023-12-26 10:32] LABS: Basophils # (A) 0.11 X 10*3/uL (0.00-0.10); Basophils % (A) 0.5 %; Eosinophils # (A) 0.34 X 10*3/uL (0.04-0.35); Eosinophils % (A) 1.7 %; Lymphocytes # (A) 2.76 X 10*3/uL (0.90-5.00); Lymphocytes % (A) 13.7 %; Monocytes # (A) 1.39 X 10*3/uL (0.20-1.00); Monocytes % (A) 6.9 %; Neutrophils % (A) 74.7 %; RBC Morphology Normal (Normal)
--- NOTE | 2023-12-26 16:09 | P.PN ---
Subjective Progress Note Date: 12/26/23 Principal diagnosis: Reason for follow-up is left knee septic prepatellar bursitis Patient is a 83-year-old female with a past medical history significant for hypertension reflux angina diverticular disease patient was admitted to hospital with left knee pain swelling redness has been diagnosed with left knee prepatellar bursitis/cellulitis On today's evaluation that is 12/26/2023,the patient remains to be afebrile, patient is on room air not requiring supplemental oxygen and denies any shortness of breath no chest pain or cough.Patient denies having any nausea or vomiting, no abdominal pain and no diarrhea left knee pain has slightly decreased in intensity. Patient white count is down to 20,000, creatinine is 1.26 blood culture have been negative so far Objective - Vital Signs Vital signs: Vital Signs Temp 99.5 F 12/26/23 15:00 Pulse 100 12/26/23 15:00 Resp 16 12/26/23 15:00 BP 153/70 12/26/23 15:00 Pulse Ox 97 12/26/23 15:00 FiO2 Intake & Output 12/25/23 12/26/23 12/26/23 18:59 06:59 18:59 Intake Total 240 358 Balance 240 358 Intake: Oral 240 358 Other: Voiding Method Toilet # Voids 2 2 2 - Exam GENERAL DESCRIPTION: An elderly female lying in bed in no distress RESPIRATORY SYSTEM: Unlabored breathing , decreased breath sounds at bases HEART: S1 S2 regular rate and rhythm , ABDOMEN: Soft , no tenderness EXTREMITIES: Left knee swelling redness slightly decreased no drainage - Labs CBC & Chem 7: 12/26/23 05:50 12/26/23 05:50 Labs: Abnormal Lab Results - Last 24 Hours (Table) 12/26/23 12/26/23 Range/Units 05:50 05:50 WBC 20.20 H (4.50-10.00) X 10*3/uL Hgb 11.9 L (12.0-15.0) g/dL Hct 35.8 L (37.2-46.3) % MPV 9.1 L (9.5-12.2) FL Immature Gran # 0.50 H (0.00-0.04) X 10*3/uL Neutrophils # 15.10 H (1.80-7.70) X 10*3/uL Monocytes # 1.39 H (0.20-1.00) X 10*3/uL Basophils # 0.11 H (0.00-0.10) X 10*3/uL Chloride 109 H (98-107) mmol/L BUN 24 H (7-17) mg/dL Creatinine 1.26 H (0.52-1.04) mg/dL Glucose 102 H (74-99) mg/dL Microbiology - Last 24 Hours (Table) 12/24/23 11:21 Blood Culture - Preliminary Blood Assessment and Plan (1) Septic prepatellar bursitis of right knee Current Visit: Yes Status: Acute Code(s): M71.161 - OTHER INFECTIVE BURSITIS, RIGHT KNEE SNOMED Code(s): 8522426101379876 (2) Allergy to cephalosporin Current Visit: Yes Status: Acute Code(s): Z88.1 - ALLERGY STATUS TO OTHER ANTIBIOTIC AGENTS SNOMED Code(s): 151410862 (3) Cellulitis of left knee Current Visit: Yes Status: Acute Code(s): L03.116 - CELLULITIS OF LEFT LOWER LIMB SNOMED Code(s): 25483385326722980 (4) Failure of outpatient treatment Current Visit: Yes Status: Acute Code(s): Z78.9 - OTHER SPECIFIED HEALTH STATUS SNOMED Code(s): 433629848 Plan: 1patient presented to hospital with left knee pain swelling and redness suspicious for septic prepatellar bursitis failing outpatient oral antibiotic therapy. 2patient with cephalexin allergy that will limit the number of antibiotics safe to use. 3patient did have rather slow clinical improvement and white count still elevated we will recommend obtaining orthopedic evaluation for possible drainage and culture continue with vancomycin Dictation was produced using [employer] software. please excuse any grammatical, word or spelling errors. Time with Patient: Less than 30
[2023-12-26] MEDS: SODIUM CHLORIDE 0.9% 1,000 ML IV SCH (18:47)
[2023-12-26 20:11] LABS: Appearance,Urine Clear (Clear); Bilirubin,Urine Negative (Negative); Blood,Urine Negative (Negative); Color,Urine Colorless; Glucose,Urine (UA) Negative (Negative); Ketones,Urine Negative (Negative); Leukocyte Esterase,Urine Negative (Negative); Nitrite,Urine Negative (Negative); Protein,Urine Trace (Negative); Specific Gravity,Urine 1.012 (1.001-1.035); Urobilinogen,Urine <2.0 mg/dL (<2.0)
--- NOTE | 2023-12-26 23:06 | P.PN ---
Subjective 83-year-old female presents to the emergency department with chief complaint of left knee pain. She reports that a week and a half ago she had a scab that progressively became red and swollen. She received antibiotics for which she is not sure the name of and shortly after developed leg weakness so her physician started her on amoxicillin left knee pain has progressively gotten worse with redness extending into the inner thigh which is associated with nausea, vomiting, and fever. She reports full range of motion to left knee, denies shortness of breath, chest pain, and syncope. Admitted patient found to have significant leukocytosis, elevated CRP. Patient does have full range of motion of the joint with minimal discomfort. [place] less likely to be septic joint. Patient was started on vancomycin patient will need ID consult patient had repeat laboratory studies and further management 12/24 Patient left knee cellulitis improving slowly and gradually She still has extensive cellulitis but is regressing compared to the demarcated line, she has a small dried scab in the middle. No purulent discharge No joint swelling. She remains on IV antibiotics per ID team. Currently on IV vancomycin. She was on Augmentin at home which was discontinued upon admission. She still extensive leukocytosis 25 down to 23,000. Hemoglobin down 14 down to 11.6 with elements of hemodilution. Sodium 133, potassium 3.4 being replaced. Liver enzymes not elevated. 1013 Patient left knee cellulitis improving slowly and gradually Hemoglobin stable Leukocytosis improving down to 20K Creatinine went up to 1.2, will restart the patient on normal saline and check creatinine tomorrow if worse will consider nephrology consult In the meantime we will check urine analysis which was normal, will check postvoid residual which was not elevated at 120 mL Patient continue with antibiotics per ID team, currently on IV vancomycin Discussed with the staff Review of systems CONSTITUTIONAL: No fever, no malaise, no fatigue. HEENT: No recent visual problems or hearing problems. Denied any sore throat. CARDIOVASCULAR: No orthopnea, PND, no palpitations, no syncope. PULMONARY: No shortness of breath, no cough, no hemoptysis. GASTROINTESTINAL: No diarrhea, no nausea, no vomiting, no abdominal pain. Normoactive bowel sounds. NEUROLOGICAL: No headaches, no weakness, no numbness. HEMATOLOGICAL: Denies any bleeding or petechia Active Medications Generic Name Dose Route Start Last Admin Trade Name Freq PRN Reason Stop Dose Admin Hydrocodone Bitart/Acetaminophen 1 each 12/24/23 13:35 12/26/23 20:01 Hydrocodone/Apap 10-325mg 1 Each Tab PO 1 each TID PRN Administration Pain Amlodipine Besylate 5 mg 12/25/23 09:00 12/26/23 08:12 Amlodipine 5 Mg Tab PO 5 mg DAILY STEFF Administration Gabapentin 200 mg 12/25/23 17:30 12/26/23 20:01 Gabapentin 100 Mg Cap PO 200 mg BID STEFF Administration Hydromorphone HCl 0.5 mg 12/24/23 13:14 12/25/23 01:14 Hydromorphone 0.5 Mg/0.5 Ml Syringe IVP 0.5 mg Q3HR PRN Administration Moderate Pain (Scale 4 to 6) Hydromorphone HCl 1 mg 12/24/23 13:14 Hydromorphone 1 Mg/Ml 1 Ml Syringe IVP Q3HR PRN Severe Pain (Scale 7 to 10) Vancomycin HCl 1,500 mg/ 500 mls @ 167 mls/hr 12/25/23 12:00 12/26/23 13:21 Sodium Chloride IVPB 167 mls/hr Q24H STEFF Administration Sodium Chloride 1,000 mls @ 75 mls/hr 12/26/23 18:00 12/26/23 18:47 Saline 0.9% IV 75 mls/hr .[id number] STEFF Administration Losartan Potassium 100 mg 12/25/23 09:00 12/26/23 08:12 Losartan 50 Mg Tab PO 100 mg DAILY STEFF Administration Miscellaneous Information 0 each 12/27/23 11:00 Vancomycin Trough Due 1 Each Misc MISCELLANE 12/27/23 11:01 DIRECTED ONE Naloxone HCl 0.2 mg 12/24/23 13:14 Naloxone 0.4 Mg/Ml 1 Ml Vial IV Q2M PRN Opioid Reversal Ondansetron HCl 4 mg 12/24/23 13:14 Ondansetron 4 Mg/2 Ml Vial IVP Q8HR PRN Nausea And Vomiting Objective - Vital Signs Vital signs: Vital Signs Temp 98.8 F 12/26/23 07:00 Pulse 81 12/26/23 07:00 Resp 16 12/26/23 07:00 BP 145/74 12/26/23 07:00 Pulse Ox 97 12/26/23 07:00 FiO2 Intake & Output 12/25/23 12/26/23 12/26/23 18:59 06:59 18:59 Intake Total 240 118 Balance 240 118 Intake: Oral 240 118 Other: Voiding Method Toilet # Voids 2 2 - Exam GENERAL: The patient is alert and oriented x3, not in any acute distress. Well developed, well nourished. HEENT: Pupils are round and equally reacting to light. EOMI. No scleral icterus. No conjunctival pallor. Normocephalic, atraumatic. No pharyngeal erythema. No thyromegaly. CARDIOVASCULAR: S1 and S2 present. No murmurs, rubs, or gallops. PULMONARY: Chest is clear to auscultation, no wheezing , no crackles. ABDOMEN: Soft, nontender, nondistended, normoactive bowel sounds. No palpable organomegaly. MUSCULOSKELETAL: No joint swelling or deformity. -EXTREMITIES: No cyanosis, clubbing, or pedal edema. Left knee cellulitis with central dry scab, small 1. Improving slowly NEUROLOGICAL: Gross neurological examination did not reveal any focal deficits. SKIN: No rashes. no petechiae. - Labs CBC & Chem 7: 12/26/23 05:50 12/26/23 05:50 Labs: Abnormal Lab Results - Last 24 Hours (Table) 12/25/23 12/26/23 Range/Units 05:24 05:50 Immature Gran # 0.22 H (0.00-0.04) X 10*3/uL Neutrophils # 19.35 H (1.80-7.70) X 10*3/uL Monocytes # 1.57 H (0.20-1.00) X 10*3/uL Chloride 109 H (98-107) mmol/L BUN 24 H (7-17) mg/dL Creatinine 1.26 H (0.52-1.04) mg/dL Glucose 102 H (74-99) mg/dL Microbiology - Last 24 Hours (Table) 12/24/23 11:21 Blood Culture - Preliminary Blood Assessment and Plan Assessment: 1. Cellulitis LLE; failing out patient treatment -- WBC markedly elevated upon presentation to ED --patient has been initiated in IV Vancomycin with pharmacy dosing service - will monitor CBC, CRP and procalcitonin -- will consult ID for further recommendations 2. Leukocytosis; likely related to cellulitis; will repeat and trend -- blood cultures ordered and pending 3. Hypertension; takes Norvasc and losartan; will resume 4. Acute kidney injury -- Will check urine analysis and bladder scan and they were unremarkable -- Start the patient on normal saline 75 mL/h -- Monitor creatinine level tomorrow, if no improvement or worsening then consid er nephrology consult DVT Prophylaxis; SCDs Code Status; Full Code
[2023-12-27 08:42] LABS: HGB 11.9 g/dL (12.0-15.0); MCH 28.8 pg (27.0-32.0); MCHC 33.1 g/dL (32.0-37.0); MCV 87.2 FL (80.0-97.0); Mean Platelet Volume 9.1 FL (9.5-12.2); NRBC Per 100 WBC 0 X 10*3/uL (0.00-0.01); Platelet Count 334 X 10*3/uL (140-440); RBC 4.13 X 10*6/uL (4.10-5.20); WBC 19.53 X 10*3/uL (4.50-10.00)
[2023-12-27 08:46] LABS: BUN/Creat Ratio 15.54 Ratio (12.00-20.00); Blood Urea Nitrogen 20.2 mg/dL (9.0-27.0); Calcium 8.5 mg/dL (8.7-10.3); Carbon Dioxide 19.6 mmol/L (21.6-31.8); Chloride 105 mmol/L (96-109); Glucose 88 mg/dL (70-110); Potassium 4.6 mmol/L (3.5-5.5); Sodium 136 mmol/L (135-145)
[2023-12-27 11:09] LABS: Basophils # (A) 0.15 X 10*3/uL (0.00-0.10); Basophils % (A) 0.8 %; Eosinophils # (A) 0.45 X 10*3/uL (0.04-0.35); Eosinophils % (A) 2.3 %; Lymphocytes # (A) 3.76 X 10*3/uL (0.90-5.00); Lymphocytes % (A) 19.3 %; Monocytes % (A) 6.1 %; Neutrophils # (A) 13.23 X 10*3/uL (1.80-7.70); Neutrophils % (A) 67.7 %
[2023-12-27 11:10] LABS: RBC Morphology Normal (Normal)
[2023-12-27 11:33] LABS: African American GFR (CKD) 49 (>60 ml/min/1.73 sqM); Non-African American GFR(CKD) 42 (>60 ml/min/1.73 sqM)
[2023-12-27] MEDS: VANCOMYCIN TROUGH DUE 1 EACH MISC MISCELLANE ONE (12:33)
--- NOTE | 2023-12-27 17:03 | P.HPOR ---
History of Present Illness H&P Date: 12/27/23 Chief Complaint: Left knee prepatellar bursitis Patient is a very pleasant 83-year-old female with a multiple chronic medical conditions who was admitted to hospital with left knee pain, swelling, redness has been diagnosed with left knee prepatellar bursitis/cellulitis. Patient states a couple weeks ago she scratched her knee and developed redness a couple days afterward. Her knee has became painful, swollen, warm, and has pain with range of motion. Past Medical History Past Medical History: Chest Pain / Angina, GERD/Reflux, Hypertension, Pneumonia Additional Past Medical History / Comment(s): left ankle pain, DIVERTICULAR DISEASE,ARTHRITIS, Vertigo History of Any Multi-Drug Resistant Organisms: None Reported Past Surgical History: Appendectomy, Bladder Surgery, Heart Catheterization, Hysterectomy Additional Past Surgical History / Comment(s): BOWEL RESECTION, UMB HERNIA REPAIR, MILLER CATARACTS,COLONOSCOPY Past Anesthesia/Blood Transfusion Reactions: Motion Sickness Past Psychological History: Anxiety Smoking Status: Never smoker Past Alcohol Use History: None Reported Past Drug Use History: None Reported - Past Family History Mother Family Medical History: CVA/TIA, Dementia, Hypertension, Seizure Disorder Additional Family Medical History / Comment(s): AT AGE 83 Father Family Medical History: Diabetes Mellitus, Hypertension Additional Family Medical History / Comment(s): HERNIA Medications and Allergies Home Medications Medication Instructions Recorded Confirmed Type HYDROcodone/APAP 10-325MG [[place] 1 tab PO TID PRN 05/19/22 12/24/23 History 10-325] Losartan Potassium [Cozaar] 100 mg PO DAILY 05/19/22 12/24/23 History amLODIPine [Norvasc] 5 mg PO DAILY 08/29/23 12/24/23 History Amoxic-Pot Clav 875-125Mg 1 tab PO BID 12/24/23 12/24/23 History [Augmentin 875-125] Allergies Allergy/AdvReac Type Severity Reaction Status Date / Time cephalexin [From Keflex] AdvReac Unknown Verified 12/24/23 12:53 Physical Examination A focused exam of the left lower extremity was performed at bedside today. Patient was resting in bed comfortably. No acute distress. Patient was awake, alert, and able to answer questions. On inspection there was erythema and diffuse swelling over the left anterior knee. Palpation over the prepatellar bursa had a small amount of fluctuance. Patient's left knee was warm compared to the right. Patient had no pain with logroll. Patient had pain with knee flexion and extension. Patient had no pain with plantarflexion or dorsiflexion. Patient's foot was well-perfused with brisk capillary refill under 2 seconds. Patient's femoral nerve function was grossly intact. Results - Labs Labs: Abnormal Lab Results - Last 24 Hours (Table) 12/26/23 12/27/23 12/27/23 Range/Units 18:44 05:02 05:02 WBC 19.53 H (4.50-10.00) X 10*3/uL Hgb 11.9 L (12.0-15.0) g/dL Hct 36.0 L (37.2-46.3) % MPV 9.1 L (9.5-12.2) FL Immature Gran # 0.74 H (0.00-0.04) X 10*3/uL Neutrophils # 13.23 H (1.80-7.70) X 10*3/uL Monocytes # 1.20 H (0.20-1.00) X 10*3/uL Eosinophils # 0.45 H (0.04-0.35) X 10*3/uL Basophils # 0.15 H (0.00-0.10) X 10*3/uL Carbon Dioxide 19.6 L (21.6-31.8) mmol/L Creatinine (0.52-1.04) mg/dL Est GFR (CKD-EPI) 41 L (>=60) Calcium 8.5 L (8.7-10.3) mg/dL Urine Protein Trace H (Negative) 12/27/23 Range/Units 10:45 WBC (4.50-10.00) X 10*3/uL Hgb (12.0-15.0) g/dL Hct (37.2-46.3) % MPV (9.5-12.2) FL Immature Gran # (0.00-0.04) X 10*3/uL Neutrophils # (1.80-7.70) X 10*3/uL Monocytes # (0.20-1.00) X 10*3/uL Eosinophils # (0.04-0.35) X 10*3/uL Basophils # (0.00-0.10) X 10*3/uL Carbon Dioxide (21.6-31.8) mmol/L Creatinine 1.21 H (0.52-1.04) mg/dL Est GFR (CKD-EPI) (>=60) Calcium (8.7-10.3) mg/dL Urine Protein (Negative) Microbiology - Last 24 Hours (Table) 12/24/23 11:21 Blood Culture - Preliminary Blood H & H 12/24/23 12/25/23 12/26/23 Range/Units 11:21 05:24 05:50 Hgb 14.0 11.6 L 11.9 L (11.4-16.0) gm/dL Hct 40.0 34.2 L 35.8 L (34.0-46.0) % 12/27/23 Range/Units 05:02 Hgb 11.9 L (11.4-16.0) gm/dL Hct 36.0 L (34.0-46.0) % Result Diagrams: 12/27/23 05:02 12/27/23 10:45 Assessment and Plan Assessment: left knee septic prepatellar bursitis Plan: Patient history, and exam findings were discussed with patient at length. N.p.o. after midnight. Plan for incision and drainage and irrigation of the left knee prepatellar bursa on 12/28/[address] Juan José Hsieh. Thank you for the consult.
--- NOTE | 2023-12-27 21:28 | P.PN ---
Subjective 83-year-old female presents to the emergency department with chief complaint of left knee pain. She reports that a week and a half ago she had a scab that progressively became red and swollen. She received antibiotics for which she is not sure the name of and shortly after developed leg weakness so her physician started her on amoxicillin left knee pain has progressively gotten worse with redness extending into the inner thigh which is associated with nausea, vomiting, and fever. She reports full range of motion to left knee, denies shortness of breath, chest pain, and syncope. Admitted patient found to have significant leukocytosis, elevated CRP. Patient does have full range of motion of the joint with minimal discomfort. [place] less likely to be septic joint. Patient was started on vancomycin patient will need ID consult patient had repeat laboratory studies and further management 12/24 Patient left knee cellulitis improving slowly and gradually She still has extensive cellulitis but is regressing compared to the demarcated line, she has a small dried scab in the middle. No purulent discharge No joint swelling. She remains on IV antibiotics per ID team. Currently on IV vancomycin. She was on Augmentin at home which was discontinued upon admission. She still extensive leukocytosis 25 down to 23,000. Hemoglobin down 14 down to 11.6 with elements of hemodilution. Sodium 133, potassium 3.4 being replaced. Liver enzymes not elevated. 1013 Patient left knee cellulitis improving slowly and gradually Hemoglobin stable Leukocytosis improving down to 20K Creatinine went up to 1.2, will restart the patient on normal saline and check creatinine tomorrow if worse will consider nephrology consult In the meantime we will check urine analysis which was normal, will check postvoid residual which was not elevated at 120 mL Patient continue with antibiotics per ID team, currently on IV vancomycin Discussed with the staff 12/26 Patient has more localized area of significant inflammation including redness swelling and tenderness, mainly above the knee. Suspicious for bursitis, orthopedic team are planning for I&D tomorrow Kidney level and function monitored, creatinine better today 1.21. Patient continued on normal saline 75 mL/h. Patient continued on IV vancomycin pending final results of culture per ID team. Risk of nephrotoxicity explained for the patient in details and she is aware and stated back to me. Patient agreeable with the current plan. UA is negative and reviewed, bladder scan is negative with a postvoid residual at 120. Patient still have significant leukocytosis at 19,000. Active Medications Generic Name Dose Route Start Last Admin Trade Name Freq PRN Reason Stop Dose Admin Hydrocodone Bitart/Acetaminophen 1 each 12/24/23 13:35 12/27/23 20:39 Hydrocodone/Apap 10-325mg 1 Each Tab PO 1 each TID PRN Administration Pain Amlodipine Besylate 5 mg 12/25/23 09:00 12/27/23 09:47 Amlodipine 5 Mg Tab PO 5 mg DAILY STEFF Administration Gabapentin 200 mg 12/25/23 17:30 12/27/23 20:39 Gabapentin 100 Mg Cap PO 200 mg BID STEFF Administration Hydromorphone HCl 0.5 mg 12/24/23 13:14 12/25/23 01:14 Hydromorphone 0.5 Mg/0.5 Ml Syringe IVP 0.5 mg Q3HR PRN Administration Moderate Pain (Scale 4 to 6) Hydromorphone HCl 1 mg 12/24/23 13:14 Hydromorphone 1 Mg/Ml 1 Ml Syringe IVP Q3HR PRN Severe Pain (Scale 7 to 10) Sodium Chloride 1,000 mls @ 75 mls/hr 12/26/23 18:00 12/27/23 20:43 Saline 0.9% IV 75 mls/hr .[id number] STEFF Administration Vancomycin HCl 1,500 mg/ 500 mls @ 167 mls/hr 12/28/23 09:00 Sodium Chloride IVPB Q24HR STEFF Losartan Potassium 100 mg 12/25/23 09:00 12/27/23 09:47 Losartan 50 Mg Tab PO 100 mg DAILY STEFF Administration Naloxone HCl 0.2 mg 12/24/23 13:14 Naloxone 0.4 Mg/Ml 1 Ml Vial IV Q2M PRN Opioid Reversal Ondansetron HCl 4 mg 12/24/23 13:14 Ondansetron 4 Mg/2 Ml Vial IVP Q8HR PRN Nausea And Vomiting Objective - Vital Signs Vital signs: Vital Signs Temp 98.4 F 12/27/23 07:00 Pulse 76 12/27/23 07:00 Resp 16 12/27/23 07:00 BP 151/79 12/27/23 07:00 Pulse Ox 98 12/27/23 07:00 FiO2 Intake & Output 12/26/23 12/27/23 12/27/23 18:59 06:59 18:59 Intake Total 358 240 118 Output Total 120 Balance 358 120 118 Intake: Oral 358 240 118 Output: Post Void Residual 120 Other: Voiding Method Toilet # Voids 2 2 # Bowel Movements 1 - Exam GENERAL: The patient is alert and oriented x3, not in any acute distress. Well developed, well nourished. HEENT: Pupils are round and equally reacting to light. EOMI. No scleral icterus. No conjunctival pallor. Normocephalic, atraumatic. No pharyngeal erythema. No thyromegaly. CARDIOVASCULAR: S1 and S2 present. No murmurs, rubs, or gallops. PULMONARY: Chest is clear to auscultation, no wheezing , no crackles. ABDOMEN: Soft, nontender, nondistended, normoactive bowel sounds. No palpable organomegaly. MUSCULOSKELETAL: No joint swelling or deformity. -EXTREMITIES: No cyanosis, clubbing, or pedal edema. Left knee cellulitis with central dry scab, small 1. Improving slowly NEUROLOGICAL: Gross neurological examination did not reveal any focal deficits. SKIN: No rashes. no petechiae. - Labs CBC & Chem 7: 12/27/23 05:02 12/27/23 10:45 Labs: Abnormal Lab Results - Last 24 Hours (Table) 12/26/23 12/27/23 12/27/23 Range/Units 18:44 05:02 05:02 WBC 19.53 H (4.50-10.00) X 10*3/uL Hgb 11.9 L (12.0-15.0) g/dL Hct 36.0 L (37.2-46.3) % MPV 9.1 L (9.5-12.2) FL Immature Gran # 0.74 H (0.00-0.04) X 10*3/uL Neutrophils # 13.23 H (1.80-7.70) X 10*3/uL Monocytes # 1.20 H (0.20-1.00) X 10*3/uL Eosinophils # 0.45 H (0.04-0.35) X 10*3/uL Basophils # 0.15 H (0.00-0.10) X 10*3/uL Carbon Dioxide 19.6 L (21.6-31.8) mmol/L Creatinine (0.52-1.04) mg/dL Est GFR (CKD-EPI) 41 L (>=60) Calcium 8.5 L (8.7-10.3) mg/dL Urine Protein Trace H (Negative) 12/27/23 Range/Units 10:45 WBC (4.50-10.00) X 10*3/uL Hgb (12.0-15.0) g/dL Hct (37.2-46.3) % MPV (9.5-12.2) FL Immature Gran # (0.00-0.04) X 10*3/uL Neutrophils # (1.80-7.70) X 10*3/uL Monocytes # (0.20-1.00) X 10*3/uL Eosinophils # (0.04-0.35) X 10*3/uL Basophils # (0.00-0.10) X 10*3/uL Carbon Dioxide (21.6-31.8) mmol/L Creatinine 1.21 H (0.52-1.04) mg/dL Est GFR (CKD-EPI) (>=60) Calcium (8.7-10.3) mg/dL Urine Protein (Negative) Microbiology - Last 24 Hours (Table) 12/24/23 11:21 Blood Culture - Preliminary Blood Assessment and Plan Assessment: 1. Cellulitis LLE; failing out patient treatment. Acute septic bursitis of the left knee is suspected -- WBC markedly elevated upon presentation to ED --patient has been initiated in IV Vancomycin with pharmacy dosing service - will monitor CBC, CRP and procalcitonin -- will consult ID for further recommendations --By orthopedic team 2. Leukocytosis; likely related to cellulitis; will repeat and trend -- blood cultures ordered and pending 3. Hypertension; takes Norvasc and losartan; will resume 4. Acute kidney injury -- Will check urine analysis and bladder scan and they were unremarkable -- Start the patient on normal saline 75 mL/h -- Monitor creatinine level tomorrow, if no improvement or worsening then consider nephrology consult DVT Prophylaxis; SCDs Code Status; Full Code
--- NOTE | 2023-12-27 22:23 | P.PN ---
Subjective Progress Note Date: 12/27/23 Principal diagnosis: Reason for follow-up is left knee septic prepatellar bursitis Patient is a 83-year-old female with a past medical history significant for hypertension reflux angina diverticular disease patient was admitted to hospital with left knee pain swelling redness has been diagnosed with left knee prepatellar bursitis/cellulitis On today's evaluation that is 12/27/2023, the patient continues to be afebrile, the patient is on room air and breathing comfortably, the Pt denies having any chest pain or cough, the patient denies having any abdominal pain no vomiting or any diarrhea pain to the left knee has slight decrease in intensity. Patient weight was 19.53 creatinine is 1.3 Vanco trough on the low side blood cultures are pending Objective - Vital Signs Vital signs: Vital Signs Temp 98.4 F 12/27/23 07:00 Pulse 76 12/27/23 07:00 Resp 16 12/27/23 07:00 BP 151/79 12/27/23 07:00 Pulse Ox 98 12/27/23 07:00 FiO2 Intake & Output 12/26/23 12/27/23 12/27/23 18:59 06:59 18:59 Intake Total 358 240 118 Output Total 120 Balance 358 120 118 Intake: Oral 358 240 118 Output: Post Void Residual 120 Other: Voiding Method Toilet # Voids 2 2 # Bowel Movements 1 - Exam GENERAL DESCRIPTION: An elderly female lying in bed in no distress RESPIRATORY SYSTEM: Unlabored breathing , decreased breath sounds at bases HEART: S1 S2 regular rate and rhythm , ABDOMEN: Soft , no tenderness EXTREMITIES: Left knee swelling redness slightly decreased no drainage - Labs CBC & Chem 7: 12/27/23 05:02 12/27/23 10:45 Labs: Abnormal Lab Results - Last 24 Hours (Table) 12/26/23 12/27/23 12/27/23 Range/Units 18:44 05:02 05:02 WBC 19.53 H (4.50-10.00) X 10*3/uL Hgb 11.9 L (12.0-15.0) g/dL Hct 36.0 L (37.2-46.3) % MPV 9.1 L (9.5-12.2) FL Immature Gran # 0.74 H (0.00-0.04) X 10*3/uL Neutrophils # 13.23 H (1.80-7.70) X 10*3/uL Monocytes # 1.20 H (0.20-1.00) X 10*3/uL Eosinophils # 0.45 H (0.04-0.35) X 10*3/uL Basophils # 0.15 H (0.00-0.10) X 10*3/uL Carbon Dioxide 19.6 L (21.6-31.8) mmol/L Creatinine (0.52-1.04) mg/dL Est GFR (CKD-EPI) 41 L (>=60) Calcium 8.5 L (8.7-10.3) mg/dL Urine Protein Trace H (Negative) 12/27/23 Range/Units 10:45 WBC (4.50-10.00) X 10*3/uL Hgb (12.0-15.0) g/dL Hct (37.2-46.3) % MPV (9.5-12.2) FL Immature Gran # (0.00-0.04) X 10*3/uL Neutrophils # (1.80-7.70) X 10*3/uL Monocytes # (0.20-1.00) X 10*3/uL Eosinophils # (0.04-0.35) X 10*3/uL Basophils # (0.00-0.10) X 10*3/uL Carbon Dioxide (21.6-31.8) mmol/L Creatinine 1.21 H (0.52-1.04) mg/dL Est GFR (CKD-EPI) (>=60) Calcium (8.7-10.3) mg/dL Urine Protein (Negative) Microbiology - Last 24 Hours (Table) 12/24/23 11:21 Blood Culture - Preliminary Blood Assessment and Plan (1) Septic prepatellar bursitis of right knee Current Visit: Yes Status: Acute Code(s): M71.161 - OTHER INFECTIVE BUR SITIS, RIGHT KNEE SNOMED Code(s): 2875702803849448 (2) Allergy to cephalosporin Current Visit: Yes Status: Acute Code(s): Z88.1 - ALLERGY STATUS TO OTHER ANTIBIOTIC AGENTS SNOMED Code(s): 303859132 (3) Cellulitis of left knee Current Visit: Yes Status: Acute Code(s): L03.116 - CELLULITIS OF LEFT LOWER LIMB SNOMED Code(s): 00149145358825305 (4) Failure of outpatient treatment Current Visit: Yes Status: Acute Code(s): Z78.9 - OTHER SPECIFIED HEALTH STATUS SNOMED Code(s): 600018371 Plan: 1patient presented to hospital with left knee pain swelling and redness suspici ous for septic prepatellar bursitis failing outpatient oral antibiotic therapy. 2patient with cephalexin allergy that will limit the number of antibiotics safe to use. 3we will obtain orthopedic evaluation for possible drainage and culture in view of the slow clinical response and continue with vancomycin Dictation was produced using [employer] dictation software. please excuse any grammatical, word or spelling errors. Time with Patient: Less than 30
[2023-12-28 07:00] LABS: African American GFR (CKD) 54 (>60 ml/min/1.73 sqM); Anion Gap 8 mmol/L; Blood Urea Nitrogen 19 mg/dL (7-17); Calcium 8.5 mg/dL (8.4-10.2); Carbon Dioxide 23 mmol/L (22-30); Chloride 108 mmol/L (98-107); Glucose 84 mg/dL (74-99); Non-African American GFR(CKD) 47 (>60 ml/min/1.73 sqM); Potassium 4.2 mmol/L (3.5-5.1); Sodium 139 mmol/L (137-145)
[2023-12-28 07:13] LABS: C Reactive Protein 6.4 mg/dL (<1.0)
[2023-12-28] MEDS: VANCOMYCIN 1,500 MG in SODIUM CHLORIDE 0.9% 500 ML 500 ML IVPB SCH (08:33)
[2023-12-28 09:24] LABS: HCT 34.1 % (37.2-46.3); HGB 11.3 g/dL (12.0-15.0); MCH 28.9 pg (27.0-32.0); MCHC 33.1 g/dL (32.0-37.0); MCV 87.2 FL (80.0-97.0); Mean Platelet Volume 8.7 FL (9.5-12.2); NRBC Per 100 WBC 0 X 10*3/uL (0.00-0.01); Platelet Count 357 X 10*3/uL (140-440); RBC 3.91 X 10*6/uL (4.10-5.20); WBC 15.98 X 10*3/uL (4.50-10.00)
--- NOTE | 2023-12-28 10:42 | P.PN ---
Subjective Patient is resting in bed. She says her knee feels better. Nursing also thinks the patient's knee looks better. Objective - Vital Signs Vital signs: Vital Signs Temp 98.2 F 12/28/23 07:00 Pulse 80 12/28/23 07:00 Resp 18 12/28/23 07:00 BP 134/81 12/28/23 07:00 Pulse Ox 99 12/28/23 07:00 FiO2 Intake & Output 12/27/23 12/28/23 12/28/23 18:59 06:59 18:59 Intake Total 354 Balance 354 Intake: Oral 354 Other: Voiding Method Toilet # Voids 4 4 1 # Bowel Movements 1 - Exam Resting comfortably in bed. NAD. AAOx3 LEFT LE: On inspection of the knee there is erythema and warmth over the anterior knee. There is a small scab over the prepatellar bursa. THERE IS NO FLUCTUANCE or FLUID collection over the anterior knee. There is NO KNEE EFFUSION. There is no pain with PROM of the knee. - Labs CBC & Chem 7: 12/28/23 05:45 12/28/23 05:45 Labs: Abnormal Lab Results - Last 24 Hours (Table) 12/27/23 12/27/23 12/28/23 Range/Units 05:02 10:45 05:45 WBC (4.50-10.00) X 10*3/uL RBC (4.10-5.20) X 10*6/uL Hgb (12.0-15.0) g/dL Hct (37.2-46.3) % MPV (9.5-12.2) FL Immature Gran # 0.74 H (0.00-0.04) X 10*3/uL Neutrophils # 13.23 H (1.80-7.70) X 10*3/uL Monocytes # 1.20 H (0.20-1.00) X 10*3/uL Eosinophils # 0.45 H (0.04-0.35) X 10*3/uL Basophils # 0.15 H (0.00-0.10) X 10*3/uL Chloride 108 H (98-107) mmol/L BUN 19 H (7-17) mg/dL Creatinine 1.21 H 1.10 H (0.52-1.04) mg/dL C-Reactive Protein 6.4 H (<1.0) mg/dL 12/28/23 Range/Units 05:45 WBC 15.98 H (4.50-10.00) X 10*3/uL RBC 3.91 L (4.10-5.20) X 10*6/uL Hgb 11.3 L (12.0-15.0) g/dL Hct 34.1 L (37.2-46.3) % MPV 8.7 L (9.5-12.2) FL Immature Gran # (0.00-0.04) X 10*3/uL Neutrophils # (1.80-7.70) X 10*3/uL Monocytes # (0.20-1.00) X 10*3/uL Eosinophils # (0.04-0.35) X 10*3/uL Basophils # (0.00-0.10) X 10*3/uL Chloride (98-107) mmol/L BUN (7-17) mg/dL Creatinine (0.52-1.04) mg/dL C-Reactive Protein (<1.0) mg/dL Microbiology - Last 24 Hours (Table) 12/24/23 11:21 Blood Culture - Preliminary Blood Assessment and Plan Assessment: Right knee cellulitis Plan: The patient's exam this morning is most consistent with cellulitis. There is no fluctuance or fluid collection in the prepatellar bursa on exam this morning so the patient would not benefit from I&D at this time. I have no plans for surgical debridement. I'd recommend warm compresses and antibiotics per ID. We will continue to follow and reassess if her condition worsens. Her NPO diet order can be canceled and she can resume her prior diet.
[2023-12-28 11:36] LABS: Basophils # (A) 0.12 X 10*3/uL (0.00-0.10); Basophils % (A) 0.8 %; Eosinophils # (A) 0.46 X 10*3/uL (0.04-0.35); Eosinophils % (A) 2.9 %; Monocytes # (A) 1.52 X 10*3/uL (0.20-1.00); Monocytes % (A) 9.5 %; Neutrophils # (A) 9.97 X 10*3/uL (1.80-7.70); Neutrophils % (A) 62.4 %
--- NOTE | 2023-12-28 16:11 | P.PN ---
Subjective Progress Note Date: 12/28/23 Principal diagnosis: Reason for follow-up is left knee septic prepatellar bursitis Patient is a 83-year-old female with a past medical history significant for hypertension reflux angina diverticular disease patient was admitted to hospital with left knee pain swelling redness has been diagnosed with left knee prepatellar bursitis/cellulitis On today's evaluation that is 12/28/2023, Patient is afebrile patient is currently on room air and denies having any shortness of breath, the patient denies any chest pain or cough, the patient denies any nausea vomiting did not have any abdominal pain and no diarrhea, pain to left knee has slight decreased intensity. Patient white consult 15.98, creatinine is 1.10 Objective - Vital Signs Vital signs: Vital Signs Temp 98.6 F 12/28/23 14:30 Pulse 82 12/28/23 14:30 Resp 19 12/28/23 14:30 BP 147/75 12/28/23 14:30 Pulse Ox 97 12/28/23 14:30 FiO2 Intake & Output 12/27/23 12/28/23 12/28/23 18:59 06:59 18:59 Intake Total 354 118 Balance 354 118 Intake: Oral 354 118 Other: Voiding Method Toilet # Voids 4 4 2 # Bowel Movements 1 - Exam GENERAL DESCRIPTION: An elderly female lying in bed in no distress RESPIRATORY SYSTEM: Unlabored breathing , decreased breath sounds at bases HEART: S1 S2 regular rate and rhythm , ABDOMEN: Soft , no tenderness EXTREMITIES: Left knee swelling redness slightly decreased no drainage - Labs CBC & Chem 7: 12/28/23 05:45 12/28/23 05:45 Labs: Abnormal Lab Results - Last 24 Hours (Table) 12/28/23 12/28/23 Range/Units 05:45 05:45 WBC 15.98 H (4.50-10.00) X 10*3/uL RBC 3.91 L (4.10-5.20) X 10*6/uL Hgb 11.3 L (12.0-15.0) g/dL Hct 34.1 L (37.2-46.3) % MPV 8.7 L (9.5-12.2) FL Immature Gran # 0.71 H (0.00-0.04) X 10*3/uL Neutrophils # 9.97 H (1.80-7.70) X 10*3/uL Monocytes # 1.52 H (0.20-1.00) X 10*3/uL Eosinophils # 0.46 H (0.04-0.35) X 10*3/uL Basophils # 0.12 H (0.00-0.10) X 10*3/uL Chloride 108 H (98-107) mmol/L BUN 19 H (7-17) mg/dL Creatinine 1.10 H (0.52-1.04) mg/dL C-Reactive Protein 6.4 H (<1.0) mg/dL Microbiology - Last 24 Hours (Table) 12/24/23 11:21 Blood Culture - Preliminary Blood Assessment and Plan (1) Septic prepatellar bursitis of right knee Current Visit: Yes Status: Acute Code(s): M71.161 - OTHER INFECTIVE BURSITIS, RIGHT KNEE SNOMED Code(s): 4335637080450000 (2) Allergy to cephalosporin Current Visit: Yes Status: Acute Code(s): Z88.1 - ALLERGY STATUS TO OTHER ANTIBIOTIC AGENTS SNOMED Code(s): 233588762 (3) Cellulitis of left knee Current Visit: Yes Status: Acute Code(s): L03.116 - CELLULITIS OF LEFT LOWER LIMB SNOMED Code(s): 49613970728299738 (4) Failure of outpatient treatment Current Visit: Yes Status: Acute Code(s): Z78.9 - OTHER SPECIFIED HEALTH STATUS SNOMED Code(s): 058099273 Plan: 1patient presented to hospital with left knee pain swelling and redness suspicious for septic prepatellar bursitis failing outpatient oral antibiotic therapy. 2patient with cephalexin allergy that will limit the number of antibiotics safe to use. 3patient has been eval by therapy recommending no I&D for now continue with the vancomycin we will need a midline and a short course of IV daptomycin on discharge Dictation was produced using [employer] dictation software. please excuse any grammatical, word or spelling errors. Time with Patient: Less than 30
[2023-12-28 18:57] LABS: Erythrocyte Sedimentation Rate 68 mm/Hr (0-30)
--- NOTE | 2023-12-28 19:44 | P.PN ---
Subjective 83-year-old female presents to the emergency department with chief complaint of left knee pain. She reports that a week and a half ago she had a scab that progressively became red and swollen. She received antibiotics for which she is not sure the name of and shortly after developed leg weakness so her physician started her on amoxicillin left knee pain has progressively gotten worse with redness extending into the inner thigh which is associated with nausea, vomiting, and fever. She reports full range of motion to left knee, denies shortness of breath, chest pain, and syncope. Admitted patient found to have significant leukocytosis, elevated CRP. Patient does have full range of motion of the joint with minimal discomfort. [place] less likely to be septic joint. Patient was started on vancomycin patient will need ID consult patient had repeat laboratory studies and further management 12/24 Patient left knee cellulitis improving slowly and gradually She still has extensive cellulitis but is regressing compared to the demarcated line, she has a small dried scab in the middle. No purulent discharge No joint swelling. She remains on IV antibiotics per ID team. Currently on IV vancomycin. She was on Augmentin at home which was discontinued upon admission. She still extensive leukocytosis 25 down to 23,000. Hemoglobin down 14 down to 11.6 with elements of hemodilution. Sodium 133, potassium 3.4 being replaced. Liver enzymes not elevated. 1013 Patient left knee cellulitis improving slowly and gradually Hemoglobin stable Leukocytosis improving down to 20K Creatinine went up to 1.2, will restart the patient on normal saline and check creatinine tomorrow if worse will consider nephrology consult In the meantime we will check urine analysis which was normal, will check postvoid residual which was not elevated at 120 mL Patient continue with antibiotics per ID team, currently on IV vancomycin Discussed with the staff 12/26 Patient has more localized area of significant inflammation including redness swelling and tenderness, mainly above the knee. Suspicious for bursitis, orthopedic team are planning for I&D tomorrow Kidney level and function monitored, creatinine better today 1.21. Patient continued on normal saline 75 mL/h. Patient continued on IV vancomycin pending final results of culture per ID team. Risk of nephrotoxicity explained for the patient in details and she is aware and stated back to me. Patient agreeable with the current plan. UA is negative and reviewed, bladder scan is negative with a postvoid residual at 120. Patient still have significant leukocytosis at 19,000. 12/27 Patient left knee cellulitis continue to improve slowly and gradually. She still have significant cellulitis on the top of her knee with warmth tenderness and swelling However the swelling is not to the degree that required I&D as per orthopedic team. Currently continued with IV vancomycin. Plan for midline and short course of daptomycin per ID team recommendation. Plan discussed with the patient with risk-benefit and she agrees Active Medications Generic Name Dose Route Start Last Admin Trade Name Freq PRN Reason Stop Dose Admin Hydrocodone Bitart/Acetaminophen 1 each 12/24/23 13:35 12/27/23 20:39 Hydrocodone/Apap 10-325mg 1 Each Tab PO 1 each TID PRN Administration Pain Amlodipine Besylate 5 mg 12/25/23 09:00 12/27/23 09:47 Amlodipine 5 Mg Tab PO 5 mg DAILY STEFF Administration Gabapentin 200 mg 12/25/23 17:30 12/27/23 20:39 Gabapentin 100 Mg Cap PO 200 mg BID STEFF Administration Hydromorphone HCl 0.5 mg 12/24/23 13:14 12/25/23 01:14 Hydromorphone 0.5 Mg/0.5 Ml Syringe IVP 0.5 mg Q3HR PRN Administration Moderate Pain (Scale 4 to 6) Hydromorphone HCl 1 mg 12/24/23 13:14 Hydromorphone 1 Mg/Ml 1 Ml Syringe IVP Q3HR PRN Severe Pain (Scale 7 to 10) Sodium Chloride 1,000 mls @ 75 mls/hr 12/26/23 18:00 12/27/23 20:43 Saline 0.9% IV 75 mls/hr .[id number] STEFF Administration Vancomycin HCl 1,500 mg/ 500 mls @ 167 mls/hr 12/28/23 09:00 Sodium Chloride IVPB Q24HR STEFF Losartan Potassium 100 mg 12/25/23 09:00 12/27/23 09:47 Losartan 50 Mg Tab PO 100 mg DAILY STEFF Administration Naloxone HCl 0.2 mg 12/24/23 13:14 Naloxone 0.4 Mg/Ml 1 Ml Vial IV Q2M PRN Opioid Reversal Ondansetron HCl 4 mg 12/24/23 13:14 Ondansetron 4 Mg/2 Ml Vial IVP Q8HR PRN Nausea And Vomiting Objective - Vital Signs Vital signs: Vital Signs Temp 98.6 F 12/28/23 14:30 Pulse 82 12/28/23 14:30 Resp 19 12/28/23 14:30 BP 147/75 12/28/23 14:30 Pulse Ox 97 12/28/23 14:30 FiO2 Intake & Output 12/28/23 12/28/23 12/29/23 06:59 18:59 06:59 Intake Total 236 Balance 236 Intake: Oral 236 Other: Voiding Method Toilet # Voids 4 2 # Bowel Movements 1 - Exam GENERAL: The patient is alert and oriented x3, not in any acute distress. Well developed, well nourished. HEENT: Pupils are round and equally reacting to light. EOMI. No scleral icterus. No conjunctival pallor. Normocephalic, atraumatic. No pharyngeal erythema. No thyromegaly. CARDIOVASCULAR: S1 and S2 present. No murmurs, rubs, or gallops. PULMONARY: Chest is clear to auscultation, no wheezing , no crackles. ABDOMEN: Soft, nontender, nondistended, normoactive bowel sounds. No palpable organomegaly. MUSCULOSKELETAL: No joint swelling or deformity. -EXTREMITIES: No cyanosis, clubbing, or pedal edema. Left knee cellulitis with central dry scab, small 1. Improving slowly NEUROLOGICAL: Gross neurological examination did not reveal any focal deficits. SKIN: No rashes. no petechiae. - Labs CBC & Chem 7: 12/28/23 05:45 12/28/23 05:45 Labs: Abnormal Lab Results - Last 24 Hours (Table) 12/28/23 12/28/23 Range/Units 05:45 05:45 WBC 15.98 H (4.50-10.00) X 10*3/uL RBC 3.91 L (4.10-5.20) X 10*6/uL Hgb 11.3 L (12.0-15.0) g/dL Hct 34.1 L (37.2-46.3) % MPV 8.7 L (9.5-12.2) FL Immature Gran # 0.71 H (0.00-0.04) X 10*3/uL Neutrophils # 9.97 H (1.80-7.70) X 10*3/uL Monocytes # 1.52 H (0.20-1.00) X 10*3/uL Eosinophils # 0.46 H (0.04-0.35) X 10*3/uL Basophils # 0.12 H (0.00-0.10) X 10*3/uL ESR 68 H (0-30) mm/Hr Chloride 108 H (98-107) mmol/L BUN 19 H (7-17) mg/dL Creatinine 1.10 H (0.52-1.04) mg/dL C-Reactive Protein 6.4 H (<1.0) mg/dL Microbiology - Last 24 Hours (Table) 12/24/23 11:21 Blood Culture - Preliminary Blood Assessment and Plan Assessment: 1. Cellulitis LLE; failing out patient treatment. Acute septic bursitis of the left knee is suspected -- WBC markedly elevated upon presentation to ED --patient has been initiated in IV Vancomycin with pharmacy dosing service - will monitor CBC, CRP and procalcitonin -- will consult ID for further recommendations --By orthopedic team, no need for I&D -- Patient will be discharged on daptomycin and PICC line per ID team 2. Leukocytosis; likely related to cellulitis; will repeat and trend -- blood cultures ordered and pending 3. Hypertension; takes Norvasc and losartan; will resume 4. Acute kidney injury -- Will check urine analysis and bladder scan and they were unremarkable -- Start the patient on normal saline 75 mL/h -- Monitor creatinine level tomorrow, if no improvement or worsening then consider nephrology consult DVT Prophylaxis; SCDs Code Status; Full Code
[2023-12-29 05:08] LABS: African American GFR (CKD) 58 (>60 ml/min/1.73 sqM); Non-African American GFR(CKD) 50 (>60 ml/min/1.73 sqM)
--- NOTE | 2023-12-29 15:43 | P.PN ---
Subjective Progress Note Date: 12/29/23 Principal diagnosis: Left knee cellulitis Patient is resting sitting up on the edge of bed. She states that her knee continues to feel better today. Objective - Vital Signs Vital signs: Vital Signs Temp 98.9 F 12/29/23 14:00 Pulse 75 12/29/23 14:00 Resp 16 12/29/23 14:00 BP 131/70 12/29/23 14:00 Pulse Ox 93 L 12/29/23 14:00 FiO2 Intake & Output 12/28/23 12/29/23 12/29/23 18:59 06:59 18:59 Intake Total 236 480 Balance 236 480 Intake: Oral 236 480 Other: Voiding Method Toilet # Voids 2 2 2 # Bowel Movements 1 - Exam Resting comfortably in bed. NAD. AAOx3 LEFT LOWER EXTREMITY: On inspection of the left knee there is erythema and warmth over the anterior knee. There is no fluctuance or fluid over the anterior left knee. There is no knee effusion. There is no pain with PROM of the left knee. Femoral nerve function is intact. Patient is able to dorsiflex and plantarflex her ankles and toes. Foot appears well-perfused, pink, with brisk capillary refill. - Labs CBC & Chem 7: 12/28/23 05:45 12/29/23 04:14 Labs: Abnormal Lab Results - Last 24 Hours (Table) 12/28/23 12/29/23 Range/Units 05:45 04:14 ESR 68 H (0-30) mm/Hr Creatinine 1.05 H (0.52-1.04) mg/dL Assessment and Plan Assessment: Left knee cellulitis Plan: The patient's exam today continues to be most consistent with left knee cellulitis. There is no fluctuance or fluid collection in the prepatellar bursa on exam so the patient would not benefit from I&D at this time. Continue to recommend warm compresses and antibiotics per ID. We do not plan on any orthopedic surgical interventions at this time. Patient may discharge from an orthopedic standpoint when cleared by medical team. Thank you for the consult.
[2023-12-29] MEDS: NITROGLYCERIN SL TABS 0.4 MG TAB SUBLINGUAL PRN (20:01)
[2023-12-29] MEDS: PANTOPRAZOLE 40 MG/10 ML VIAL IVP ONE (20:01)
--- NOTE | 2023-12-29 23:37 | P.PN ---
Subjective 83-year-old female presents to the emergency department with chief complaint of left knee pain. She reports that a week and a half ago she had a scab that progressively became red and swollen. She received antibiotics for which she is not sure the name of and shortly after developed leg weakness so her physician started her on amoxicillin left knee pain has progressively gotten worse with redness extending into the inner thigh which is associated with nausea, vomiting, and fever. She reports full range of motion to left knee, denies shortness of breath, chest pain, and syncope. Admitted patient found to have significant leukocytosis, elevated CRP. Patient does have full range of motion of the joint with minimal discomfort. [place] less likely to be septic joint. Patient was started on vancomycin patient will need ID consult patient had repeat laboratory studies and further management 12/24 Patient left knee cellulitis improving slowly and gradually She still has extensive cellulitis but is regressing compared to the demarcated line, she has a small dried scab in the middle. No purulent discharge No joint swelling. She remains on IV antibiotics per ID team. Currently on IV vancomycin. She was on Augmentin at home which was discontinued upon admission. She still extensive leukocytosis 25 down to 23,000. Hemoglobin down 14 down to 11.6 with elements of hemodilution. Sodium 133, potassium 3.4 being replaced. Liver enzymes not elevated. 1013 Patient left knee cellulitis improving slowly and gradually Hemoglobin stable Leukocytosis improving down to 20K Creatinine went up to 1.2, will restart the patient on normal saline and check creatinine tomorrow if worse will consider nephrology consult In the meantime we will check urine analysis which was normal, will check postvoid residual which was not elevated at 120 mL Patient continue with antibiotics per ID team, currently on IV vancomycin Discussed with the staff 12/26 Patient has more localized area of significant inflammation including redness swelling and tenderness, mainly above the knee. Suspicious for bursitis, orthopedic team are planning for I&D tomorrow Kidney level and function monitored, creatinine better today 1.21. Patient continued on normal saline 75 mL/h. Patient continued on IV vancomycin pending final results of culture per ID team. Risk of nephrotoxicity explained for the patient in details and she is aware and stated back to me. Patient agreeable with the current plan. UA is negative and reviewed, bladder scan is negative with a postvoid residual at 120. Patient still have significant leukocytosis at 19,000. 12/27 Patient left knee cellulitis continue to improve slowly and gradually. She still have significant cellulitis on the top of her knee with warmth tenderness and swelling However the swelling is not to the degree that required I&D as per orthopedic team. Currently continued with IV vancomycin. Plan for midline and short course of daptomycin per ID team recommendation. Plan discussed with the patient with risk-benefit and she agrees 12/28 Patient is starting left knee cellulitis improving slowly and gradually Plan for PICC line and IV antibiotics upon discharge, patient and daughter at bedside agreeable All questions answered Possible discharge in 24 to 48 hours Objective - Vital Signs Vital signs: Vital Signs Temp 98.9 F 12/29/23 14:00 Pulse 75 12/29/23 14:00 Resp 16 12/29/23 14:00 BP 131/70 12/29/23 14:00 Pulse Ox 93 L 12/29/23 14:00 FiO2 Intake & Output 12/29/23 12/29/23 12/30/23 06:59 18:59 06:59 Intake Total 598 Balance 598 Intake: Oral 598 Other: Voiding Method Toilet # Voids 2 2 - Exam GENERAL: The patient is alert and oriented x3, not in any acute distress. Well developed, well nourished. HEENT: Pupils are round and equally reacting to light. EOMI. No scleral icterus. No conjunctival pallor. Normocephalic, atraumatic. No pharyngeal erythema. No thyromegaly. CARDIOVASCULAR: S1 and S2 present. No murmurs, rubs, or gallops. PULMONARY: Chest is clear to auscultation, no wheezing , no crackles. ABDOMEN: Soft, nontender, nondistended, normoactive bowel sounds. No palpable organomegaly. MUSCULOSKELETAL: No joint swelling or deformity. -EXTREMITIES: No cyanosis, clubbing, or pedal edema. Left knee cellulitis with central dry scab, small 1. Improving slowly NEUROLOGICAL: Gross neurological examination did not reveal any focal deficits. SKIN: No rashes. no petechiae. - Labs CBC & Chem 7: 12/28/23 05:45 12/29/23 04:14 Labs: Abnormal Lab Results - Last 24 Hours (Table) 12/29/23 Range/Units 04:14 Creatinine 1.05 H (0.52-1.04) mg/dL Microbiology - Last 24 Hours (Table) 12/24/23 11:21 Blood Culture - Final Blood Assessment and Plan Assessment: 1. Cellulitis LLE; failing out patient treatment. Acute septic bursitis of the left knee is suspected -- WBC markedly elevated upon presentation to ED --patient has been initiated in IV Vancomycin with pharmacy dosing service - will monitor CBC, CRP and procalcitonin -- will consult ID for further recommendations --By orthopedic team, no need for I&D -- Patient will be discharged on daptomycin and PICC line per ID team 2. Leukocytosis; likely related to cellulitis; will repeat and trend -- blood cultures ordered and pending 3. Hypertension; takes Norvasc and losartan; will resume 4. Acute kidney injury -- Will check urine analysis and bladder scan and they were unremarkable -- Start the patient on normal saline 75 mL/h -- Monitor creatinine level tomorrow, if no improvement or worsening then consider nephrology consult DVT Prophylaxis; SCDs Code Status; Full Code
[2023-12-30] MEDS: PANTOPRAZOLE 40 MG TABLET PO SCH (05:19)
[2023-12-30 06:01] LABS: African American GFR (CKD) 55 (>60 ml/min/1.73 sqM); Non-African American GFR(CKD) 48 (>60 ml/min/1.73 sqM)
--- NOTE | 2023-12-30 09:59 | P.CRDCN ---
History of Present Illness History of present illness: HISTORY OF PRESENT ILLNESS: This is a 82-year-old female with a past medical history significant for hypertension. Patient presented with left knee swelling and erythema and pain. She was diagnosed with cellulitis with significant white blood cell count and therefore has been admitted to the hospital with IV antibiotics. She has been doing fairly well however developed chest pain last night she was sleeping. She rolled over to the other side and initially was not missing anything however discussed this with nurse and therefore EKG was performed with minimal T-wave inversions 2 and 3 and no other significant abnormalities. She did have heart catheterization from 08/2023 when she presented with chest pain. This revealed normal coronary arteries and also had normal echo at the time. She denies any recurrence of chest pain. No significant shortness breath. DIAGNOSTICS: - EKG reveals sinus mechanism with T wave inversions in inferior leads and precordial leads, new from 2022 - Chest xray negative for acute process - Chest CT: Negative for pulmonary embolism - Laboratory data: WBC 11.2. Hemoglobin 14.0. Platelet count 293. D-dimer 0.81. Sodium 141. Potassium 4.4. BUN 25. Creatinine 1.02. Magnesium 1.9. Troponin negative x 3. proBNP 338. - Current home cardiac medications include amlodipine 5 mg daily, clonidine 0.1 mg 3 times a day as needed, losartan 100 mg daily. - Most recent echocardiogram obtained in May 2023 revealing ejection fraction 55 to 60%, trace MR - Cardiac catheterization history: 08/2023 revealing no significant CAD - Patient underwent Lexiscan stress test on 05/17/2023 which was negative for reversible ischemia REVIEW OF SYSTEMS: At the time of my exam: CONSTITUTIONAL: Denies fever or chills. HEENT: Denies blurred vision, vision changes, or eye pain. Denies hemoptysis CARDIOVASCULAR: +chest pain. Denies orthopnea. Denies PND. Denies palpitations RESPIRATORY: Denies shortness of breath. GASTROINTESTINAL: Denies abdominal pain. Denies nausea or vomiting. HEMATOLOGIC: Denies bleeding disorders. GENITOURINARY: Denies any blood in urine. SKIN: Denies pruitis. Denies rash. PHYSICAL EXAM: VITAL SIGNS: Reviewed. GENERAL: Well-developed in no acute distress. HEENT: Head is normocephalic. Pupils are equal, round. Sclerae anicteric. Mucous membranes of the mouth are moist. Neck supple. No JVD or thyromegaly LUNGS: Respirations even and unlabored. Lungs essentially clear to auscultation bilaterally. HEART: Regular rate and rhythm. S1 and S2 heard. ABDOMEN: Soft. Nondistended. Nontender. EXTREMITIES: Normal range of motion. No clubbing or cyanosis. Peripheral pulses intact. No lower extremity edema NEUROLOGIC: Awake and alert. Oriented x 3. ASSESSMENT: Cellulitis Chest pain Hypertension Normal coronary arteries, per cath in 09/05 Obesity: BMI 34.2 PLAN: Chest pain is reproducible on exam and noncardiac. Patient additionally had normal heart catheterization 08/2023. No further workup required from a cardiac standpoint. Please call with any questions Past Medical History Past Medical History: Chest Pain / Angina, GERD/Reflux, Hypertension, Pneumonia Additional Past Medical History / Comment(s): left ankle pain, DIVERTICULAR DISEASE,ARTHRITIS, Vertigo History of Any Multi-Drug Resistant Organisms: None Reported Past Surgical History: Appendectomy, Bladder Surgery, Heart Catheterization, Hysterectomy Additional Past Surgical History / Comment(s): BOWEL RESECTION, UMB HERNIA REPAIR, MILLER CATARACTS,COLONOSCOPY Past Anesthesia/Blood Transfusion Reactions: Motion Sickness Past Psychological History: Anxiety Smoking Status: Never smoker Past Alcohol Use History: None Reported Past Drug Use History: None Reported - Past Family History Mother Family Medical History: CVA/TIA, Dementia, Hypertension, Seizure Disorder Additional Family Medical History / Comment(s): AT AGE 83 Father Family Medical History: Diabetes Mellitus, Hypertension Additional Family Medical History / Comment(s): HERNIA Medications and Allergies Home Medications Medication Instructions Recorded Confirmed Type HYDROcodone/APAP 10-325MG [[place] 1 tab PO TID PRN 05/19/22 12/24/23 History 10-325] Losartan Potassium [Cozaar] 100 mg PO DAILY 05/19/22 12/24/23 History amLODIPine [Norvasc] 5 mg PO DAILY 08/29/23 12/24/23 History Amoxic-Pot Clav 875-125Mg 1 tab PO BID 12/24/23 12/24/23 History [Augmentin 875-125] Allergies Allergy/AdvReac Type Severity Reaction Status Date / Time cephalexin [From Keflex] AdvReac Unknown Verified 12/24/23 12:53 Physical Exam Vitals: Vital Signs Temp Pulse Resp BP Pulse Ox 12/30/23 07:29 98.3 F 80 19 159/79 96 12/30/23 02:30 98.8 F 74 18 135/77 98 12/29/23 20:25 98.9 F 91 18 137/58 95 12/29/23 19:40 97 18 152/88 97 12/29/23 14:00 98.9 F 75 16 131/70 93 L Intake and Output 12/29/23 12/30/23 12/30/23 22:59 06:59 14:59 Intake Total 598 0 Balance 598 0 Intake: Oral 598 0 Other: Voiding Method Toilet # Voids 2 3 Results 12/28/23 05:45 12/30/23 05:10 Cardiac Enzymes 12/29/23 Range/Units 20:12 Troponin I <0.012 (0.000-0.034) ng/mL Comprehensive Metabolic Panel 12/30/23 Range/Units 05:10 Creatinine 1.09 H (0.52-1.04) mg/dL Current Medications Generic Name Dose Route Start Last Admin Trade Name Freq PRN Reason Stop Dose Admin Hydrocodone Bitart/Acetaminophen 1 each 12/24/23 13:35 12/30/23 08:48 Hydrocodone/Apap 10-325mg 1 Each Tab PO 1 each TID PRN Administration Pain Amlodipine Besylate 5 mg 12/25/23 09:00 12/30/23 08:42 Amlodipine 5 Mg Tab PO 5 mg DAILY STEFF Administration Gabapentin 200 mg 12/25/23 17:30 12/30/23 08:42 Gabapentin 100 Mg Cap PO 200 mg BID STEFF Administration Hydromorphone HCl 0.5 mg 12/24/23 13:14 12/25/23 01:14 Hydromorphone 0.5 Mg/0.5 Ml Syringe IVP 0.5 mg Q3HR PRN Administration Moderate Pain (Scale 4 to 6) Hydromorphone HCl 1 mg 12/24/23 13:14 Hydromorphone 1 Mg/Ml 1 Ml Syringe IVP Q3HR PRN Severe Pain (Scale 7 to 10) Sodium Chloride 1,000 mls @ 75 mls/hr 12/26/23 18:00 12/30/23 04:02 Saline 0.9% IV 75 mls/hr .[id number] STEFF Administration Vancomycin HCl 1,500 mg/ 500 mls @ 167 mls/hr 12/28/23 09:00 12/30/23 08:42 Sodium Chloride IVPB 167 mls/hr Q24HR STEFF Administration Losartan Potassium 100 mg 12/25/23 09:00 12/30/23 08:42 Losartan 50 Mg Tab PO 100 mg DAILY STEFF Administration Naloxone HCl 0.2 mg 12/24/23 13:14 Naloxone 0.4 Mg/Ml 1 Ml Vial IV Q2M PRN Opioid Reversal Nitroglycerin 0.4 mg 12/29/23 19:49 12/29/23 20:01 Nitroglycerin Sl Tabs 0.4 Mg Tab SUBLINGUAL 0.4 mg Q5M PRN Administration Chest Pain Ondansetron HCl 4 mg 12/24/23 13:14 Ondansetron 4 Mg/2 Ml Vial IVP Q8HR PRN Nausea And Vomiting Pantoprazole Sodium 40 mg 12/30/23 07:30 12/30/23 05:19 Pantoprazole 40 Mg Tablet PO 40 mg AC-BID STEFF Administration Intake and Output 12/29/23 12/30/23 12/30/23 22:59 06:59 14:59 Intake Total 598 0 Balance 598 0 Intake: Oral 598 0 Other: Voiding Method Toilet # Voids 2 3 12/28/23 05:45 12/30/23 05:10
--- NOTE | 2023-12-30 12:41 | P.PN ---
Subjective Progress Note Date: 12/29/23 Principal diagnosis: Reason for follow-up is left knee septic prepatellar bursitis Patient is a 83-year-old female with a past medical history significant for hypertension reflux angina diverticular disease patient was admitted to hospital with left knee pain swelling redness has been diagnosed with left knee prepatellar bursitis/cellulitis On today's evaluation that is 12/29/2023, patient has been afebrile, patient is breathing comfortably and is currently on room air, patient denies having any significant cough no chest pain, patient denies nausea vomiting or diarrhea and no abdominal pain, pain to the left knee has decreased in intensity. Patient did not have CBC done today creatinine is 1.05 blood culture negative Objective - Vital Signs Vital signs: Vital Signs Temp 98.6 F 12/29/23 07:00 Pulse 74 12/29/23 07:00 Resp 16 12/29/23 07:00 BP 137/76 12/29/23 07:00 Pulse Ox 96 12/29/23 07:00 FiO2 Intake & Output 12/28/23 12/29/23 12/29/23 18:59 06:59 18:59 Intake Total 236 Balance 236 Intake: Oral 236 Other: Voiding Method Toilet # Voids 2 2 1 # Bowel Movements 1 - Exam GENERAL DESCRIPTION: An elderly female lying in bed in no distress RESPIRATORY SYSTEM: Unlabored breathing , decreased breath sounds at bases HEART: S1 S2 regular rate and rhythm , ABDOMEN: Soft , no tenderness EXTREMITIES: Left knee swelling redness slightly decreased no drainage - Labs CBC & Chem 7: 12/28/23 05:45 12/30/23 05:10 Labs: Abnormal Lab Results - Last 24 Hours (Table) 12/28/23 12/29/23 Range/Units 05:45 04:14 ESR 68 H (0-30) mm/Hr Creatinine 1.05 H (0.52-1.04) mg/dL Assessment and Plan (1) Septic prepatellar bursitis of right knee Current Visit: Yes Status: Acute Code(s): M71.161 - OTHER INFECTIVE BURSITIS, RIGHT KNEE SNOMED Code(s): 4122657550293554 (2) Allergy to cephalosporin Current Visit: Yes Status: Acute Code(s): Z88.1 - ALLERGY STATUS TO OTHER ANTIBIOTIC AGENTS SNOMED Code(s): 330895985 (3) Cellulitis of left knee Current Visit: Yes Status: Acute Code(s): L03.116 - CELLULITIS OF LEFT LOWER LIMB SNOMED Code(s): 59694795382505905 (4) Failure of outpatient treatment Current Visit: Yes Status: Acute Code(s): Z78.9 - OTHER SPECIFIED HEALTH STATUS SNOMED Code(s): 814429842 Plan: 1patient presented to hospital with left knee pain swelling and redness suspicious for septic prepatellar bursitis failing outpatient oral antibiotic therapy. 2patient with cephalexin allergy that will limit the number of antibiotics safe to use. 3patient has been eval by orthopedics recommending no I&D for now continue with the vancomycin, keeping in mind extensive infection will benefit from IV daptomycin on discharge Dictation was produced using [employer] [place] dictation software. please excuse any grammatical, word or spelling errors. Time with Patient: Less than 30
--- NOTE | 2023-12-30 13:23 | P.PN ---
Subjective Progress Note Date: 12/30/23 Principal diagnosis: Reason for follow-up is left knee septic prepatellar bursitis Patient is a 83-year-old female with a past medical history significant for hypertension reflux angina diverticular disease patient was admitted to hospital with left knee pain swelling redness has been diagnosed with left knee prepatellar bursitis/cellulitis On today's evaluation that is 12/30/2023, the patient continues to be afebrile, the patient is on room air and breathing comfortably, the Pt denies having any chest pain or cough, the patient denies having any abdominal pain no vomiting or any diarrhea, the patient pain to the left knee has decreased intensity patient did get a midline. Patient did have abdominal creatinine 1.09 no CBC was done today blood culture have been negative Objective - Vital Signs Vital signs: Vital Signs Temp 98.3 F 12/30/23 07:29 Pulse 80 12/30/23 07:29 Resp 19 12/30/23 07:29 BP 159/79 12/30/23 07:29 Pulse Ox 96 12/30/23 07:29 FiO2 Intake & Output 12/29/23 12/30/23 12/30/23 18:59 06:59 18:59 Intake Total 598 0 Balance 598 0 Intake: Oral 598 0 Other: Voiding Method Toilet # Voids 2 3 - Exam GENERAL DESCRIPTION: An elderly female lying in bed in no distress RESPIRATORY SYSTEM: Unlabored breathing , decreased breath sounds at bases HEART: S1 S2 regular rate and rhythm , ABDOMEN: Soft , no tenderness EXTREMITIES: Left knee swelling redness slightly decreased no drainage - Labs CBC & Chem 7: 12/28/23 05:45 12/30/23 05:10 Labs: Abnormal Lab Results - Last 24 Hours (Table) 12/30/23 Range/Units 05:10 Creatinine 1.09 H (0.52-1.04) mg/dL Microbiology - Last 24 Hours (Table) 12/24/23 11:21 Blood Culture - Final Blood Assessment and Plan (1) Septic prepatellar bursitis of right knee Current Visit: Yes Status: Acute Code(s): M71.161 - OTHER INFECTIVE BURSITIS, RIGHT KNEE SNOMED Code(s): 4101141817195116 (2) Allergy to cephalosporin Current Visit: Yes Status: Acute Code(s): Z88.1 - ALLERGY STATUS TO OTHER ANTIBIOTIC AGENTS SNOMED Code(s): 037526542 (3) Cellulitis of left knee Current Visit: Yes Status: Acute Code(s): L03.116 - CELLULITIS OF LEFT LOWER LIMB SNOMED Code(s): 81472819771205167 (4) Failure of outpatient treatment Current Visit: Yes Status: Acute Code(s): Z78.9 - OTHER SPECIFIED HEALTH STATUS SNOMED Code(s): 980122601 Plan: 1patient presented to hospital with left knee pain swelling and redness suspicious for septic prepatellar bursitis failing outpatient oral antibiotic therapy. 2patient with cephalexin allergy that will limit the number of antibiotics safe to use. 3patient has been eval by orthopedics recommending no I&D 4patient did have extensive prepatellar bursitis septic and slow clinical response she get a midline will switch antibiotic daptomycin plan is for 10-day course on discharge and close outpatient follow-up Family at the bedside questions answered Dictation was produced using [employer] dictation software. please excuse any grammatical, word or spelling errors. Time with Patient: Less than 30
[2023-12-30 14:17] VITALS: BP 145/82; PULSE 90; RESP 15; TEMP 97.9
--- NOTE | 2023-12-30 22:34 | P.DS ---
Providers Date of admission: 12/27/23 06:09 Attending physician: Robert Hill MD Consults: 12/24/23 13:28 Consult Physician Urgent Consulting Provider: Tari Ortega Consult Reason/Comments: Cellulitis Do you want consulting provider notified?: Yes 12/27/23 14:19 Consult Physician Routine Consulting Provider: Juan José Hsieh Consult Reason/Comments: L knee septic bursisits slow healing ?I&D Do you want consulting provider notified?: Yes Primary care physician: Racquel Chang Hospital Course: Diagnoses: Left knee cellulitis and septic bursitis. No surgical intervention needed. Patient will be discharged on IV antibiotic x 10 days Acute kidney injury, improved Leukocytosis secondary to above improving Anemia stable Elevated inflammatory markers Hospital course: 83-year-old female presents to the emergency department with chief complaint of left knee pain. Patient found to have acute left knee cellulitis and septic bursitis above the left knee. Evaluated by orthopedic team, no surgical intervention needed. ID team are following closely. She was receiving IV vancomycin. She showed interval improvement but not complete resolution she still have some areas with redness swelling and tenderness, but even the patient herself noticed improvement on the day of discharge. Patient got left upper arm PICC line placed. Patient will be discharged on daptomycin per ID team recommendation Patient no other new complaint and agreeable to go home today. Her daughter at bedside and she is agree. Patient was cleared for discharge by all consultants including ID team and orthopedic team Problems and management plan were discussed with the patient and he verbalized understanding and acceptance Patient was found stable and can be discharged home in guarded prognosis however he needs follow-up as an outpatient. Patient was instructed to follow up with PCP Dr. Chang within one week and patient agrees Patient was instructed to follow-up with ID team in 1 week and orthopedic team in 2 weeks Physical exam Gen: patient is a AAOx3, no distress CVS: S1-S2, RRR, no murmur Lungs: B/L CTA, no wheezing Abdomen: soft, no distention, no tenderness, positive bowel sounds Extremity: no leg edema or induration Time spent more than 35 minutes Patient Condition at Discharge: Fair Plan - Discharge Summary Discharge Rx Participant: No New Discharge Prescriptions: New DAPTOmycin [Cubicin] 300 mg IVPB Q24HR each Gabapentin [Neurontin] 200 mg PO BID cap Continue Losartan Potassium [Cozaar] 100 mg PO DAILY HYDROcodone/APAP 10-325MG [[place] 10-325] 1 tab PO TID PRN PRN Reason: Pain amLODIPine [Norvasc] 5 mg PO DAILY Discontinued Amoxic-Pot Clav 875-125Mg [Augmentin 875-125] 1 tab PO BID Discharge Medication List HYDROcodone/APAP 10-325MG [[place] 10-325] 1 tab PO TID PRN 05/19/22 [History] Losartan Potassium [Cozaar] 100 mg PO DAILY 05/19/22 [History] amLODIPine [Norvasc] 5 mg PO DAILY 08/29/23 [History] DAPTOmycin [Cubicin] 300 mg IVPB Q24HR each 12/30/23 [Rx] Gabapentin [Neurontin] 200 mg PO BID cap 12/30/23 [Rx] Follow up Appointment(s)/Referral(s): Racquel Chang DO [Primary Care Provider] - 1-2 days [facility], [REFERRING] - [facility] [NON-[facility]FF] - Tari Ortega MD [STAFF PHYSICIAN] - 1 Week Juan José Hsieh MD [Medical Doctor] - 01/13/24 10:00 am Patient Instructions/Handouts: Cellulitis (GEN) Activity/Diet/Wound Care/Special Instructions: Heart healthy diet Activity is restricted till you see your doctor Discharge Disposition: HOME WITH HOME HEALTH SERVICES
--- NOTE | 2024-01-12 20:33 | CDI ---
Documentation Clarification Form Date: 01/12/2024 08:24:11 PM From: Rasheeda Jones Phone: Admit Date: 12/27/2023 06:09:00 AM Patient Name: Celine Aaron Visit Number: [id number] Discharge Date: 12/30/2023 03:25:00 PM ATTENTION: The Clinical Documentation Specialists (CDI) and [facility] Coding Staff appreciate your assistance in clarifying documentation. Please respond to the clarification below the line at the bottom and electronically sign. The CDI & [facility] Coding staff will review the response and follow-up if needed. Please note: Queries are made part of the Legal Health Record. If you have any questions, please contact the author of this message via ITS. Doctor/Provider: Alejo E Sheet Conflicting documentation has been found in the medical record. As attending physician, please provide clarification. Acute septicbursitis of the left knee ED, Progress Notes and H&P Septicprepatellar bursitisof right knee Consult 12/23 and Progress Notes History/Risk Factors: 83yo F, Left knee cellulitisandsepticbursitis, VALE, leukocytosis, elevatedinflammatorymarkers, HTN, obesity Clinical Indicators: redness suspicious forsepticprepatellar bursitisfailing outpatient oral antibiotic therapy. Patient withcephalexin allergythat will limit the number of antibiotics safe to use. Treatment: Currently on IV vancomycin. She was on augmentin at home which was discontinued upon admission. Midline placed Please clarify which diagnosis is most appropriate: [ x ] Left Knee [ ] Right Knee [ ] Other (please specify) [ ] Unable to determine (Template Last Revised: May 2020) both H&P and discharge summary mention the left knee . as well as the xray imaging , thank you DINA
== END 2023-12-30 15:25 | disposition home health service (06) | DRG 558 ==
LOC: EC 10:33 → 6NMEDSUR 13:27 → OBSVTOIN 12-27 06:09
PROVIDERS: ADMIT Internal Medicine; ATTEND Internal Medicine
PROC: 05HC33Z Insertion of Infusion Device into Left Basilic Vein, Percutaneous Approach (ICD-10-PCS; principal; 2023-12-30 11:30)
DX: M70.52 Other bursitis of knee, left knee (principal); L03.116 Cellulitis of left lower limb; N17.9 Acute kidney failure, unspecified; E66.9 Obesity, unspecified; Z68.34 Body mass index [BMI] 34.0-34.9, adult; I10 Essential (primary) hypertension; D64.9 Anemia, unspecified; Z88.1 Allergy status to other antibiotic agents; Z79.899 Other long term (current) drug therapy
CPT/HCPCS: 36410; 36415; 76937; 80048; 80053; 80202; 81003; 82565; 83605; 84145; 84484; 85025; 85652; 86140; 87040; 96365; 96366; 96375; 99285

== ENCOUNTER 2024-01-05 16:59 | Inpatient (IN) | payer MEDICARE ==
[2024-01-05 18:28] LABS: Basophils # (A) 0.1 k/uL (0-0.2); Basophils % (A) 1 %; Eosinophils # (A) 0.3 k/uL (0-0.7); Eosinophils % (A) 3 %; HCT 33.7 % (34.0-46.0); HGB 11.2 gm/dL (11.4-16.0); Lymphocytes # (A) 2.1 k/uL (1.0-4.8); Lymphocytes % (A) 23 %; MCH 29.1 pg (25.0-35.0); MCHC 33.1 g/dL (31.0-37.0); MCV 87.7 fL (80.0-100.0); Monocytes # (A) 0.3 k/uL (0-1.0); Monocytes % (A) 4 %; Neutrophils # (A) 6.1 k/uL (1.3-7.7); Neutrophils % (A) 68 %; RBC 3.85 m/uL (3.80-5.40); RDW 13.6 % (11.5-15.5); WBC 9.1 k/uL (3.8-10.6)
[2024-01-05 18:34] LABS: ALT 14 U/L (4-34); AST 24 U/L (14-36); African American GFR (CKD) 17 (>60 ml/min/1.73 sqM); Albumin 3.5 g/dL (3.5-5.0); Alkaline Phosphatase 92 U/L (38-126); Anion Gap 9 mmol/L; Blood Urea Nitrogen 37 mg/dL (7-17); Calcium 8.8 mg/dL (8.4-10.2); Carbon Dioxide 25 mmol/L (22-30); Chloride 105 mmol/L (98-107); Glucose 128 mg/dL (74-99); Non-African American GFR(CKD) 15 (>60 ml/min/1.73 sqM); Potassium 4.7 mmol/L (3.5-5.1); Sodium 139 mmol/L (137-145); Total Bilirubin 0.6 mg/dL (0.2-1.3); Total Protein 7.3 g/dL (6.3-8.2)
[2024-01-05 18:54] LABS: Platelet Count 539 k/uL (150-450)
--- NOTE | 2024-01-05 19:23 | ED ---
General Adult HPI - General Chief complaint: Recheck/Abnormal Lab/Rx Stated complaint: kidney issues Time Seen by Provider: 01/05/24 17:25 Source: patient Mode of arrival: wheelchair Limitations: no limitations - History of Present Illness Initial comments: 83-year-old female presents emergency departments with abnormal labs. Patient is currently being treated for prepatellar cellulitis. She was hospitalized and discharged home on daptomycin. Had routine laboratory studies drawn by her primary care doctor and saw Dr. Ortega today. After she left to this office she received a call stating that she was in kidney failure. Patient reports no change in her urination. Patient has no previous history of kidney disease. No dysuria or hematuria. No other alleviating, precipitating or modifying factors - Related Data Home Medications Medication Instructions Recorded Confirmed HYDROcodone/APAP 10-325MG [[place] 1 tab PO TID PRN 05/19/22 01/06/24 10-325] Losartan Potassium [Cozaar] 100 mg PO DAILY 05/19/22 01/06/24 amLODIPine [Norvasc] 5 mg PO DAILY 08/29/23 01/06/24 Previous Rx's Medication Instructions Recorded DAPTOmycin [Cubicin] 300 mg IVPB Q24HR each 12/30/23 Gabapentin [Neurontin] 200 mg PO BID cap 12/30/23 Allergies Allergy/AdvReac Type Severity Reaction Status Date / Time cephalexin [From Keflex] Allergy Swelling Verified 01/06/24 09:59 nitrofurantoin Allergy Swelling Verified 01/06/24 09:59 [From Macrobid] sulfamethoxazole Allergy Swelling Verified 01/06/24 09:59 [From Bactrim] trimethoprim [From Bactrim] Allergy Swelling Verified 01/06/24 09:59 Review of Systems ROS Statement: Those systems with pertinent positive or pertinent negative responses have been documented in the HPI. ROS Other: All systems not noted in ROS Statement are negative. Past Medical History Past Medical History: Chest Pain / Angina, GERD/Reflux, Hypertension, Pneumonia Additional Past Medical History / Comment(s): left ankle pain, DIVERTICULAR DISEASE,ARTHRITIS, Vertigo History of Any Multi-Drug Resistant Organisms: None Reported Past Surgical History: Appendectomy, Bladder Surgery, Heart Catheterization, Hysterectomy Additional Past Surgical History / Comment(s): BOWEL RESECTION, UMB HERNIA REPAIR, MILLER CATARACTS,COLONOSCOPY Past Anesthesia/Blood Transfusion Reactions: Motion Sickness Past Psychological History: Anxiety Smoking Status: Never smoker Past Alcohol Use History: None Reported Past Drug Use History: None Reported - Past Family History Mother Family Medical History: CVA/TIA, Dementia, Hypertension, Seizure Disorder Additional Family Medical History / Comment(s): AT AGE 83 Father Family Medical History: Diabetes Mellitus, Hypertension Additional Family Medical History / Comment(s): HERNIA General Exam Limitations: no limitations General appearance: alert, in no apparent distress Head exam: Present: atraumatic, normocephalic, normal inspection Eye exam: Present: normal appearance, PERRL, EOMI. Absent: scleral icterus, conjunctival injection, periorbital swelling ENT exam: Present: normal exam, mucous membranes moist Neck exam: Present: normal inspection. Absent: tenderness, meningismus, lymphadenopathy Respiratory exam: Present: normal lung sounds bilaterally. Absent: respiratory distress, wheezes, rales, rhonchi, stridor Cardiovascular Exam: Present: regular rate, normal rhythm, normal heart sounds. Absent: systolic murmur, diastolic murmur, rubs, gallop, clicks GI/Abdominal exam: Present: soft, normal bowel sounds. Absent: distended, tenderness, guarding, rebound, rigid Extremities exam: Present: normal inspection, full ROM, normal capillary refill. Absent: tenderness, pedal edema, joint swelling, calf tenderness Back exam: Present: normal inspection Neurological exam: Present: alert, oriented X3, CN II-XII intact Psychiatric exam: Present: normal affect, normal mood Skin exam: Present: warm, dry, intact, other (Some healing erythema over the left knee). Absent: rash Course Vital Signs 01/05/24 01/05/24 01/05/24 17:19 20:48 23:39 Temperature 99.4 F Pulse Rate 80 70 89 Respiratory 18 18 18 Rate Blood Pressure 182/89 144/82 145/89 O2 Sat by Pulse 95 98 98 Oximetry Medical Decision Making - Medical Decision Making Was pt. sent in by a medical professional or institution (, PA, PULP REFINER OPERATOR, urgent care, hospital, or care home...) When possible be specific @ -Patient sent in from her primary care doctor Did you speak to anyone other than the patient for history (EMS, parent, family, police, friend...)? What history was obtained from this source @ -Spoke with daughter for history Did you review nursing and triage notes (agree or disagree)? Why? @ -I reviewed and agree with nursing and triage notes Were old charts reviewed (outside hosp., previous admission, EMS record, old EKG, old radiological studies, urgent care reports/EKG's, care home records)? Report findings @ -I reviewed patient's discharge summary from recent hospitalization for her prepatellar bursitis Differential Diagnosis (chest pain, altered mental status, abdominal pain women, abdominal pain men, vaginal bleeding, weakness, fever, dyspnea, syncope, headache, dizziness, GI bleed, back pain, seizure, CVA, palpatations, mental health, musculoskeletal)? @ -UTI, retention, kidney stones, nephrotoxic agents EKG interpreted by me (3pts min.). @ -Yes and demonstrates sinus rhythm with rate of 75. SC interval 162. QRS 78. QTc of 380. No acute ST segment elevations or depressions X-rays interpreted by me (1pt min.). @ -None done CT interpreted by me (1pt min.). @ -None done U/S interpreted by me (1pt. min.). @ -Yes and demonstrates no hydronephrosis What testing was considered but not performed or refused? (CT, X-rays, U/S, labs)? Why? @ -None What meds were considered but not given or refused? Why? @ -None Did you discuss the management of the patient with other professionals (professionals i.e. , PA, PULP REFINER OPERATOR, lab, RT, psych nurse, psychosocial rehabilitation counselor, sample prep technician, teacher, division officer weapons department, case supervisor)? Give summary @ -Spoke with Marita for admission Was smoking cessation discussed for >3mins.? @ -No Was critical care preformed (if so, how long)? @ -No Were there social determinants of health that impacted care today? How? (Homelessness, low income, unemployed, alcoholism, drug addiction, transportation, low edu. Level, literacy, decrease access to med. care, alf, rehab)? @ -No Was there de-escalation of care discussed even if they declined (Discuss DNR or withdrawal of care, Hospice)? DNR status @ -No What co-morbidities impacted this encounter? (DM, HTN, Smoking, COPD, CAD, Cancer, CVA, ARF, Chemo, Hep., AIDS, mental health diagnosis, sleep apnea, morbid obesity)? @ -None Was patient admitted / discharged? Hospital course, mention meds given and route, prescriptions, significant lab abnormalities, going to OR and other pertinent info. @ -Upon arrival patient seen and evaluated in room 31. Thorough history and physical exam was performed. IV access was established laboratory studies are conducted. Patient does have acute kidney injury. No history of kidney failure. At this time her nephrotoxic home medications are held. She is given IV fluids. Recommended admission for nephrology and infectious disease consult Undiagnosed new problem with uncertain prognosis? @ -No Drug Therapy requiring intensive monitoring for toxicity (Heparin, Nitro, Insulin, Cardizem)? @ -No Were any procedures done? @ -No Diagnosis/symptom? @ -Acute kidney injury, recent diagnosis of prepatellar bursitis Acute, or Chronic, or Acute on Chronic? @ -Acute Uncomplicated (without systemic symptoms) or Complicated (systemic symptoms)? @ -Complicated Side effects of treatment? @ -No Exacerbation, Progression, or Severe Exacerbation? @ -No Poses a threat to life or bodily function? How? (Chest pain, [place], [place], pneumonia, PE, COPD, DKA, ARF, appy, cholecystitis, CVA, Diverticulitis, Homicidal, Suicidal, threat to staff... and all critical care pts) @ -No - Lab Data Result diagrams: 01/06/24 06:46 01/07/24 04:47 Lab Results 01/05/24 01/05/24 01/05/24 Range/Units 18:00 18:00 18:00 WBC 9.1 (3.8-10.6) k/uL RBC 3.85 (3.80-5.40) m/uL Hgb 11.2 L (11.4-16.0) gm/dL Hct 33.7 L (34.0-46.0) % MCV 87.7 (80.0-100.0) fL MCH 29.1 (25.0-35.0) pg MCHC 33.1 (31.0-37.0) g/dL RDW 13.6 (11.5-15.5) % Plt Count 539 H D (150-450) k/uL MPV 7.0 Neutrophils % 68 % Lymphocytes % 23 % Monocytes % 4 % Eosinophils % 3 % Basophils % 1 % Neutrophils # 6.1 (1.3-7.7) k/uL Lymphocytes # 2.1 (1.0-4.8) k/uL Monocytes # 0.3 (0-1.0) k/uL Eosinophils # 0.3 (0-0.7) k/uL Basophils # 0.1 (0-0.2) k/uL Sodium 139 (137-145) mmol/L Potassium 4.7 (3.5-5.1) mmol/L Chloride 105 (98-107) mmol/L Carbon Dioxide 25 (22-30) mmol/L Anion Gap 9 mmol/L BUN 37 H (7-17) mg/dL Creatinine 2.89 H (0.52-1.04) mg/dL Est GFR (CKD-EPI)AfAm 17 (>60 ml/min/1.73 sqM) Est GFR (CKD-EPI)NonAf 15 (>60 ml/min/1.73 sqM) Glucose 128 H (74-99) mg/dL Calcium 8.8 (8.4-10.2) mg/dL Total Bilirubin 0.6 (0.2-1.3) mg/dL AST 24 (14-36) U/L ALT 14 (4-34) U/L Alkaline Phosphatase 92 (38-126) U/L Total Protein 7.3 (6.3-8.2) g/dL Albumin 3.5 (3.5-5.0) g/dL Urine Color Colorless Urine Appearance Clear (Clear) Urine pH 5.5 (5.0-8.0) Ur Specific [place] 1.012 (1.001-1.035) Urine Protein Negative (Negative) Urine Glucose (UA) Negative (Negative) Urine Ketones Negative (Negative) Urine Blood Negative (Negative) Urine Nitrite Negative (Negative) Urine Bilirubin Negative (Negative) Urine Urobilinogen <2.0 (<2.0) mg/dL Ur Leukocyte Esterase Negative (Negative) Disposition Clinical Impression: Septic prepatellar bursitis of right knee, VALE (acute kidney injury) Disposition: [facility] Condition: Stable Is patient prescribed a controlled substance at d/c from ED?: No Time of Disposition: 20:59 Decision to Admit Reason: Admit from EC Decision Date: 01/05/24 Decision Time: 21:00
--- NOTE | 2024-01-05 19:37 | US ---
EXAMINATION TYPE: US renals and bladder DATE OF EXAM: 01/05/2024 COMPARISON: CT 07/28/22 CLINICAL INDICATION: Female, 83 years old with history of kidney failure; Kidney failure TECHNIQUE: Grayscale and color Doppler imaging of the bilateral kidneys and urinary bladder: FINDINGS: EXAM MEASUREMENTS: Right Kidney: 9.9 x 4.2 x 4.9 cm Left Kidney: 9.9 x 5.7 x 3.8 cm Right Kidney: wnl as best seen Left Kidney: wnl as best seen Bladder: wnl Bilateral Jets seen: not visualized today IMPRESSION: No evidence for acute process. [facility], , 01/05/2024 7:34 PM
[2024-01-05 20:18] LABS: Appearance,Urine Clear (Clear); Bilirubin,Urine Negative (Negative); Blood,Urine Negative (Negative); Color,Urine Colorless; Glucose,Urine (UA) Negative (Negative); Ketones,Urine Negative (Negative); Leukocyte Esterase,Urine Negative (Negative); Nitrite,Urine Negative (Negative); PH, Urine 5.5 (5.0-8.0); Protein,Urine Negative (Negative); Specific Gravity,Urine 1.012 (1.001-1.035); Urobilinogen,Urine <2.0 mg/dL (<2.0)
[2024-01-05] MEDS ORDERED: NALOXONE 0.4 MG/ML 1 ML VIAL IV PRN (21:00)
[2024-01-05] MEDS: SODIUM CHLORIDE 0.9% 1,000 ML IV SCH (21:18)
[2024-01-06] MEDS: HEPARIN SODIUM,PORCINE 5,000 UNIT/ML 1 ML VIAL SQ SCH (01:16)
[2024-01-06] MEDS: hydrALAZINE HCL 25 MG TAB PO STA (01:16)
[2024-01-06 07:05] LABS: Basophils # (A) 0.1 k/uL (0-0.2); Basophils % (A) 1 %; Eosinophils # (A) 0.3 k/uL (0-0.7); Eosinophils % (A) 4 %; HCT 36.6 % (34.0-46.0); HGB 11.9 gm/dL (11.4-16.0); Lymphocytes # (A) 2.2 k/uL (1.0-4.8); Lymphocytes % (A) 28 %; MCH 28.7 pg (25.0-35.0); MCHC 32.4 g/dL (31.0-37.0); MCV 88.4 fL (80.0-100.0); Mean Platelet Volume 6.8; Monocytes # (A) 0.3 k/uL (0-1.0); Monocytes % (A) 4 %; Neutrophils # (A) 4.6 k/uL (1.3-7.7); Neutrophils % (A) 61 %; Platelet Count 512 k/uL (150-450); RBC 4.14 m/uL (3.80-5.40); RDW 13.6 % (11.5-15.5); WBC 7.7 k/uL (3.8-10.6)
[2024-01-06 07:21] LABS: African American GFR (CKD) 20 (>60 ml/min/1.73 sqM); Anion Gap 10 mmol/L; Blood Urea Nitrogen 34 mg/dL (7-17); Carbon Dioxide 21 mmol/L (22-30); Chloride 110 mmol/L (98-107); Glucose 87 mg/dL (74-99); Non-African American GFR(CKD) 17 (>60 ml/min/1.73 sqM); Potassium 4.7 mmol/L (3.5-5.1); Sodium 141 mmol/L (137-145)
[2024-01-06] MEDS: FAMOTIDINE 20 MG TAB PO SCH (08:31)
[2024-01-06] MEDS: GABAPENTIN 100 MG CAP PO SCH (08:31)
[2024-01-06] MEDS: amLODIPine 5 MG TAB PO SCH ×2 (08:31→20:03)
--- NOTE | 2024-01-06 12:14 | P.NPCON ---
History of Present Illness - Reason for Consult acute renal failure - History of Present Illness Reason for consultation: Acute kidney injury History of present illness: Patient is 83-year-old female seen in renal consultation for acute kidney injury. Patient's baseline creatinine is near 1 and was elevated at 3.2 dated January 03, 2024. Today it is 2.52. Patient states she was recently being treated for left patella cellulitis and was receiving IV antibiotics at home. Patient states she had blood work done and was advised to go to the hospital due to abnormal kidney function. Oral intake has been fair. She denies any vomiting or diarrhea. She denies use of nonsteroidals. Denies history of diabetes or coronary artery disease. No evidence of urinary retention. Denies gross hematuria or dysuria. Hemodynamically stable. Receiving IV fluids. No hydronephrosis noted on kidney ultrasound. She was on losartan outpatient which is currently held. Vital signs are stable. General: No acute distress. HEENT: Head exam is unremarkable. LUNGS: No audible rhonchi or wheezes. HEART: Rate and Rhythm are regular. ABDOMEN: Nontender. EXTREMITITES: No edema right lower extremity. Trace edema left lower extremity. Past Medical History Past Medical History: Chest Pain / Angina, GERD/Reflux, Hypertension, Pneumonia Additional Past Medical History / Comment(s): left ankle pain, DIVERTICULAR DISEASE,ARTHRITIS, Vertigo History of Any Multi-Drug Resistant Organisms: None Reported Past Surgical History: Appendectomy, Bladder Surgery, Heart Catheterization, Hysterectomy Additional Past Surgical History / Comment(s): BOWEL RESECTION, UMB HERNIA REPAIR, MILLER CATARACTS,COLONOSCOPY Past Anesthesia/Blood Transfusion Reactions: Motion Sickness Past Psychological History: Anxiety Smoking Status: Former smoker Past Alcohol Use History: None Reported Additional Past Alcohol Use History / Comment(s): STARTED SMOKED 1969, QUIT 1979 SMOKED 1 PACK PER WEEK Past Drug Use History: None Reported - Past Family History Mother Family Medical History: CVA/TIA, Dementia, Hypertension, Seizure Disorder Additional Family Medical History / Comment(s): AT AGE 83 Father Family Medical History: Diabetes Mellitus, Hypertension Additional Family Medical History / Comment(s): HERNIA Medications and Allergies Home Medications Medication Instructions Recorded Confirmed Type HYDROcodone/APAP 10-325MG [[place] 1 tab PO TID PRN 05/19/22 01/06/24 History 10-325] Losartan Potassium [Cozaar] 100 mg PO DAILY 05/19/22 01/06/24 History amLODIPine [Norvasc] 5 mg PO DAILY 08/29/23 01/06/24 History DAPTOmycin [Cubicin] 300 mg IVPB Q24HR each 12/30/23 01/06/24 Rx Gabapentin [Neurontin] 200 mg PO BID cap 12/30/23 01/06/24 Rx Allergies Allergy/AdvReac Type Severity Reaction Status Date / Time cephalexin [From Keflex] Allergy Swelling Verified 01/06/24 09:59 nitrofurantoin Allergy Swelling Verified 01/06/24 09:59 [From Macrobid] sulfamethoxazole Allergy Swelling Verified 01/06/24 09:59 [From Bactrim] trimethoprim [From Bactrim] Allergy Swelling Verified 01/06/24 09:59 Physical Exam Vitals: Vital Signs Temp Pulse Pulse Resp BP BP BP 01/06/24 06:50 98.8 F 77 18 146/98 01/06/24 02:28 98.1 F 71 17 147/78 01/06/24 00:22 98.2 F 82 18 189/97 01/05/24 23:39 89 18 145/89 01/05/24 20:48 70 18 144/82 01/05/24 17:19 99.4 F 80 18 182/89 Pulse Ox 01/06/24 06:50 98 01/06/24 02:28 96 01/06/24 00:22 97 01/05/24 23:39 98 01/05/24 20:48 98 01/05/24 17:19 95 Intake and Output 01/05/24 01/06/24 01/06/24 22:59 06:59 14:59 Intake Total 100 Output Total 94 Balance -94 100 Intake: Oral 100 Output: Post Void Residual 94 Other: Voiding Method Toilet # Voids 2 Weight 87.09 kg Results - Lab Results Most recent lab results Calcium 9.0 mg/dL (8.4-10.2) 01/06/24 06:46 01/06/24 06:46 01/06/24 06:46 Assessment and Plan Plan: Assessment: 1. Acute kidney injury secondary to ATN secondary to hypovolemia further worsen with the use of losartan. Creatinine 3.2 dated January 03, 2024 and is 2.52 today. Baseline creatinine near 1. No hydronephrosis noted on kidney ultrasound. UA benign. 2. Left patella cellulitis. Was receiving IV daptomycin outpatient. 3. Benign hypertension. Stable. Plan: Maintain IV fluids. Continue to hold losartan. Increase amlodipine frequency to 5 mg twice daily. Hold for systolic blood pressure less than 120. Avoid nephrotoxins. Thank you for the consultation. I will continue to follow the patient with you during her hospital stay.
[2024-01-06] MEDS: HYDROcodone/APAP 10-325MG 1 EACH TAB PO PRN (15:35)
--- NOTE | 2024-01-06 23:13 | P.HPIM ---
History of Present Illness H&P Date: 01/06/24 Chief Complaint: Abnormal lab Patient is a 83-year-old female with past medical history of hypertension, GERD, recent left knee septic prepatellar bursitis currently on IV daptomycin at home presents to ER with complaints of abnormal labs. Patient had lab test done by her primary care physician and was seen by Dr. Ortega. Patient was advised to go to ER. Otherwise patient denied any complaints of fever or chills. Denied any dysuria or hematuria. No nausea vomiting abdominal pain or diarrhea. On admission BUN 37 creatinine 2.89 and blood sugar 128. Urinalysis is negative for infection. Renal ultrasound showed no acute process. EKG showed normal sinus rhythm. Other laboratory data reviewed. Review of Systems Constitutional: Patient denies any fever or chills . No generalized weakness or weight loss. Abdomen: Patient denied nausea vomiting and diarrhea and abdominal pain. Cardiovascular: Patient denies any chest pain or short of breath no palpitations. Respiratory: patient denied any cough or sputum production. No shortness of breath Neurologic: Patient denied any numbness or tingling. no headache. Musculoskeletal: Patient denies any complaints of joint swelling or deformity. Skin: Negative Psychiatric: Negative Endocrine: No heat or cold intolerance. No recent weight gain. Genitourinary: No dysuria or hematuria. All other 14 point ROS negative except the above Past Medical History Past Medical History: Chest Pain / Angina, GERD/Reflux, Hypertension, Pneumonia Additional Past Medical History / Comment(s): left ankle pain, DIVERTICULAR DISEASE,ARTHRITIS, Vertigo History of Any Multi-Drug Resistant Organisms: None Reported Past Surgical History: Appendectomy, Bladder Surgery, Heart Catheterization, Hysterectomy Additional Past Surgical History / Comment(s): BOWEL RESECTION, UMB HERNIA REPAIR, MILLER CATARACTS,COLONOSCOPY Past Anesthesia/Blood Transfusion Reactions: Motion Sickness Past Psychological History: Anxiety Smoking Status: Former smoker Past Alcohol Use History: None Reported Additional Past Alcohol Use History / Comment(s): STARTED SMOKED 1969, QUIT 1979 SMOKED 1 PACK PER WEEK Past Drug Use History: None Reported - Past Family History Mother Family Medical History: CVA/TIA, Dementia, Hypertension, Seizure Disorder Additional Family Medical History / Comment(s): AT AGE 83 Father Family Medical History: Diabetes Mellitus, Hypertension Additional Family Medical History / Comment(s): HERNIA Medications and Allergies Home Medications Medication Instructions Recorded Confirmed Type HYDROcodone/APAP 10-325MG [[place] 1 tab PO TID PRN 05/19/22 01/06/24 History 10-325] Losartan Potassium [Cozaar] 100 mg PO DAILY 05/19/22 01/06/24 History amLODIPine [Norvasc] 5 mg PO DAILY 08/29/23 01/06/24 History DAPTOmycin [Cubicin] 300 mg IVPB Q24HR each 12/30/23 01/06/24 Rx Gabapentin [Neurontin] 200 mg PO BID cap 12/30/23 01/06/24 Rx Allergies Allergy/AdvReac Type Severity Reaction Status Date / Time cephalexin [From Keflex] Allergy Swelling Verified 01/06/24 09:59 nitrofurantoin Allergy Swelling Verified 01/06/24 09:59 [From Macrobid] sulfamethoxazole Allergy Swelling Verified 01/06/24 09:59 [From Bactrim] trimethoprim [From Bactrim] Allergy Swelling Verified 01/06/24 09:59 Physical Exam Vitals: Vital Signs Temp Pulse Pulse Resp BP BP BP 01/06/24 06:50 98.8 F 77 18 146/98 01/06/24 02:28 98.1 F 71 17 147/78 01/06/24 00:22 98.2 F 82 18 189/97 01/05/24 23:39 89 18 145/89 01/05/24 20:48 70 18 144/82 01/05/24 17:19 99.4 F 80 18 182/89 Pulse Ox 01/06/24 06:50 98 01/06/24 02:28 96 01/06/24 00:22 97 01/05/24 23:39 98 01/05/24 20:48 98 01/05/24 17:19 95 Intake and Output 01/05/24 01/06/24 01/06/24 22:59 06:59 14:59 Intake Total 100 Output Total 94 Balance -94 100 Intake: Oral 100 Output: Post Void Residual 94 Other: Voiding Method Toilet # Voids 2 Weight 87.09 kg PHYSICAL EXAMINATION: Patient is lying in the bed comfortably, no acute distress, awake alert and oriented.. HEENT: Normocephalic. Neck is supple. Pupils reactive. Nostrils clear. Oral cavity is moist. Neck reveals no JVD, carotid bruits, or thyromegaly. CHEST EXAMINATION: Trachea is central. Symmetrical expansion. Lung saldaña clear to auscultation and percussion. CARDIAC: Normal S1, S2 with no gallops. No murmurs ABDOMEN: Soft. Bowel sounds normal. No organomegaly. No abdominal bruits. Extremities: reveal no edema. Left suprapatellar knee swelling and redness noted. Mild tenderness. No clubbing or cyanosis Neurologically awake, alert, oriented x3 with well-coordinated movements. No focal deficits noted Skin: No rash or skin lesions. Psychiatric: Coperative. Nonsuicidal Musculoskeletal: No joint swelling or deformity. Normal range of motion. Results CBC & Chem 7: 01/06/24 06:46 01/06/24 06:46 Labs: Abnormal Lab Results - Last 24 Hours (Table) 01/05/24 01/05/24 01/06/24 Range/Units 18:00 18:00 06:46 Hgb 11.2 L (11.4-16.0) gm/dL Hct 33.7 L (34.0-46.0) % Plt Count 539 H D 512 H (150-450) k/uL Chloride (98-107) mmol/L Carbon Dioxide (22-30) mmol/L BUN 37 H (7-17) mg/dL Creatinine 2.89 H (0.52-1.04) mg/dL Glucose 128 H (74-99) mg/dL 01/06/24 Range/Units 06:46 Hgb (11.4-16.0) gm/dL Hct (34.0-46.0) % Plt Count (150-450) k/uL Chloride 110 H (98-107) mmol/L Carbon Dioxide 21 L (22-30) mmol/L BUN 34 H (7-17) mg/dL Creatinine 2.52 H (0.52-1.04) mg/dL Glucose (74-99) mg/dL Thrombosis Risk Factor Assmnt - DVT/VTE Prophylaxis DVT/VTE Prophylaxis: Pharmacologic Prophylaxis ordered - Choose All That Apply Each Factor Represents 1 point: Obesity (BMI >25) Each Risk Factor Represents 3 Points: Age 75 years or older Thrombosis Risk Factor Assessment Total Risk Factor Score: 4 Thrombosis Risk Factor Assessment Level: Moderate Risk Assessment and Plan Assessment: Acute kidney injury likely due to ATN and also use of losartan. Creatinine 2.8 on admission. Baseline creatinine level around 1. Left septic prepatellar bursitis. Currently on IV antibiotic therapy with daptomycin at home. Hypertension uncontrolled. GERD History of diverticular disease History of bladder surgery Anxiety Normocytic anemia Thrombocytosis Prior history of smoking DVT prophylaxis with heparin subcu Plan: Patient will be continued on IV hydration with normal saline. Started back on daptomycin as per ID recommendations. Follow-up renal function. Nephrology and ID is on board. Titrate blood pressure medications. Follow-up CBC and BMP. Time with Patient: Greater than 30
--- NOTE | 2024-01-06 23:41 | P.CONS ---
History of Present Illness - Reason for Consult Consult date: 01/06/24 Cellulitis, VALE Requesting physician: Ifeoma Mccarty - Chief Complaint Abnormal lab x 1 day - History of Present Illness Patient is a 83-year-old female with a past medical history significant for reflux hypertension pneumonia recently admitted to this facility with the left knee septic prepatellar bursitis per the patient was seen by orthopedics recommended no surgical I&D patient was on IV vancomycin did have improvement however she was discharged on daptomycin patient did have a normal creatinine on discharge however on a follow-up blood work she was noticed to have the creatinine jumped up to 3.214 the patient was advised to go to the hospital patient has been on lisinopril and also taking Aleve for the pain patient denies having any fever or any chills denies any headache or URI symptoms no chest pain shortness of breath or cough no nausea vomiting no abdominal pain no diarrhea the patient left knee pain and swelling is slight decrease currently with open wound or any drainage patient has been afebrile the hospital infectious was consulted for further management of antibiotic therapy Review of Systems Positive point and negatives has been mentioned in the HPI, complete review of systems was performed and all other systems are negative Past Medical History Past Medical History: Chest Pain / Angina, GERD/Reflux, Hypertension, Pneumonia Additional Past Medical History / Comment(s): left ankle pain, DIVERTICULAR DISEASE,ARTHRITIS, Vertigo History of Any Multi-Drug Resistant Organisms: None Reported Past Surgical History: Appendectomy, Bladder Surgery, Heart Catheterization, Hysterectomy Additional Past Surgical History / Comment(s): BOWEL RESECTION, UMB HERNIA REPA IR, MILLER CATARACTS,COLONOSCOPY Past Anesthesia/Blood Transfusion Reactions: Motion Sickness Past Psychological History: Anxiety Smoking Status: Former smoker Past Alcohol Use History: None Reported Additional Past Alcohol Use History / Comment(s): STARTED SMOKED 1969, QUIT 1979 SMOKED 1 PACK PER WEEK Past Drug Use History: None Reported - Past Family History Mother Family Medical History: CVA/TIA, Dementia, Hypertension, Seizure Disorder Additional Family Medical History / Comment(s): AT AGE 83 Father Family Medical History: Diabetes Mellitus, Hypertension Additional Family Medical History / Comment(s): HERNIA Medications and Allergies Home Medications Medication Instructions Recorded Confirmed Type HYDROcodone/APAP 10-325MG [[place] 1 tab PO TID PRN 05/19/22 01/06/24 History 10-325] Losartan Potassium [Cozaar] 100 mg PO DAILY 05/19/22 01/06/24 History amLODIPine [Norvasc] 5 mg PO DAILY 08/29/23 01/06/24 History DAPTOmycin [Cubicin] 300 mg IVPB Q24HR each 12/30/23 01/06/24 Rx Gabapentin [Neurontin] 200 mg PO BID cap 12/30/23 01/06/24 Rx Allergies Allergy/AdvReac Type Severity Reaction Status Date / Time cephalexin [From Keflex] Allergy Swelling Verified 01/06/24 09:59 nitrofurantoin Allergy Swelling Verified 01/06/24 09:59 [From Macrobid] sulfamethoxazole Allergy Swelling Verified 01/06/24 09:59 [From Bactrim] trimethoprim [From Bactrim] Allergy Swelling Verified 01/06/24 09:59 Physical Exam Vitals: Vital Signs Temp Pulse Pulse Resp BP BP BP 01/06/24 06:50 98.8 F 77 18 146/98 01/06/24 02:28 98.1 F 71 17 147/78 01/06/24 00:22 98.2 F 82 18 189/97 01/05/24 23:39 89 18 145/89 01/05/24 20:48 70 18 144/82 01/05/24 17:19 99.4 F 80 18 182/89 Pulse Ox 01/06/24 06:50 98 01/06/24 02:28 96 01/06/24 00:22 97 01/05/24 23:39 98 01/05/24 20:48 98 01/05/24 17:19 95 Intake and Output 01/05/24 01/06/24 01/06/24 22:59 06:59 14:59 Intake Total 100 Output Total 94 Balance -94 100 Intake: Oral 100 Output: Post Void Residual 94 Other: # Voids 2 Weight 87.09 kg GENERAL DESCRIPTION: Elderly female lying in bed, no distress. No tachypnea or accessory muscle of respiration use. HEENT: Shows Pallor , no scleral icterus. Oral mucous membrane is dry. No p haryngeal erythema or thrush NECK: Trachea central, no thyromegaly. LUNGS: Unlabored breathing. Clear to auscultation anteriorly. No wheeze or crackle. HEART: S1, S2, regular rate and rhythm. No loud murmur ABDOMEN: Soft, no tenderness , guarding or rigidity, no organomegaly EXTREMITIES: Left knee area swelling redness has decreased no open wound no drainage SKIN: No rash, no masses palpable. NEUROLOGICAL: The patient is awake, alert, oriented x3, mood and affect normal. Results CBC & Chem 7: 01/06/24 06:46 01/08/24 05:43 Labs: Abnormal Lab Results - Last 24 Hours (Table) 01/05/24 01/05/24 01/06/24 Range/Units 18:00 18:00 06:46 Hgb 11.2 L (11.4-16.0) gm/dL Hct 33.7 L (34.0-46.0) % Plt Count 539 H D 512 H (150-450) k/uL Chloride (98-107) mmol/L Carbon Dioxide (22-30) mmol/L BUN 37 H (7-17) mg/dL Creatinine 2.89 H (0.52-1.04) mg/dL Glucose 128 H (74-99) mg/dL 01/06/24 Range/Units 06:46 Hgb (11.4-16.0) gm/dL Hct (34.0-46.0) % Plt Count (150-450) k/uL Chloride 110 H (98-107) mmol/L Carbon Dioxide 21 L (22-30) mmol/L BUN 34 H (7-17) mg/dL Creatinine 2.52 H (0.52-1.04) mg/dL Glucose (74-99) mg/dL Assessment and Plan (1) Septic prepatellar bursitis of right knee Current Visit: Yes Status: Acute Code(s): M71.161 - OTHER INFECTIVE BURSITIS, RIGHT KNEE SNOMED Code(s): 7150207513386477 (2) Allergy to cephalosporin Current Visit: No Status: Acute Code(s): Z88.1 - ALLERGY STATUS TO OTHER ANTIBIOTIC AGENTS SNOMED Code(s): 632895101 (3) Cellulitis of left knee Current Visit: No Status: Acute Code(s): L03.116 - CELLULITIS OF LEFT LOWER LIMB SNOMED Code(s): 02130535290663745 Plan: 1patient with a left knee septic prepatellar bursitis for the patient has been on daptomycin in the outpatient setting now being admitted to the hospital with acute kidney injury at the patient has significant jump in her creatinine up to 3.21 questionable related to her pain medication Aleve versus lisinopril as no nephrotoxicity has been associated with the daptomycin 2-await further recommendation from nephrology 3-I will restart her daptomycin at 4 mg/kg q. 48-hour We will follow on clinical condition and cultures to further adjust medication if needed Thank you for this consultation we will follow the patient along with you Dictation was produced using [employer] dictation software. please excuse any grammatical, word or spelling errors. Time with Patient: Greater than 30
[2024-01-07] MEDS ORDERED: SENNOSIDES 8.6 MG TAB PO PRN (08:47)
[2024-01-07 09:17] LABS: % Iron Saturation 26.92 (12.00-45.00)
[2024-01-07 09:34] LABS: Calcium 8.9 mg/dL (8.7-10.3); Carbon Dioxide 20.8 mmol/L (21.6-31.8); Chloride 107 mmol/L (96-109); Glucose 79 mg/dL (70-110); Magnesium 1.8 mg/dL (1.5-2.4); Potassium 4.7 mmol/L (3.5-5.5); Sodium 140 mmol/L (135-145)
--- NOTE | 2024-01-07 11:41 | P.PN ---
Subjective Patient is seen in follow-up for acute kidney injury. Creatinine stable at 2.5. Hemodynamically stable. Receiving IV fluids. Oral intake fair. Vital signs are stable. General: No acute distress. HEENT: Head exam is unremarkable. LUNGS: No audible rhonchi or wheezes. HEART: Rate and Rhythm are regular. ABDOMEN: Nontender. EXTREMITITES: No edema. Objective - Vital Signs Vital signs: Vital Signs Temp 98.1 F 01/07/24 06:45 Pulse 69 01/07/24 06:45 Resp 16 01/07/24 06:45 BP 142/84 01/07/24 06:45 Pulse Ox 96 01/07/24 06:45 FiO2 Intake & Output 01/06/24 01/07/24 01/07/24 18:59 06:59 18:59 Intake Total 866 118 Balance 866 118 Intake: Oral 866 118 Other: Voiding Method Toilet Toilet Toilet # Voids 1 3 # Bowel Movements 1 - Labs CBC & Chem 7: 01/06/24 06:46 01/07/24 04:47 Labs: Abnormal Lab Results - Last 24 Hours (Table) 01/07/24 Range/Units 04:47 Carbon Dioxide 20.8 L (21.6-31.8) mmol/L Anion Gap 12.20 H (4.00-12.00) mmol/L BUN 28.0 H (9.0-27.0) mg/dL Creatinine 2.5 H (0.6-1.5) mg/dL Est GFR (CKD-EPI) 19 L (>=60) BUN/Creatinine Ratio 11.20 L (12.00-20.00) Ratio Assessment and Plan Plan: Assessment: 1. Acute kidney injury secondary to ATN secondary to hypovolemia further worsened with the use of losartan. Creatinine 3.2 dated January 03, 2024 and is stable at 2.5 today. Baseline creatinine near 1. No hydronephrosis noted on kidney ultrasound. UA benign. 2. Left patella cellulitis. On IV antibiotics. 3. Benign hypertension. Stable. 4. Metabolic acidosis secondary to acute kidney injury on IV fluids. Plan: Maintain IV fluids. Encouraged oral intake. Continue to hold losartan. Hold amlodipine for systolic blood pressure less than 120. Avoid nephrotoxins. Repeat bladder scan to make sure no urinary retention. Add oral bicarb.
[2024-01-07] MEDS: SODIUM BICARBONATE TAB 650 MG TAB PO SCH (14:26)
[2024-01-07] MEDS: ACETAMINOPHEN TAB 325 MG TAB PO PRN (14:27)
--- NOTE | 2024-01-08 01:06 | P.PN ---
Subjective Progress Note Date: 01/07/24 Patient is a 83-year-old female with past medical history of hypertension, GERD, recent left knee septic prepatellar bursitis currently on IV daptomycin at home presents to ER with complaints of abnormal labs. Patient had lab test done by her primary care physician and was seen by Dr. Ortega. Patient was advised to go to ER. Otherwise patient denied any complaints of fever or chills. Denied any dysuria or hematuria. No nausea vomiting abdominal pain or diarrhea. On admission BUN 37 creatinine 2.89 and blood sugar 128. Urinalysis is negative for infection. Renal ultrasound showed no acute process. EKG showed normal sinus rhythm. Other laboratory data reviewed. 01/07/2024 Patient is seen and evaluated in follow-up this morning with nephrology and infectious disease following. Patient is continued on IV antibiotics for left knee prepatellar bursitis. Patient reports her swelling of the left knee has significantly improved and reports to feeling better asking if she can go home. Per ID recommendations patient will require continued IV antibiotic therapy at this time due to significant swelling and discoloration of the skin. Will adjust pain medications accordingly as patient is reporting continued left lower extremity pain. Review of systems: Constitutional: No reports of fatigue, fever, or chills Cardiovascular: No reports of chest pain or palpitations Respiratory: No reports of shortness of breath or cough GI: No reports of nausea, vomiting, or diarrhea : No reports of dysuria or retention Neurovascular: No reports of weakness or numbness, reports some mild left knee pain but has improved since yesterday All medications have been reviewed Physical exam: Patient is lying in the bed comfortably, no acute distress, awake alert and oriented.. Elderly appearing, obese HEENT: Normocephalic. Neck is supple. Pupils reactive. Nostrils clear. Oral cavity is moist. Neck reveals no JVD, carotid bruits, or thyromegaly. CHEST EXAMINATION: Trachea is central. Symmetrical expansion. Lung saldaña clear to auscultation and percussion. CARDIAC: Normal S1, S2 with no gallops. No murmurs ABDOMEN: Soft. Bowel sounds normal. No organomegaly. No abdominal bruits. Extremities: reveal no edema. Left suprapatellar knee swelling and redness noted, improving from yesterday. Mild tenderness. No clubbing or cyanosis Neurologically awake, alert, oriented x3 with well-coordinated movements. No focal deficits noted Skin: No rash or skin lesions. Psychiatric: Cooperative. Non-suicidal Musculoskeletal: No joint swelling or deformity. Normal range of motion. Assessment: Acute kidney injury likely due to ATN and also use of losartan. Creatinine 2.8 on admission. Baseline creatinine level around 1. Left septic prepatellar bursitis. Currently on IV antibiotic therapy with daptomycin at home. Hypertension uncontrolled. GERD History of diverticular disease History of bladder surgery Anxiety Normocytic anemia Thrombocytosis Prior history of smoking Obesity with a BMI of 37.5 DVT prophylaxis with heparin subcu GI prophylaxis Full code Plan: Patient will be continued on IV hydration with normal saline. Continues on daptomycin as per ID recommendations. Follow-up renal function. Trending down and improving. Nephrology and ID is on board. Titrate blood pressure medications. Continue holding losartan follow-up labs in the AM. Encouraged to increase activity as tolerated. Will follow-up with infectious disease regarding discharge planning. Possible discharge within the next 24 to 48 hours. The impression and plan of care has been dictated by Dorcas Zheng, Nurse Practitioner as directed. Dr. Eddy MD I have performed a history and examination and MDM of this patient, discussed the same with the dictator, and agree with the dictator's assessment and plan as written ,documented as a scribe. Based on total visit time, I have performed more than 50% of the visit. Objective - Vital Signs Vital signs: Vital Signs Temp 98.1 F 01/07/24 06:45 Pulse 69 01/07/24 06:45 Resp 16 01/07/24 06:45 BP 142/84 01/07/24 06:45 Pulse Ox 96 01/07/24 06:45 FiO2 Intake & Output 01/06/24 01/07/24 01/07/24 18:59 06:59 18:59 Intake Total 866 118 Balance 866 118 Intake: Oral 866 118 Other: Voiding Method Toilet Toilet # Voids 1 3 # Bowel Movements 1 - Labs CBC & Chem 7: 01/06/24 06:46 01/07/24 04:47 Labs: Abnormal Lab Results - Last 24 Hours (Table) 01/07/24 Range/Units 04:47 Carbon Dioxide 20.8 L (21.6-31.8) mmol/L Anion Gap 12.20 H (4.00-12.00) mmol/L BUN 28.0 H (9.0-27.0) mg/dL Creatinine 2.5 H (0.6-1.5) mg/dL Est GFR (CKD-EPI) 19 L (>=60) BUN/Creatinine Ratio 11.20 L (12.00-20.00) Ratio
[2024-01-08 09:34] LABS: Blood Urea Nitrogen 23.8 mg/dL (9.0-27.0); Calcium 8.8 mg/dL (8.7-10.3); Carbon Dioxide 21.9 mmol/L (21.6-31.8); Chloride 106 mmol/L (96-109); Glucose 79 mg/dL (70-110); Magnesium 1.7 mg/dL (1.5-2.4); Potassium 4.4 mmol/L (3.5-5.5); Sodium 140 mmol/L (135-145)
[2024-01-08] MEDS ORDERED: hydrALAZINE HCL 20 MG/ML 1 ML VIAL IVP PRN (12:08)
--- NOTE | 2024-01-08 12:09 | P.PN ---
Subjective Patient is seen in follow-up for acute kidney injury. Renal function better. Creatinine 2.0. Hemodynamically stable. Receiving IV fluids. Oral intake fair. Admits to good urine output. Vital signs are stable. General: No acute distress. HEENT: Head exam is unremarkable. LUNGS: No audible rhonchi or wheezes. HEART: Rate and Rhythm are regular. ABDOMEN: Nontender. EXTREMITITES: No edema. Objective - Vital Signs Vital signs: Vital Signs Temp 98.0 F 01/08/24 07:00 Pulse 63 01/08/24 08:00 Resp 16 01/08/24 08:00 BP 149/77 01/08/24 07:00 Pulse Ox 97 01/08/24 07:00 FiO2 Intake & Output 01/07/24 01/08/24 01/08/24 18:59 06:59 18:59 Intake Total 590 118 Balance 590 118 Intake: Oral 590 118 Other: Voiding Method Toilet Toilet # Voids 3 1 - Labs CBC & Chem 7: 01/06/24 06:46 01/08/24 05:43 Labs: Abnormal Lab Results - Last 24 Hours (Table) 01/08/24 Range/Units 05:43 Anion Gap 12.10 H (4.00-12.00) mmol/L Creatinine 2.0 H (0.6-1.5) mg/dL Est GFR (CKD-EPI) 25 L (>=60) BUN/Creatinine Ratio 11.90 L (12.00-20.00) Ratio Assessment and Plan Plan: Assessment: 1. Acute kidney injury secondary to ATN secondary to hypovolemia further worsened with the use of losartan. Creatinine 3.2 dated January 03, 2024 and improved to 2.0 today. Baseline creatinine near 1. No hydronephrosis noted on kidney ultrasound. UA benign. 2. Left patella cellulitis. On IV antibiotics. 3. Benign hypertension. Stable. 4. Metabolic acidosis secondary to acute kidney injury on IV fluids. On oral bicarb. Better. Plan: Maintain IV fluids. Encouraged oral intake. Continue to hold losartan. Add as needed hydralazine. Avoid nephrotoxins.
--- NOTE | 2024-01-08 14:06 | P.PN ---
Subjective Progress Note Date: 01/07/24 Principal diagnosis: Reason for follow-up is left knee septic bursitis Patient is a 83-year-old female with a past medical history significant for reflux hypertension pneumonia recently admitted to this facility with the left knee septic prepatellar bursitis treated with vancomycin did have a discharge creatinine of 1.08 and was discharged on daptomycin with subsequent follow-up blood work in the outpatient setting shows a creatinine of 3.214 the patient has been admitted to the hospital On today's evaluation that is 01/07/2024,the patient remains to be afebrile, patient is on room air not requiring supplemental oxygen and denies any shortness of breath no chest pain or cough.Patient denies having any nausea or vomiting, no abdominal pain and no diarrhea has been reported patient pain to the left knee has decreased in intensity no new symptoms. Patient did have a creatinine 2.5 no CBC was done today Objective - Vital Signs Vital signs: Vital Signs Temp 98.1 F 01/07/24 06:45 Pulse 69 01/07/24 06:45 Resp 16 01/07/24 06:45 BP 142/84 01/07/24 06:45 Pulse Ox 96 01/07/24 06:45 FiO2 Intake & Output 01/06/24 01/07/24 01/07/24 18:59 06:59 18:59 Intake Total 866 118 Balance 866 118 Intake: Oral 866 118 Other: Voiding Method Toilet Toilet Toilet # Voids 1 3 # Bowel Movements 1 - Exam GENERAL DESCRIPTION: An elderly female lying in bed in no distress RESPIRATORY SYSTEM: Unlabored breathing , decreased breath sounds at bases HEART: S1 S2 regular rate and rhythm , ABDOMEN: Soft , no tenderness EXTREMITIES: Left knee swelling redness has decreased - Labs CBC & Chem 7: 01/06/24 06:46 01/08/24 05:43 Labs: Abnormal Lab Results - Last 24 Hours (Table) 01/07/24 Range/Units 04:47 Carbon Dioxide 20.8 L (21.6-31.8) mmol/L Anion Gap 12.20 H (4.00-12.00) mmol/L BUN 28.0 H (9.0-27.0) mg/dL Creatinine 2.5 H (0.6-1.5) mg/dL Est GFR (CKD-EPI) 19 L (>=60) BUN/Creatinine Ratio 11.20 L (12.00-20.00) Ratio Assessment and Plan (1) Septic prepatellar bursitis of right knee Current Visit: Yes Status: Acute Code(s): M71.161 - OTHER INFECTIVE BURSITIS, RIGHT KNEE SNOMED Code(s): 5970964756992722 (2) Allergy to cephalosporin Current Visit: No Status: Acute Code(s): Z88.1 - ALLERGY STATUS TO OTHER ANTIBIOTIC AGENTS SNOMED Code(s): 052675585 (3) Cellulitis of left knee Current Visit: No Status: Acute Code(s): L03.116 - CELLULITIS OF LEFT LOWER LIMB SNOMED Code(s): 10576401881048482 Plan: 1patient with a left knee septic prepatellar bursitis for the patient has been on daptomycin in the outpatient setting now being admitted to the hospital with acute kidney injury at the patient has significant jump in her creatinine up to 3.21 questionable related to her Aleve plus lisinopril as no nephrotoxicity has been associated with the daptomycin 2-patient to continue with daptomycin at 4 mg/kg q. 48-hour while inpatient Dictation was produced using [employer] dictation software. please excuse any grammatical, word or spelling errors.
--- NOTE | 2024-01-08 14:06 | P.PN ---
Subjective Progress Note Date: 01/08/24 Principal diagnosis: Reason for follow-up is left knee septic bursitis Patient is a 83-year-old female with a past medical history significant for reflux hypertension pneumonia recently admitted to this facility with the left knee septic prepatellar bursitis treated with vancomycin did have a discharge creatinine of 1.08 and was discharged on daptomycin with subsequent follow-up blood work in the outpatient setting shows a creatinine of 3.214 the patient has been admitted to the hospital On today's evaluation that is 01/08/2024, the patient continues to be afebrile, the patient is on room air and breathing comfortably, the Pt denies having any chest pain or cough, the patient denies having any abdominal pain no vomiting or any diarrhea patient mention pain and swelling to the left knee has decreased in intensity. Patient creatinine is down to 2.0 no CBC was done today Objective - Vital Signs Vital signs: Vital Signs Temp 98.0 F 01/08/24 07:00 Pulse 63 01/08/24 08:00 Resp 16 01/08/24 08:00 BP 149/77 01/08/24 07:00 Pulse Ox 97 01/08/24 07:00 FiO2 Intake & Output 01/07/24 01/08/24 01/08/24 18:59 06:59 18:59 Intake Total 590 118 Balance 590 118 Intake: Oral 590 118 Other: Voiding Method Toilet Toilet # Voids 3 1 - Exam GENERAL DESCRIPTION: An elderly female lying in bed in no distress RESPIRATORY SYSTEM: Unlabored breathing , decreased breath sounds at bases HEART: S1 S2 regular rate and rhythm , ABDOMEN: Soft , no tenderness EXTREMITIES: Left knee swelling redness has decreased - Labs CBC & Chem 7: 01/06/24 06:46 01/08/24 05:43 Labs: Abnormal Lab Results - Last 24 Hours (Table) 01/08/24 Range/Units 05:43 Anion Gap 12.10 H (4.00-12.00) mmol/L Creatinine 2.0 H (0.6-1.5) mg/dL Est GFR (CKD-EPI) 25 L (>=60) BUN/Creatinine Ratio 11.90 L (12.00-20.00) Ratio Assessment and Plan (1) Septic prepatellar bursitis of right knee Current Visit: Yes Status: Acute Code(s): M71.161 - OTHER INFECTIVE BURSITIS, RIGHT KNEE SNOMED Code(s): 4348579927803339 (2) Allergy to cephalosporin Current Visit: No Status: Acute Code(s): Z88.1 - ALLERGY STATUS TO OTHER ANTIBIOTIC AGENTS SNOMED Code(s): 279554894 (3) Cellulitis of left knee Current Visit: No Status: Acute Code(s): L03.116 - CELLULITIS OF LEFT LOWER LIMB SNOMED Code(s): 62588045253079914 Plan: 1patient with a left knee septic prepatellar bursitis for the patient has been on daptomycin in the outpatient setting now being admitted to the hospital with acute kidney injury at the patient has significant jump in her creatinine up to 3.21 questionable related to her Aleve plus lisinopril as no nephrotoxicity has been associated with the daptomycin 2-patient did have improving her kidney function as well as to the left knee swelling redness, to continue with daptomycin at 4 mg/kg q. 48-hour while inpatient Dictation was produced using [employer] dictation software. please excuse any grammatical, word or spelling errors. Time with Patient: Less than 30
--- NOTE | 2024-01-09 05:47 | P.PN ---
Subjective Progress Note Date: 01/08/24 Patient is a 83-year-old female with past medical history of hypertension, GERD, recent left knee septic prepatellar bursitis currently on IV daptomycin at home presents to ER with complaints of abnormal labs. Patient had lab test done by her primary care physician and was seen by Dr. Ortega. Patient was advised to go to ER. Otherwise patient denied any complaints of fever or chills. Denied any dysuria or hematuria. No nausea vomiting abdominal pain or diarrhea. On admission BUN 37 creatinine 2.89 and blood sugar 128. Urinalysis is negative for infection. Renal ultrasound showed no acute process. EKG showed normal sinus rhythm. Other laboratory data reviewed. 01/07/2024 Patient is seen and evaluated in follow-up this morning with nephrology and infectious disease following. Patient is continued on IV antibiotics for left knee prepatellar bursitis. Patient reports her swelling of the left knee has significantly improved and reports to feeling better asking if she can go home. Per ID recommendations patient will require continued IV antibiotic therapy at this time due to significant swelling and discoloration of the skin. Will adjust pain medications accordingly as patient is reporting continued left lower extremity pain. 01/08/2024 Patient is seen and evaluated in follow-up today continued on IV antibiotics in the form of daptomycin with infectious disease following. Patient is continued on every 48 hour administration of antibiotics due to kidney functions. Nephr ology following and creatinine trending down recommend follow-up labs. Continue holding losartan at this time. Left knee appears improved and swelling and redness is improving. Continue gentle hydration and will follow-up on labs in the a.m. Replace electrolytes per protocol. Review of systems: Constitutional: No reports of fatigue, fever, or chills Cardiovascular: No reports of chest pain or palpitations Respiratory: No reports of shortness of breath or cough GI: No reports of nausea, vomiting, or diarrhea : No reports of dysuria or retention Neurovascular: No reports of weakness or numbness, reports some mild left knee pain but has improved since yesterday All medications have been reviewed Physical exam: Patient is lying in the bed comfortably, no acute distress, awake alert and oriented.. Elderly appearing, obese HEENT: Normocephalic. Neck is supple. Pupils reactive. Nostrils clear. Oral cavity is moist. Neck reveals no JVD, carotid bruits, or thyromegaly. CHEST EXAMINATION: Trachea is central. Symmetrical expansion. Lung saldaña clear to auscultation and percussion. CARDIAC: Normal S1, S2 with no gallops. No murmurs ABDOMEN: Soft. Bowel sounds normal. No organomegaly. No abdominal bruits. Extremities: reveal no edema. Left suprapatellar knee swelling and redness noted, improving from yesterday. Mild tenderness. No clubbing or cyanosis Neurologically awake, alert, oriented x3 with well-coordinated movements. No focal deficits noted Skin: No rash or skin lesions. Psychiatric: Cooperative. Non-suicidal Musculoskeletal: No joint swelling or deformity. Normal range of motion. Assessment: Acute kidney injury likely due to ATN and also use of losartan. Creatinine 2.8 on admission. Baseline creatinine level around 1. Left septic prepatellar bursitis. Currently on IV antibiotic therapy with daptomycin at home. Hypertension uncontrolled. GERD History of diverticular disease History of bladder surgery Anxiety Normocytic anemia Thrombocytosis Prior history of smoking Obesity with a BMI of 37.5 DVT prophylaxis with heparin subcu GI prophylaxis Full code Plan: Patient will be continued on IV hydration with normal saline. Continues on daptomycin as per ID recommendations. Kidney functions are trending down and improving. Nephrology following and will repeat a.m. labs Titrate blood pressure medications. Continue holding losartan Encouraged to increase activity as tolerated. Will follow-up with infectious disease regarding discharge planning. Possible discharge within the next 48 hours. The impression and plan of care has been dictated by Dorcas Zheng, Nurse Practitioner as directed. Dr. Eddy MD I have performed a history and examination and MDM of this patient, discussed the same with the dictator, and agree with the dictator's assessment and plan as written ,documented as a scribe. Based on total visit time, I have performed more than 50% of the visit. Objective - Vital Signs Vital signs: Vital Signs Temp 98.5 F 01/09/24 03:29 Pulse 79 01/09/24 03:29 Resp 16 01/09/24 03:29 BP 136/80 01/09/24 03:29 Pulse Ox 95 01/09/24 03:29 FiO2 Intake & Output 01/08/24 01/08/24 01/09/24 06:59 18:59 06:59 Intake Total 236 Balance 236 Intake: Oral 236 Other: Voiding Method Toilet Toilet # Voids 1 4 3 - Labs CBC & Chem 7: 01/06/24 06:46 01/08/24 05:43 Labs: Abnormal Lab Results - Last 24 Hours (Table) 01/08/24 Range/Units 05:43 Anion Gap 12.10 H (4.00-12.00) mmol/L Creatinine 2.0 H (0.6-1.5) mg/dL Est GFR (CKD-EPI) 25 L (>=60) BUN/Creatinine Ratio 11.90 L (12.00-20.00) Ratio
[2024-01-09 09:38] LABS: BUN/Creat Ratio 11.06 Ratio (12.00-20.00); Blood Urea Nitrogen 19.9 mg/dL (9.0-27.0); Calcium 8.8 mg/dL (8.7-10.3); Chloride 104 mmol/L (96-109); Glucose 83 mg/dL (70-110); Magnesium 1.5 mg/dL (1.5-2.4); Potassium 4.7 mmol/L (3.5-5.5); Sodium 138 mmol/L (135-145)
--- NOTE | 2024-01-09 10:39 | P.PN ---
Subjective Patient is seen in follow-up for acute kidney injury. Renal function slowly improving. Creatinine 1.8. Hemodynamically stable. Receiving IV fluids. Oral intake fair. Admits to good urine output. Vital signs are stable. General: No acute distress. HEENT: Head exam is unremarkable. LUNGS: No audible rhonchi or wheezes. HEART: Rate and Rhythm are regular. ABDOMEN: Nontender. EXTREMITITES: No edema. Objective - Vital Signs Vital signs: Vital Signs Temp 98.2 F 01/09/24 07:00 Pulse 79 01/09/24 07:00 Resp 16 01/09/24 07:00 BP 131/75 01/09/24 07:00 Pulse Ox 94 L 01/09/24 07:00 FiO2 Intake & Output 01/08/24 01/09/24 01/09/24 18:59 06:59 18:59 Intake Total 236 Balance 236 Intake: Oral 236 Other: Voiding Method Toilet Toilet # Voids 4 3 - Labs CBC & Chem 7: 01/06/24 06:46 01/09/24 05:13 Labs: Abnormal Lab Results - Last 24 Hours (Table) 01/09/24 Range/Units 05:13 Carbon Dioxide 21.0 L (21.6-31.8) mmol/L Anion Gap 13.00 H (4.00-12.00) mmol/L Creatinine 1.8 H (0.6-1.5) mg/dL Est GFR (CKD-EPI) 28 L (>=60) BUN/Creatinine Ratio 11.06 L (12.00-20.00) Ratio Assessment and Plan Plan: Assessment: 1. Acute kidney injury secondary to ATN secondary to hypovolemia further worsened with the use of losartan. Creatinine 3.2 dated January 03, 2024 and improved to 1.8 today. Baseline creatinine near 1. No hydronephrosis noted on kidney ultrasound. UA benign. 2. Left patella cellulitis. On IV antibiotics. 3. Benign hypertension. Stable. 4. Metabolic acidosis secondary to acute kidney injury on IV fluids. On oral bicarb. Stable. Plan: Maintain IV fluids. Encouraged oral intake. Avoid nephrotoxins.
--- NOTE | 2024-01-09 14:57 | P.PN ---
Subjective Progress Note Date: 01/09/24 Principal diagnosis: Reason for follow-up is left knee septic bursitis Patient is a 83-year-old female with a past medical history significant for reflux hypertension pneumonia recently admitted to this facility with the left knee septic prepatellar bursitis treated with vancomycin did have a discharge creatinine of 1.08 and was discharged on daptomycin with subsequent follow-up blood work in the outpatient setting shows a creatinine of 3.214 the patient has been admitted to the hospital On today's evaluation that is 01/09/2024, Patient is afebrile patient is cur rently on room air and denies having any shortness of breath, the patient has been complaining of some central chest pain today some nausea but no vomiting no abdominal pain or pain to his left knee area. Patient creatinine around 1.8 Objective - Vital Signs Vital signs: Vital Signs Temp 98.2 F 01/09/24 07:00 Pulse 79 01/09/24 07:00 Resp 16 01/09/24 07:00 BP 131/75 01/09/24 07:00 Pulse Ox 94 L 01/09/24 07:00 FiO2 Intake & Output 01/08/24 01/09/24 01/09/24 18:59 06:59 18:59 Intake Total 236 Balance 236 Intake: Oral 236 Other: Voiding Method Toilet Toilet # Voids 4 3 - Exam GENERAL DESCRIPTION: An elderly female lying in bed in no distress RESPIRATORY SYSTEM: Unlabored breathing , decreased breath sounds at bases HEART: S1 S2 regular rate and rhythm , ABDOMEN: Soft , no tenderness EXTREMITIES: Left knee swelling redness has decreased - Labs CBC & Chem 7: 01/06/24 06:46 01/09/24 05:13 Labs: Abnormal Lab Results - Last 24 Hours (Table) 01/09/24 Range/Units 05:13 Carbon Dioxide 21.0 L (21.6-31.8) mmol/L Anion Gap 13.00 H (4.00-12.00) mmol/L Creatinine 1.8 H (0.6-1.5) mg/dL Est GFR (CKD-EPI) 28 L (>=60) BUN/Creatinine Ratio 11.06 L (12.00-20.00) Ratio Assessment and Plan (1) Septic prepatellar bursitis of right knee Current Visit: Yes Status: Acute Code(s): M71.161 - OTHER INFECTIVE BURSITIS , RIGHT KNEE SNOMED Code(s): 3202607416086015 (2) Allergy to cephalosporin Current Visit: No Status: Acute Code(s): Z88.1 - ALLERGY STATUS TO OTHER ANTIBIOTIC AGENTS SNOMED Code(s): 759693485 (3) Cellulitis of left knee Current Visit: No Status: Acute Code(s): L03.116 - CELLULITIS OF LEFT LOWER LIMB SNOMED Code(s): 66492300549381844 Plan: 1patient with a left knee septic prepatellar bursitis for the patient has been on daptomycin in the outpatient setting now being admitted to the hospital with acute kidney injury at the patient has significant jump in her creatinine up to 3.21 questionable related to her Aleve plus lisinopril as no nephrotoxicity has been associated with the daptomycin 2-patient kidney function slowly improving patient to continue with IV daptomycin while inpatient and finishing up the doses of daptomycin she had at home question concern answered Dictation was produced using [email or web address] dictation software. please excuse any grammatical, word or spelling errors. Time with Patient: Less than 30
--- NOTE | 2024-01-10 05:48 | P.PN ---
Subjective Progress Note Date: 01/09/24 Patient is a 83-year-old female with past medical history of hypertension, GERD, recent left knee septic prepatellar bursitis currently on IV daptomycin at home presents to ER with complaints of abnormal labs. Patient had lab test done by her primary care physician and was seen by Dr. Ortega. Patient was advised to go to ER. Otherwise patient denied any complaints of fever or chills. Denied any dysuria or hematuria. No nausea vomiting abdominal pain or diarrhea. On admission BUN 37 creatinine 2.89 and blood sugar 128. Urinalysis is negative for infection. Renal ultrasound showed no acute process. EKG showed normal sinus rhythm. Other laboratory data reviewed. 01/07/2024 Patient is seen and evaluated in follow-up this morning with nephrology and infectious disease following. Patient is continued on IV antibiotics for left knee prepatellar bursitis. Patient reports her swelling of the left knee has significantly improved and reports to feeling better asking if she can go home. Per ID recommendations patient will require continued IV antibiotic therapy at this time due to significant swelling and discoloration of the skin. Will adjust pain medications accordingly as patient is reporting continued left lower extremity pain. 01/08/2024 Patient is seen and evaluated in follow-up today continued on IV antibiotics in the form of daptomycin with infectious disease following. Patient is continued on every 48 hour administration of antibiotics due to kidney functions. Nephr ology following and creatinine trending down recommend follow-up labs. Continue holding losartan at this time. Left knee appears improved and swelling and redness is improving. Continue gentle hydration and will follow-up on labs in the a.m. Replace electrolytes per protocol. 01/09/2024 Patient is seen and evaluated in follow-up today with no acute overnight issues noted. Patient is being followed by nephrology and infectious disease maintained on IV antibiotics in the form of daptomycin. Patient does have a PICC line and will continue on IV antibiotics outpatient. Kidney functions sta ble at this time. Will discuss further with consultations regarding discharge planning with possible discharge home in the next 24 hours. Review of systems: Constitutional: No reports of fatigue, fever, or chills Cardiovascular: No reports of chest pain or palpitations Respiratory: No reports of shortness of breath or cough GI: No reports of nausea, vomiting, or diarrhea : No reports of dysuria or retention Neurovascular: No reports of weakness or numbness, reports some mild left knee pain but has improved since yesterday All medications have been reviewed Physical exam: Patient is lying in the bed comfortably, no acute distress, awake alert and oriented.. Elderly appearing, obese HEENT: Normocephalic. Neck is supple. Pupils reactive. Nostrils clear. Oral cavity is moist. Neck reveals no JVD, carotid bruits, or thyromegaly. CHEST EXAMINATION: Trachea is central. Symmetrical expansion. Lung salda[place] clear to auscultation and percussion. CARDIAC: Normal S1, S2 with no gallops. No murmurs ABDOMEN: Soft. Bowel sounds normal. No organomegaly. No abdominal bruits. Extremities: reveal no edema. Left suprapatellar knee swelling and redness noted, improving from yesterday. Mild tenderness. No clubbing or cyanosis Neurologically awake, alert, oriented x3 with well-coordinated movements. No focal deficits noted Skin: No rash or skin lesions. Psychiatric: Cooperative. Non-suicidal Musculoskeletal: No joint swelling or deformity. Normal range of motion. Assessment: Acute kidney injury likely due to ATN and also use of losartan. Creatinine 2.8 on admission. Baseline creatinine level around 1. Left septic prepatellar bursitis. Currently on IV antibiotic therapy with daptomycin at home. Hypertension uncontrolled. GERD History of diverticular disease History of bladder surgery Anxiety Normocytic anemia Thrombocytosis Prior history of smoking Obesity with a BMI of 37.5 DVT prophylaxis with heparin subcu GI prophylaxis Full code Plan: Patient will be continued on IV hydration with normal saline. Continues on daptomycin as per ID recommendations. Kidney functions are trending down and improving. Nephrology following and will repeat a.m. labs Titrate blood pressure medications. Continue holding losartan Encouraged to increase activity as tolerated. Will follow-up with infectious disease regarding discharge planning. Possible discharge within the next 24 hours. The impression and plan of care has been dictated by Dorcas Zheng, Nurse Practitioner as directed. Dr. Eddy MD I have performed a history and examination and MDM of this patient, discussed the same with the dictator, and agree with the dictator's assessment and plan as written ,documented as a scribe. Based on total visit time, I have performed more than 50% of the visit. Objective - Vital Signs Vital signs: Vital Signs Temp 98.3 F 01/10/24 02:00 Pulse 87 01/10/24 02:00 Resp 17 01/10/24 02:00 BP 100/83 01/10/24 02:00 Pulse Ox 97 01/10/24 02:00 FiO2 Intake & Output 01/09/24 01/09/24 01/10/24 06:59 18:59 06:59 Intake Total 236 Balance 236 Intake: Oral 236 Other: Voiding Method Toilet Toilet Toilet # Voids 3 3 2 - Labs CBC & Chem 7: 01/06/24 06:46 01/09/24 05:13 Labs: Abnormal Lab Results - Last 24 Hours (Table) 01/09/24 Range/Units 05:13 Carbon Dioxide 21.0 L (21.6-31.8) mmol/L Anion Gap 13.00 H (4.00-12.00) mmol/L Creatinine 1.8 H (0.6-1.5) mg/dL Est GFR (CKD-EPI) 28 L (>=60) BUN/Creatinine Ratio 11.06 L (12.00-20.00) Ratio
[2024-01-10 08:03] VITALS: BP 133/75; PULSE 76; RESP 16; TEMP 98.7
[2024-01-10 08:49] LABS: BUN/Creat Ratio 11.78 Ratio (12.00-20.00); Blood Urea Nitrogen 21.2 mg/dL (9.0-27.0); Glucose 97 mg/dL (70-110); Magnesium 1.6 mg/dL (1.5-2.4)
[2024-01-10 08:50] LABS: Calcium 9.2 mg/dL (8.7-10.3); Carbon Dioxide 22.3 mmol/L (21.6-31.8); Chloride 105 mmol/L (96-109); Potassium 4.3 mmol/L (3.5-5.5); Sodium 140 mmol/L (135-145)
--- NOTE | 2024-01-10 21:14 | P.PN ---
Subjective Patient is seen for follow-up for acute kidney injury. Renal function has improved. Serum creatinine at 1.8 today. Objective - Vital Signs Vital signs: Vital Signs Temp 98.7 F 01/10/24 07:00 Pulse 76 01/10/24 07:00 Resp 16 01/10/24 07:00 BP 133/75 01/10/24 07:00 Pulse Ox 97 01/10/24 07:00 FiO2 Intake & Output 01/10/24 01/10/24 01/11/24 06:59 18:59 06:59 Other: Voiding Method Toilet # Voids 1 3 - Exam Patient is awake, comfortable, no acute distress. Examination of the heart S1 and S2 Examination of the bilateral breath sounds are heard Examination lower extremities shows no significant edema. - Labs CBC & Chem 7: 01/06/24 06:46 01/10/24 04:28 Labs: Abnormal Lab Results - Last 24 Hours (Table) 01/10/24 Range/Units 04:28 Anion Gap 12.70 H (4.00-12.00) mmol/L Creatinine 1.8 H (0.6-1.5) mg/dL Est GFR (CKD-EPI) 28 L (>=60) BUN/Creatinine Ratio 11.78 L (12.00-20.00) Ratio Assessment and Plan Assessment: 1. Acute kidney injury secondary to ATN secondary to hypovolemia further worsened with the use of losartan. Creatinine 3.2 dated January 03, 2024 and improved to 1.8 today. Baseline creatinine near 1. No hydronephrosis noted on kidney ultrasound. UA benign. 2. Left patella cellulitis. On IV antibiotics. 3. Benign hypertension. Stable. 4. Metabolic acidosis secondary to acute kidney injury on IV fluids. On oral bicarb. Stable. Plan: Patient can be discharged from nephrology standpoint. Follow-up as outpatient in 1 to 2 weeks
--- NOTE | 2024-01-10 22:53 | P.PN ---
Subjective Progress Note Date: 01/10/24 Principal diagnosis: Reason for follow-up is left knee septic bursitis Patient is a 83-year-old female with a past medical history significant for reflux hypertension pneumonia recently admitted to this facility with the left knee septic prepatellar bursitis treated with vancomycin did have a discharge creatinine of 1.08 and was discharged on daptomycin with subsequent follow-up blood work in the outpatient setting shows a creatinine of 3.214 the patient has been admitted to the hospital On today's evaluation that is 01/10/2024, patient has been afebrile, patient is breathing comfortably and is currently on room air, patient denies having any significant cough no chest pain, patient denies nausea vomiting or diarrhea and no abdominal pain patient pain to the left knee has decreased in intensity. The patient creatinine around 1.8 Objective - Vital Signs Vital signs: Vital Signs Temp 98.7 F 01/10/24 07:00 Pulse 76 01/10/24 07:00 Resp 16 01/10/24 07:00 BP 133/75 01/10/24 07:00 Pulse Ox 97 01/10/24 07:00 FiO2 Intake & Output 01/09/24 01/10/24 01/10/24 18:59 06:59 18:59 Intake Total 236 Balance 236 Intake: Oral 236 Other: Voiding Method Toilet Toilet # Voids 3 1 - Exam GENERAL DESCRIPTION: An elderly female lying in bed in no distress RESPIRATORY SYSTEM: Unlabored breathing , decreased breath sounds at bases HEART: S1 S2 regular rate and rhythm , ABDOMEN: Soft , no tenderness EXTREMITIES: Left knee swelling redness has decreased - Labs CBC & Chem 7: 01/06/24 06:46 01/10/24 04:28 Labs: Abnormal Lab Results - Last 24 Hours (Table) 01/10/24 Range/Units 04:28 Anion Gap 12.70 H (4.00-12.00) mmol/L Creatinine 1.8 H (0.6-1.5) mg/dL Est GFR (CKD-EPI) 28 L (>=60) BUN/Creatinine Ratio 11.78 L (12.00-20.00) Ratio Assessment and Plan (1) Septic prepatellar bursitis of right knee Status: Acute Code(s): M71.161 - OTHER INFECTIVE BURSITIS, RIGHT KNEE SNOMED Code(s): 4904442856340817 (2) Allergy to cephalosporin Status: Acute Code(s): Z88.1 - ALLERGY STATUS TO OTHER ANTIBIOTIC AGENTS SNOMED Code(s): 195690130 (3) Cellulitis of left knee Status: Acute Code(s): L03.116 - CELLULITIS OF LEFT LOWER LIMB SNOMED Code(s): 10119709283666453 Plan: 1patient with a left knee septic prepatellar bursitis for the patient has been on daptomycin in the outpatient setting now being admitted to the hospital with acute kidney injury at the patient has significant jump in her creatinine up to 3.21 questionable related to her Aleve plus lisinopril as no nephrotoxicity has been associated with the daptomycin 2-patient has shown overall improvement to the left knee area no need for continuation of IV daptomycin on discharge recommended discontinue midline on discharge, prescription for oral doxycycline has been sent with the patient in the close outpatient follow-up Dictation was produced using [employer] dictation software. please excuse any grammatical, word or spelling errors. Time with Patient: Less than 30
--- NOTE | 2024-01-15 07:37 | P.DS ---
Providers Date of admission: 01/08/24 11:41 Expected date of discharge: 01/10/24 Attending physician: Mil Kam Consults: 01/05/24 21:00 Consult Physician Urgent Consulting Provider: Atif Forbes Consult Reason/Comments: dani Do you want consulting provider notified?: Yes Consult Physician Urgent Consulting Provider: Tari Ortega Consult Reason/Comments: cellulitis, dani Do you want consulting provider notified?: Yes Primary care physician: Racquel Chang Hospital Course: Final diagnosis Acute kidney injury likely due to ATN and also use of losartan. Creatinine 2.8 on admission. Baseline creatinine level around 1. Left septic prepatellar bursitis. Currently on IV antibiotic therapy with daptomycin at home. Will transition to oral antibiotics on discharge per ID recommendations Hypertension uncontrolled. GERD History of diverticular disease History of bladder surgery Anxiety Normocytic anemia Thrombocytosis Prior history of smoking Obesity with a BMI of 37.5 DVT prophylaxis with heparin subcu GI prophylaxis Full code Discharge disposition Patient is being discharged in a stable condition with guarded prognosis to home. Patient will follow-up with Dr. Chang in the outpatient setting upon discharge. Patient is to continue with oral doxycycline per ID recommendations and outpatient follow-up with Dr. Ortega as scheduled. Total time taken is greater than 35 minutes. Hospital course This is a 83-year-old female who was recently admitted with concerns of left septic prepatellar bursitis with failure of outpatient treatment. Patient ma intained on daptomycin outpatient although having increasing redness and swelling to the right knee with concerns of prepatellar bursitis. Patient also with an acute kidney injury showing improvements after hydration and also maintained on IV antibiotics with infectious disease following. Swelling and redness has improved and patient's pain is improved as well and will be continued on oral doxycycline on discharge. Patient has been cleared by consultations recommending outpatient follow-up with infectious disease as scheduled. Please refer to other consultation notes for further HPI. Currently no reports of chest pain, shortness of breath, or palpitations. Patient is afebrile. No reports of nausea or vomiting and patient is tolerating diet. Patient will be discharged home today. Physical exam: Gen: This is a 83-year-old female who is awake, alert and oriented x 3, well- developed, elderly appearing, obese HEENT: Head is atraumatic, normocephalic. Pupils equal, round. Sclerae is anicteric. NECK: Supple. No JVD. No lymphadenopathy. No thyromegaly. LUNGS: Diminished breath sounds bilaterally otherwise clear to auscultation. No wheezes or rhonchi. No intercostal retractions. HEART: Regular rate and rhythm. No murmur. ABDOMEN: Soft. Bowel sounds are present. No masses. No tenderness. EXTREMITIES: No pedal edema. No calf tenderness. Right knee redness and swelling significantly improved NEUROLOGICAL: Patient is awake, alert and oriented x3. Cranial nerves 2 through 12 are grossly intact. Please refer to medication reconciliation sheet for a list of medications. The impression and plan of care has been dictated by Dorcas Zheng, Nurse Practitioner as directed. Dr. Melvi MD I have performed a history and examination and MDM of this patient, discussed the same with the dictator, and agree with the dictator's assessment and plan as written ,documented as a scribe. Based on total visit time, I have performed more than 50% of the visit. Patient Condition at Discharge: Stable Plan - Discharge Summary Discharge Rx Participant: No New Discharge Prescriptions: New Acetaminophen Tab [Tylenol] 650 mg PO Q6HR PRN tab PRN Reason: Fever And/ Or Pain Doxycycline Hyclate 100 mg PO BID 10 Days #20 tab amLODIPine [Norvasc] 5 mg PO BID #60 tab Famotidine [Pepcid] 20 mg PO DAILY #30 tab Sodium Bicarbonate Tab 650 mg PO BID #60 tab Continue HYDROcodone/APAP 10-325MG [[place] 10-325] 1 tab PO TID PRN PRN Reason: Pain Gabapentin [Neurontin] 200 mg PO BID cap Discontinued Losartan Potassium [Cozaar] 100 mg PO DAILY amLODIPine [Norvasc] 5 mg PO DAILY DAPTOmycin [Cubicin] 300 mg IVPB Q24HR each Discharge Medication List HYDROcodone/APAP 10-325MG [[place] 10-325] 1 tab PO TID PRN 05/19/22 [History] Gabapentin [Neurontin] 200 mg PO BID cap 12/30/23 [Rx] Acetaminophen Tab [Tylenol] 650 mg PO Q6HR PRN tab 01/10/24 [Rx] Doxycycline Hyclate 100 mg PO BID 10 Days #20 tab 01/10/24 [Rx] Famotidine [Pepcid] 20 mg PO DAILY #30 tab 01/10/24 [Rx] Sodium Bicarbonate Tab 650 mg PO BID #60 tab 01/10/24 [Rx] amLODIPine [Norvasc] 5 mg PO BID #60 tab 01/10/24 [Rx] Follow up Appointment(s)/Referral(s): Racquel Chang DO [Primary Care Provider] - 1-2 days Tari Ortega MD [STAFF PHYSICIAN] - 01/17/24 1:30 pm Patient Instructions/Handouts: Acute Kidney Injury (DC) Activity/Diet/Wound Care/Special Instructions: Activity limited until follow-up Follow-up with infectious disease outpatient in 1 to 2 weeks Continue taking antibiotics as prescribed Follow-up with primary care provider on discharge Follow-up orthopedics outpatient Discharge Disposition: HOME SELF-CARE
== END 2024-01-10 15:55 | disposition home or self-care (01) | DRG 557 ==
LOC: EC 16:59 → 6NMEDSUR 21:03 → OBSVTOIN 01-08 11:41
PROVIDERS: ADMIT Internal Medicine; ATTEND Internal Medicine
DX: M71.162 Other infective bursitis, left knee (principal); N17.0 Acute kidney failure with tubular necrosis; E87.20 Acidosis, unspecified; L03.116 Cellulitis of left lower limb; E66.9 Obesity, unspecified; K21.9 Gastro-esophageal reflux disease without esophagitis; I10 Essential (primary) hypertension; F41.9 Anxiety disorder, unspecified; D64.9 Anemia, unspecified; D75.839 Thrombocytosis, unspecified; E86.1 Hypovolemia; Z68.37 Body mass index [BMI] 37.0-37.9, adult; Z79.899 Other long term (current) drug therapy; Z87.891 Personal history of nicotine dependence; Z88.1 Allergy status to other antibiotic agents
CPT/HCPCS: 36415; 51798; 76770; 80048; 80053; 81003; 82607; 82747; 83540; 83550; 83735; 85025; 93005; 99285

== ENCOUNTER 2024-08-25 05:31 | Observation (INO) | payer MEDICARE ==
[2024-08-25 05:36] VITALS: RESP 18; TEMP 99
[2024-08-25] MEDS: ASPIRIN 81 MG PO STA (06:14)
[2024-08-25] MEDS: NITROGLYCERIN SL TABS 0.4 MG TAB SUBLINGUAL STA (06:15)
--- NOTE | 2024-08-25 06:28 | ED ---
Chest Pain HPI - General Chief Complaint: Chest Pain Stated Complaint: Chest Pain Time Seen by Provider: 08/25/24 05:55 Source: patient, EMS, RN notes reviewed Mode of arrival: EMS Limitations: no limitations - History of Present Illness Initial Comments: This is an 83-year-old female who presents to the emergency department for chest pain. Patient states that she was not sleeping well last night because she was very achy. States that around 4:30 AM when she was finally dozing off to sleep she started to develop pain in the left side of her chest. States that it started out sharp and then turned into a dull ache. She then developed radiation into her left arm. States that the pain was more so under the left breast and into the left upper abdomen and left rib cage. The pain is less prominent than it was, but is still bothersome. Denies any nausea or vomiting. Denies any shortness of breath. Denies any history of cardiac issues. MD Complaint: chest pain - Related Data Home Medications Medication Instructions Recorded Confirmed HYDROcodone/APAP 10-325MG [[place] 1 tab PO TID PRN 05/19/22 08/25/24 10-325] Gabapentin [Neurontin] 300 mg PO BID 08/25/24 08/25/24 Metoprolol Tartrate [Lopressor] 50 mg PO BID 08/25/24 08/25/24 Nitroglycerin Sl Tabs [Nitrostat] 0.4 mg SUBLINGUAL Q5M PRN 08/25/24 08/25/24 lisinopriL [Zestril] 10 mg PO BID 08/25/24 08/25/24 Allergies Allergy/AdvReac Type Severity Reaction Status Date / Time cephalexin [From Keflex] Allergy Swelling Verified 08/25/24 09:43 nitrofurantoin Allergy Swelling Verified 08/25/24 09:43 [From Macrobid] sulfamethoxazole Allergy Swelling Verified 08/25/24 09:43 [From Bactrim] trimethoprim [From Bactrim] Allergy Swelling Verified 08/25/24 09:43 Review of Systems ROS Statement: Those systems with pertinent positive or pertinent negative responses have been documented in the HPI. ROS Other: All systems not noted in ROS Statement are negative. Past Medical History Past Medical History: Chest Pain / Angina, GERD/Reflux, Hypertension, Pneumonia Additional Past Medical History / Comment(s): left ankle pain, DIVERTICULAR DISEASE,ARTHRITIS, Vertigo History of Any Multi-Drug Resistant Organisms: None Reported Past Surgical History: Appendectomy, Bladder Surgery, Heart Catheterization, Hysterectomy Additional Past Surgical History / Comment(s): BOWEL RESECTION, UMB HERNIA REPAIR, MILLER CATARACTS,COLONOSCOPY Past Anesthesia/Blood Transfusion Reactions: Motion Sickness Past Psychological History: Anxiety Smoking Status: Former smoker Past Alcohol Use History: None Reported Past Drug Use History: None Reported - Past Family History Mother Family Medical History: CVA/TIA, Dementia, Hypertension, Seizure Disorder Additional Family Medical History / Comment(s): AT AGE 83 Father Family Medical History: Diabetes Mellitus, Hypertension Additional Family Medical History / Comment(s): HERNIA General Exam Limitations: no limitations General appearance: alert, in no apparent distress Head exam: Present: atraumatic, normocephalic, normal inspection Respiratory exam: Present: normal lung sounds bilaterally, chest wall tenderness. Absent: respiratory distress, wheezes, rales, rhonchi, stridor Cardiovascular Exam: Present: regular rate, normal rhythm GI/Abdominal exam: Present: soft, tenderness (LUQ). Absent: distended Neurological exam: Present: alert, oriented X3, CN II-XII intact Psychiatric exam: Present: normal affect, normal mood Skin exam: Present: warm, dry, intact, normal color. Absent: rash Course Vital Signs 08/25/24 08/25/24 08/25/24 05:32 06:07 07:23 Temperature 99.0 F Pulse Rate 66 58 L Respiratory 18 18 Rate Blood Pressure 158/84 118/56 O2 Sat by Pulse 95 100 Oximetry 08/25/24 08/25/24 08/25/24 08:00 09:00 10:00 Temperature Pulse Rate 54 L 62 60 Respiratory 18 18 18 Rate Blood Pressure 126/61 126/81 120/62 O2 Sat by Pulse 98 98 98 Oximetry 08/25/24 08/25/24 11:00 13:00 Temperature Pulse Rate 52 L 72 Respiratory 18 18 Rate Blood Pressure 112/66 155/89 O2 Sat by Pulse 92 L 98 Oximetry Chest Pain MDM - MDM This is an 83 year old female who presents to the emergency department for chest pain. Was pt. sent in by a medical professional or institution? @ -No Did you speak to anyone other than the patient for history? @ -No Did you review nursing and triage notes? @ -Yes, and I agree, it is accurate with regards to the patient's symptoms. Were old charts reviewed? @ -Cardiac catheterization from 08/30/2023 which was normal. Differential Diagnosis? @ -Differential Chest Pain: Stable Angina, Unstable Angina, STEMI, NSTEMI Aortic Dissection, Pneumothorax, Musculoskeletal, Esophageal Spasm GERD, Cholecystitis, Pancreatitis, Zoster, this is not meant to be an all-inclusive list. EKG interpreted by me (3pts min.)? @ -EKG interpreted by me demonstrating the following: Sinus rhythm. Ventricular rate 64 bpm, NC interval 184 ms, QRS duration 96 ms, QTc 398 ms. X-rays interpreted by me (1pt min.)? @ -Chest x-ray obtained, my interpretation identifies no localized consolidations or infiltrates. CT interpreted by me (1pt min.)? @ -Not obtained U/S interpreted by me (1pt. min.)? @ -Not obtained What testing was considered but not performed? (CT, X-rays, U/S, labs)? Why? @ -None What meds were considered but not given? Why? @ -None Did you discuss the management of the patient with other professionals? @ -Yes, Dr. Fernandez, who accepts the patient for admission. Did you reconcile home meds? @ -Yes Was smoking cessation discussed for >3mins.? @ -No Was critical care preformed (if so, how long)? @ -No Were there social determinants of health that impacted care today? How? (Homelessness, low income, unemployed, alcoholism, drug addiction, transportation, low edu. Level, literacy, decrease access to med. care, shelter, rehab)? @ -No Was there de-escalation of care discussed even if they declined? (Discuss DNR or withdrawal of care, Hospice)? @ -No What co-morbidities impacted this encounter? (DM, HTN, Smoking, COPD, CAD, Cancer, CVA, Hep., AIDS, mental health diagnosis, sleep apnea, morbid obesity)? @ -HTN Was patient admitted / discharged? @ -Admitted. 324 mg of aspirin and nitroglycerin were administered on arrival. Patient had no improvement in chest pain following nitroglycerin administration . Lab work demonstrates mild leukocytosis with a white blood cell count of 10.74 and is otherwise unremarkable. Troponin negative. Chest x-ray reveals no acute process. Given patient's age and risk factors, she was admitted to medicine for cardiac observation. Serial troponins ordered. Consult placed for cardiology. Case discussed with ED attending Dr. Crawford. Undiagnosed new problem with uncertain prognosis? @ -None Drug Therapy requiring intensive monitoring for toxicity (Heparin, Nitro, Insulin, Cardizem)? @ -None Were any procedures done? @ -None Diagnosis/symptom? @ -Chest pain Acute, or Chronic, or Acute on Chronic? @ -Acute Uncomplicated (without systemic symptoms) or Complicated (systemic symptoms)? @ -Uncomplicated Side effects of treatment? @ -None Exacerbation, Progression, or Severe Exacerbation] @ -Not applicable Poses a threat to life or bodily function? @ -Yes, if due to ACS can be life-threatening Disposition Clinical Impression: Chest pain Disposition: ADMITTED IP TO THIS HOSP
[2024-08-25 06:29] LABS: Basophils # (A) 0.08 10*3/uL (0.00-0.10); Basophils % (A) 0.7 %; Eosinophils # (A) 0.42 10*3/uL (0.04-0.35); Eosinophils % (A) 3.9 %; HCT 41.3 % (37.2-46.3); HGB 13.8 g/dL (12.0-15.0); Lymphocytes # (A) 2.27 10*3/uL (0.90-5.00); Lymphocytes % (A) 21.1 %; MCHC 33.4 g/dL (32.0-37.0); MCV 86.8 fL (80.0-97.0); Monocytes # (A) 0.73 10*3/uL (0.20-1.00); Monocytes % (A) 6.8 %; Neutrophils % (A) 67.1 %; Platelet Count 283 10*3/uL (140-440); RBC 4.76 10*6/uL (4.10-5.20); RDW 14.2 % (11.5-14.5); WBC 10.74 10*3/uL (4.50-10.00)
[2024-08-25 06:44] LABS: Partial Thromboplastin Time 24.6 sec (22.0-30.0); Prothrombin Time 10.9 sec (10.0-12.5)
[2024-08-25] MEDS: MORPHINE SULFATE 4 MG/ML SYRINGE IVP STA (06:46)
[2024-08-25] MEDS: KETOROLAC 15 MG/ML 1 ML VIAL IVP STA (06:46)
[2024-08-25 06:49] LABS: ALT 13 U/L (4-34); AST 20 U/L (14-36); African American GFR (CKD) 75 (>60 ml/min/1.73 sqM); Albumin 4.4 g/dL (3.5-5.0); Alkaline Phosphatase 83 U/L (38-126); Anion Gap 12 mmol/L; Blood Urea Nitrogen 23 mg/dL (7-17); Calcium 9.8 mg/dL (8.4-10.2); Carbon Dioxide 19 mmol/L (22-30); Chloride 109 mmol/L (98-107); Glucose 93 mg/dL (74-99); Lipase 93 U/L (23-300); Non-African American GFR(CKD) 65 (>60 ml/min/1.73 sqM); Potassium 4.4 mmol/L (3.5-5.1); Sodium 140 mmol/L (137-145); Total Bilirubin 0.7 mg/dL (0.2-1.3); Total Protein 7.6 g/dL (6.3-8.2)
--- NOTE | 2024-08-25 07:33 | XR ---
EXAMINATION TYPE: XR chest 2V DATE OF EXAM: 08/25/2024 6:23 AM COMPARISON: 09/05/2023 CLINICAL INDICATION: Female, 83 years old with history of Chest Pain, TECHNIQUE: XR chest 2V view(s) obtained. FINDINGS: The heart size is normal. The pulmonary vasculature is normal. The lungs are clear. IMPRESSION: 1. No acute pulmonary process. [facility], , 08/25/2024 7:30 AM
[2024-08-25] MEDS ORDERED: NALOXONE 0.4 MG/ML 1 ML VIAL IV PRN (07:47)
[2024-08-25] MEDS ORDERED: ACETAMINOPHEN TAB 325 MG TAB PO PRN (07:47)
[2024-08-25] MEDS ORDERED: HYDROcodone/APAP 5-325MG 1 EACH TAB PO PRN (07:47)
[2024-08-25] MEDS ORDERED: MORPHINE SULFATE 4 MG/ML SYRINGE IV PRN (07:47)
[2024-08-25] MEDS ORDERED: ONDANSETRON 4 MG/2 ML VIAL IVP PRN (07:47)
[2024-08-25] MEDS ORDERED: KETOROLAC 15 MG/ML 1 ML VIAL IVP PRN (07:47)
[2024-08-25] MEDS: PANTOPRAZOLE 40 MG/10 ML VIAL IV SCH (10:09)
[2024-08-25] MEDS: HEPARIN SODIUM,PORCINE 5,000 UNIT/ML 1 ML VIAL SQ SCH (10:09)
--- NOTE | 2024-08-25 10:13 | P.HPIM ---
History of Present Illness This is a pleasant 83 years old female with past medical history of multiple medical problems as below. Patient presents because of chest pain of 2 days duration that woke her up from sleep on the left side of the chest radiating to the left arm she felt in the left elbow as well she feels like a pressure and aching is 8/10 in severity currently improved down to 2/10, there is no obvious precipitating or relieving factors other than the medication she received in emergency room. Patient denies dyspnea or coughing. No change in urine or bowel habits. No headache dizziness weakness numbness. She denies smoking alcohol or illicit drugs. She is hemodynamically stable and afebrile. Labs showing WBC of 10.7 rest of CBC, BMP, LFT and INR are were unremarkable. Troponin negative less than 0.012. EKG showing sinus rhythm at [address]-T changes and chest x-ray showing no acute process. Review of Systems Review of systems CONSTITUTIONAL: No fever, no malaise, no fatigue. HEENT: No recent visual problems or hearing problems. Denied any sore throat. CARDIOVASCULAR: No orthopnea, PND, no palpitations, no syncope. PULMONARY: No shortness of breath, no cough, no hemoptysis. GASTROINTESTINAL: No diarrhea, no nausea, no vomiting, no abdominal pain. Normoactive bowel sounds. NEUROLOGICAL: No headaches, no weakness, no numbness. HEMATOLOGICAL: Denies any bleeding or petechiae. GENITOURINARY: Denies any burning micturition, frequency, or urgency. MUSCULOSKELETAL/RHEUMATOLOGICAL: Denies any joint pain, swelling, or any muscle pain. ENDOCRINE: Denies any polyuria or polydipsia. Past Medical History Past Medical History: Chest Pain / Angina, GERD/Reflux, Hypertension, Pneumonia Additional Past Medical History / Comment(s): left ankle pain, DIVERTICULAR DISEASE,ARTHRITIS, Vertigo History of Any Multi-Drug Resistant Organisms: None Reported Past Surgical History: Appendectomy, Bladder Surgery, Heart Catheterization, Hysterectomy Additional Past Surgical History / Comment(s): BOWEL RESECTION, UMB HERNIA REPAIR, MILLER CATARACTS,COLONOSCOPY Past Anesthesia/Blood Transfusion Reactions: Motion Sickness Past Psychological History: Anxiety Smoking Status: Former smoker Past Alcohol Use History: None Reported Past Drug Use History: None Reported - Past Family History Mother Family Medical History: CVA/TIA, Dementia, Hypertension, Seizure Disorder Additional Family Medical History / Comment(s): AT AGE 83 Father Family Medical History: Diabetes Mellitus, Hypertension Additional Family Medical History / Comment(s): HERNIA Medications and Allergies Home Medications Medication Instructions Recorded Confirmed Type HYDROcodone/APAP 10-325MG [[place] 1 tab PO TID PRN 05/19/22 08/25/24 History 10-325] amLODIPine [Norvasc] 5 mg PO BID #60 tab 01/10/24 08/25/24 Rx Gabapentin [Neurontin] 300 mg PO BID 08/25/24 08/25/24 History Metoprolol Tartrate [Lopressor] 50 mg PO BID 08/25/24 08/25/24 History Nitroglycerin Sl Tabs [Nitrostat] 0.4 mg SUBLINGUAL Q5M PRN 08/25/24 08/25/24 History lisinopriL [Zestril] 10 mg PO BID 08/25/24 08/25/24 History Allergies Allergy/AdvReac Type Severity Reaction Status Date / Time cephalexin [From Keflex] Allergy Swelling Verified 08/25/24 09:43 nitrofurantoin Allergy Swelling Verified 08/25/24 09:43 [From Macrobid] sulfamethoxazole Allergy Swelling Verified 08/25/24 09:43 [From Bactrim] trimethoprim [From Bactrim] Allergy Swelling Verified 08/25/24 09:43 Physical Exam Vitals: Vital Signs Temp Pulse Resp BP Pulse Ox 08/25/24 08:00 54 L 18 126/61 98 08/25/24 07:23 58 L 18 118/56 100 08/25/24 06:07 158/84 08/25/24 05:32 99.0 F 66 18 95 Intake and Output 08/24/24 08/25/24 08/25/24 22:59 06:59 14:59 Other: Weight 79.832 kg GENERAL: The patient is alert and oriented x3, not in any acute distress. Well developed, well nourished. HEENT: Pupils are round and equally reacting to light. EOMI. No scleral icterus. No conjunctival pallor. Normocephalic, atraumatic. No pharyngeal erythema. No thyromegaly. CARDIOVASCULAR: S1 and S2 present. No murmurs, rubs, or gallops. PULMONARY: Chest is clear to auscultation, no wheezing , no crackles. ABDOMEN: Soft, nontender, nondistended, normoactive bowel sounds. No palpable organomegaly. MUSCULOSKELETAL: No joint swelling or deformity. EXTREMITIES: No cyanosis, clubbing, or pedal edema. NEUROLOGICAL: Gross neurological examination did not reveal any focal deficits. SKIN: No rashes. no petechiae. Results CBC & Chem 7: 08/25/24 05:39 08/25/24 05:39 Labs: Abnormal Lab Results - Last 24 Hours (Table) 08/25/24 08/25/24 Range/Units 05:39 05:39 WBC 10.74 H (4.50-10.00) 10*3/uL MPV 9.0 L (9.5-12.2) fL Eosinophils # 0.42 H (0.04-0.35) 10*3/uL Chloride 109 H (98-107) mmol/L Carbon Dioxide 19 L (22-30) mmol/L BUN 23 H (7-17) mg/dL Assessment and Plan Assessment: Chest pain, could be musculoskeletal, rule out cardiac causes Obesity of BMI 34.4 GERD Hypertension Anxiety Plan: Continue serial troponin Continue with aspirin Cardiology team consult Resume home medication Further recommendation based on the clinical course GI prophylaxis: Pepcid DVT prophylaxis: Subcu heparin Prognosis is guarded
--- NOTE | 2024-08-25 13:35 | P.CRDCN ---
History of Present Illness Consult date: 08/25/24 Consult reason: chest pain History of present illness: This is an 83-year-old female with past medical history of hypertension. We have been asked to evaluate the patient for chest pain. Patient states she does not follow with a educational psychologist. She states that she developed pain in her shoulders and her chest down her left arm when she was trying to fall asleep. Pain is worse with movement. 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 Areas are tender to touch. She states they are not worse with deep breathing. She denies shortness of breath or dizziness, no palpitations, no lower extremity edema. She denies cough or fever. No nausea or vomiting or abdominal pain. She denies blood in her stools or urine. She denies syncopal episodes. She denies history of diabetes. She is a non-smoker. Blood pressure 112/66, heart rate 52, pulse ox 92% on room air. Patient is seen today in the emergency center waiting for a bed on the observation unit. -EKG: Sinus rhythm with occasional PAC. -Chest x-ray: No acute process. -Laboratory studies: WBC 10.7, hemoglobin 13.8. Troponin negative x 3. Creatinine 0.85, potassium 4.4. -Home cardiac medications: Amlodipine 5 mg twice daily, lisinopril 10 mg twice daily, metoprolol tartrate 50 mg twice daily, Nitrostat as needed. -Cardiac catheterization history: 08/2023 revealing no significant CAD. -Patient underwent Lexiscan stress test on 05/17/2023 which was negative for reversible ischemia. -Echocardiogram obtained in May 2023 revealing ejection fraction 55 to 60%, trace MR. Review Of Systems: At the time of my exam: CONSTITUTIONAL: Denies fever or chills. HEENT: Denies blurred vision, vision changes, or eye pain. Denies hemoptysis CARDIOVASCULAR: Reports chest pain. Denies orthopnea. Denies PND. Denies palpitations RESPIRATORY: Denies shortness of breath. GASTROINTESTINAL: Denies abdominal pain. Denies nausea or vomiting. HEMATOLOGIC: Denies bleeding disorders. GENITOURINARY: Denies any blood in urine. SKIN: Denies puritis. Denies rash. Physical examination: Gen: This is an 83-year-old female in no acute distress VS: reviewed HEENT: Head is atraumatic, normocephalic. Pupils equal, round. Sclerae is anicteric. NECK: Supple. No JVD. LUNGS: Clear to auscultation. No wheezes or rhonchi. No intercostal retractions. HEART: Regular rate and rhythm. No murmur. ABDOMEN: Soft No tenderness. EXTREMITIES: No pedal edema. No calf tenderness. NEUROLOGICAL: Patient is awake, alert and oriented x3. Assessment: Noncardiac chest pain Acute coronary syndrome ruled out Hypertension Plan: Continue patient's home cardiac medications No plan for further cardiac workup at this time Patient is cleared for discharge from cardiology. Thank you kindly for this consultation. Nurse practitioner note has been reviewed, I agree with documented findings and plan of care. Patient was seen and examined. Past Medical History Past Medical History: Chest Pain / Angina, GERD/Reflux, Hypertension, Pneumonia Additional Past Medical History / Comment(s): left ankle pain, DIVERTICULAR DISEASE,ARTHRITIS, Vertigo History of Any Multi-Drug Resistant Organisms: None Reported Past Surgical History: Appendectomy, Bladder Surgery, Heart Catheterization, Hysterectomy Additional Past Surgical History / Comment(s): BOWEL RESECTION, UMB HERNIA REPAIR, MILLER CATARACTS,COLONOSCOPY Past Anesthesia/Blood Transfusion Reactions: Motion Sickness Past Psychological History: Anxiety Smoking Status: Former smoker Past Alcohol Use History: None Reported Past Drug Use History: None Reported - Past Family History Mother Family Medical History: CVA/TIA, Dementia, Hypertension, Seizure Disorder Additional Family Medical History / Comment(s): AT AGE 83 Father Family Medical History: Diabetes Mellitus, Hypertension Additional Family Medical History / Comment(s): HERNIA Medications and Allergies Home Medications Medication Instructions Recorded Confirmed Type HYDROcodone/APAP 10-325MG [[place] 1 tab PO TID PRN 05/19/22 08/25/24 History 10-325] amLODIPine [Norvasc] 5 mg PO BID #60 tab 01/10/24 08/25/24 Rx Gabapentin [Neurontin] 300 mg PO BID 08/25/24 08/25/24 History Metoprolol Tartrate [Lopressor] 50 mg PO BID 08/25/24 08/25/24 History Nitroglycerin Sl Tabs [Nitrostat] 0.4 mg SUBLINGUAL Q5M PRN 08/25/24 08/25/24 History lisinopriL [Zestril] 10 mg PO BID 08/25/24 08/25/24 History Allergies Allergy/AdvReac Type Severity Reaction Status Date / Time cephalexin [From Keflex] Allergy Swelling Verified 08/25/24 09:43 nitrofurantoin Allergy Swelling Verified 08/25/24 09:43 [From Macrobid] sulfamethoxazole Allergy Swelling Verified 08/25/24 09:43 [From Bactrim] trimethoprim [From Bactrim] Allergy Swelling Verified 08/25/24 09:43 Physical Exam Vitals: Vital Signs Temp Pulse Resp BP Pulse Ox 08/25/24 10:00 60 18 120/62 98 08/25/24 09:00 62 18 126/81 98 08/25/24 08:00 54 L 18 126/61 98 08/25/24 07:23 58 L 18 118/56 100 08/25/24 06:07 158/84 08/25/24 05:32 99.0 F 66 18 95 Intake and Output 08/24/24 08/25/24 08/25/24 22:59 06:59 14:59 Other: Weight 79.832 kg Results 08/25/24 05:39 08/25/24 05:39 Cardiac Enzymes 08/25/24 08/25/24 08/25/24 Range/Units 05:39 05:39 08:36 AST 20 (14-36) U/L Troponin I <0.012 <0.012 (0.000-0.034) ng/mL 08/25/24 Range/Units 11:29 AST (14-36) U/L Troponin I <0.012 (0.000-0.034) ng/mL Coagulation 08/25/24 Range/Units 05:39 PT 10.9 (10.0-12.5) sec APTT 24.6 (22.0-30.0) sec CBC 08/25/24 Range/Units 05:39 WBC 10.74 H (4.50-10.00) 10*3/uL RBC 4.76 (4.10-5.20) 10*6/uL Hgb 13.8 (12.0-15.0) g/dL Hct 41.3 (37.2-46.3) % Plt Count 283 (140-440) 10*3/uL Comprehensive Metabolic Panel 08/25/24 Range/Units 05:39 Sodium 140 (137-145) mmol/L Potassium 4.4 (3.5-5.1) mmol/L Chloride 109 H (98-107) mmol/L Carbon Dioxide 19 L (22-30) mmol/L BUN 23 H (7-17) mg/dL Creatinine 0.85 (0.52-1.04) mg/dL Glucose 93 (74-99) mg/dL Calcium 9.8 (8.4-10.2) mg/dL AST 20 (14-36) U/L ALT 13 (4-34) U/L Alkaline Phosphatase 83 (38-126) U/L Total Protein 7.6 (6.3-8.2) g/dL Albumin 4.4 (3.5-5.0) g/dL Current Medications Generic Name Dose Route Start Last Admin Trade Name Freq PRN Reason Stop Dose Admin Acetaminophen 650 mg 08/25/24 07:47 Acetaminophen Tab 325 Mg Tab PO Q6HR PRN Mild Pain or Fever > 100.5 Hydrocodone Bitart/Acetaminophen 1 each 08/25/24 07:47 Hydrocodone/Apap 5-325mg 1 Each Tab PO Q4HR PRN Moderate Pain (Scale 4 to 6) Aspirin 81 mg 08/26/24 09:00 Aspirin 81 Mg PO DAILY STEFF Heparin Sodium (Porcine) 5,000 unit 08/25/24 09:00 08/25/24 10:09 Heparin Sodium,Porcine 5,000 Unit/Ml 1 Ml Vial SQ 5,000 unit Q12HR STEFF Administration Ketorolac Tromethamine 15 mg 08/25/24 07:47 Ketorolac 15 Mg/Ml 1 Ml Vial IVP 08/28/24 07:47 Q6HR PRN Moderate Pain (Scale 4 to 6) Morphine Sulfate 4 mg 08/25/24 07:47 Morphine Sulfate 4 Mg/Ml Syringe IV Q4HR PRN Severe Pain (Scale 7 to 10) Naloxone HCl 0.2 mg 08/25/24 07:47 Naloxone 0.4 Mg/Ml 1 Ml Vial IV Q2M PRN Opioid Reversal Ondansetron HCl 4 mg 08/25/24 07:47 Ondansetron 4 Mg/2 Ml Vial IVP Q8HR PRN Nausea And Vomiting Pantoprazole Sodium 40 mg 08/25/24 09:00 08/25/24 10:09 Pantoprazole 40 Mg/10 Ml Vial IV Not Given DAILY STEFF Intake and Output 08/24/24 08/25/24 08/25/24 22:59 06:59 14:59 Other: Weight 79.832 kg 08/25/24 05:39 08/25/24 05:39
[2024-08-25 13:49] VITALS: BP 155/89; PULSE 72
[2024-08-25] MEDS ORDERED: NITROGLYCERIN SL TABS 0.4 MG TAB SUBLINGUAL PRN (14:22)
[2024-08-25] MEDS ORDERED: HYDROcodone/APAP 10-325MG 1 EACH TAB PO PRN (14:22)
[2024-08-25] MEDS ORDERED: lisinopriL 10 MG TAB PO SCH (21:00)
[2024-08-25] MEDS ORDERED: METOPROLOL TARTRATE 50 MG TAB PO SCH (21:00)
[2024-08-25] MEDS ORDERED: GABAPENTIN 300 MG CAP PO SCH (21:00)
--- NOTE | 2024-08-25 21:26 | P.DS ---
Providers Date of admission: 08/25/24 10:48 Attending physician: Bryanna Lan Consults: 08/25/24 07:47 Consult Physician Urgent Consulting Provider: Sun Nick Consult Reason/Comments: Chest pain Do you want consulting provider notified?: Yes Primary care physician: Racquel Aggarwal Hospital Course: Please refer to the H&P from today for more details Diagnosis: Chest pain, most likely musculoskeletal. Resolved. Cardiac causes ruled out Patient evaluated by cardiology team and she was cleared for discharge I talked to the patient over the phone after that she told me her chest pain resolved and currently 0/10 and that she wants to go home. Problems and management plan were discussed with the patient and he verbalized understanding and acceptance Patient was found stable and can be discharged home in guarded prognosis however he needs follow-up as an outpatient. Patient was instructed to follow up with PCP within one week and patient agrees Patient has been instructed to follow-up with her career services officer in 1 to 2 weeks and she agrees Time spent more than 35 minutes Plan - Discharge Summary New Discharge Prescriptions: Continue HYDROcodone/APAP 10-325MG [[place] 10-325] 1 tab PO TID PRN PRN Reason: Pain Nitroglycerin Sl Tabs [Nitrostat] 0.4 mg SUBLINGUAL Q5M PRN PRN Reason: Chest Pain Metoprolol Tartrate [Lopressor] 50 mg PO BID lisinopriL [Zestril] 10 mg PO BID Gabapentin [Neurontin] 300 mg PO BID Discontinued amLODIPine [Norvasc] 5 mg PO BID #60 tab Discharge Medication List HYDROcodone/APAP 10-325MG [[place] 10-325] 1 tab PO TID PRN 05/19/22 [History] Gabapentin [Neurontin] 300 mg PO BID 08/25/24 [History] Metoprolol Tartrate [Lopressor] 50 mg PO BID 08/25/24 [History] Nitroglycerin Sl Tabs [Nitrostat] 0.4 mg SUBLINGUAL Q5M PRN 08/25/24 [History] lisinopriL [Zestril] 10 mg PO BID 08/25/24 [History] Follow up Appointment(s)/Referral(s): Racquel Aggarwal DO [Primary Care Provider] - 1-2 days Sun Nick MD [STAFF PHYSICIAN] - 1 Week Activity/Diet/Wound Care/Special Instructions: heart healthy diet activity is restricted till you see your doctor Discharge Disposition: HOME SELF-CARE
[2024-08-26] MEDS ORDERED: ASPIRIN 81 MG PO SCH (09:00)
== END 2024-08-25 15:14 | disposition home or self-care (01) ==
LOC: EC 05:31 → 6NMEDSUR 10:48
PROVIDERS: ADMIT Hospitalist; ATTEND Hospitalist
DX: R07.89 Other chest pain (principal); I10 Essential (primary) hypertension; K21.9 Gastro-esophageal reflux disease without esophagitis; F41.9 Anxiety disorder, unspecified; E66.9 Obesity, unspecified; Z68.34 Body mass index [BMI] 34.0-34.9, adult; Z87.891 Personal history of nicotine dependence; Z79.899 Other long term (current) drug therapy; Z88.1 Allergy status to other antibiotic agents; Z88.2 Allergy status to sulfonamides
CPT/HCPCS: 96372; 96374; 96375; 99285; 36415; 93005; 80053; 83690; 83735; 84484; 85025; 85610; 85730; 71046; G0378; J2270; J1644; J1885